=== PATIENT | female | born 1955 | race Caucasian/White ===

== ENCOUNTER → 2016-06-11 | Outpatient (CLI) | payer OTHER ==
[~2016-06-11] MED LIST: ACET-1311 PO; ATOR-22 PO; CALC-5 PO; CARB-157 PO; CHOL1TAB76 PO; CLC100 PO; CLZ100 PO; CTP3 PO; CZR50 PO; DICL1GEL12 TOP; DLCS PR; DLN100 PO; FLTE PR; HYDR-5688 PO; LEVE1TAB57 PO; MAGNSUS5 PO; METO100T14 PO; MULT-412 PO; OMEG1200 PO; OMEP20CA9 PO; TRAZ1TAB52 PO; [UNRECOGNIZED DRUG - CODE] TOP
[2016-06-11 09:29] LABS: BASO % 0.4 %; BASO ABS # 0.03 K/uL (0-0.2); COMPLETE YES; EOS % 2.6 %; HEMATOCRIT 37.9 % (37-47); LYMPH % 47.9 %; LYMPH ABS # 3.48 K/uL (1.2-3.4); MEAN CELL VOLUME 89.6 fL (80-100); MEAN CORPUSCULAR HGB CONC 34.6 g/dl (32-36); MEAN PLATELET VOLUME 11.9 fL (7.4-10.4); MONO % 9.1 %; PLATELET COUNT 206 K/uL (130-400); RED BLOOD COUNT 4.23 M/uL (4.2-5.4); WHITE BLOOD COUNT 7.27 K/uL (4.8-10.8)
== END ==
LOC: C.LABUPBEA 08:59
PROVIDERS: ATTEND Family Medicine
DX: F25.9 Schizoaffective disorder, unspecified (principal)

== ENCOUNTER → 2016-06-18 | Outpatient (CLI) | payer OTHER ==
[2016-06-18 09:15] LABS: BASO % 0.6 %; BASO ABS # 0.04 K/uL (0-0.2); COMPLETE YES; EOS % 2.2 %; HEMATOCRIT 39.2 % (37-47); IG% 0.1 %; LYMPH % 48.9 %; LYMPH ABS # 3.54 K/uL (1.2-3.4); MEAN CELL VOLUME 89.7 fL (80-100); MEAN CORPUSCULAR HEMOGLOBIN 30.4 pg (25-34); MEAN CORPUSCULAR HGB CONC 33.9 g/dl (32-36); MEAN PLATELET VOLUME 11.5 fL (7.4-10.4); NEUT % 39.2 %; PLATELET COUNT 194 K/uL (130-400); RED BLOOD COUNT 4.37 M/uL (4.2-5.4); WHITE BLOOD COUNT 7.24 K/uL (4.8-10.8)
== END ==
LOC: C.LABUPBEA 09:06
PROVIDERS: ATTEND Family Medicine
DX: F25.9 Schizoaffective disorder, unspecified (principal)

== ENCOUNTER → 2016-06-25 | Outpatient (CLI) | payer OTHER ==
[2016-06-25 09:44] LABS: BASO % 0.6 %; BASO ABS # 0.04 K/uL (0-0.2); COMPLETE YES; EOS % 2.4 %; HEMATOCRIT 37.2 % (37-47); IG% 0.3 %; LYMPH % 49.8 %; LYMPH ABS # 3.55 K/uL (1.2-3.4); MEAN CORPUSCULAR HEMOGLOBIN 31.1 pg (25-34); MEAN CORPUSCULAR HGB CONC 34.9 g/dl (32-36); MEAN PLATELET VOLUME 11.9 fL (7.4-10.4); NEUT % 37.9 %; PLATELET COUNT 209 K/uL (130-400); RED BLOOD COUNT 4.18 M/uL (4.2-5.4); WHITE BLOOD COUNT 7.13 K/uL (4.8-10.8)
== END | disposition home or self-care (01) ==
LOC: C.LABUPBEA 09:25
PROVIDERS: ATTEND Family Medicine
DX: F25.9 Schizoaffective disorder, unspecified (principal)

== ENCOUNTER → 2016-07-02 | Outpatient (CLI) | payer OTHER ==
[2016-07-02 09:31] LABS: BASO % 0.4 %; BASO ABS # 0.03 K/uL (0-0.2); COMPLETE YES; EOS % 2.5 %; HEMATOCRIT 37.4 % (37-47); IG% 0.3 %; LYMPH % 45.3 %; LYMPH ABS # 3.25 K/uL (1.2-3.4); MEAN CELL VOLUME 89.5 fL (80-100); MEAN CORPUSCULAR HEMOGLOBIN 30.6 pg (25-34); MEAN CORPUSCULAR HGB CONC 34.2 g/dl (32-36); MEAN PLATELET VOLUME 12.2 fL (7.4-10.4); MONO % 8.9 %; NEUT % 42.6 %; PLATELET COUNT 202 K/uL (130-400); RED BLOOD COUNT 4.18 M/uL (4.2-5.4); WHITE BLOOD COUNT 7.18 K/uL (4.8-10.8)
== END | disposition home or self-care (01) ==
LOC: C.LABUPBEA 09:04
PROVIDERS: ATTEND Family Medicine
DX: F25.9 Schizoaffective disorder, unspecified (principal)

== ENCOUNTER → 2016-07-10 | Outpatient (CLI) | payer OTHER ==
[2016-07-10 08:44] LABS: ALT/SGPT 51 U/L (12-78); BLOOD UREA NITROGEN 17 mg/dl (7-18); BUN/CREATININE RATIO 22.4 (10-20); CARBON DIOXIDE 22 mmol/L (21-32); CHLORIDE 104 mmol/L (98-107); CREATININE 0.74 mg/dl (0.60-1.20); GLUCOSE 175 mg/dl (70-99); SODIUM 139 mmol/L (136-145)
[2016-07-10 08:47] LABS: ALB/GLOB RATIO 0.8 (0.9-2); ALKALINE PHOSPHATASE 170 U/L (45-117); AST/SGOT 36 U/L (15-37)
== END ==
LOC: C.LABUPBEA 08:07
PROVIDERS: ATTEND Family Medicine
DX: F25.9 Schizoaffective disorder, unspecified (principal)

== ENCOUNTER → 2016-07-17 | Outpatient (CLI) | payer OTHER ==
[2016-07-17 09:05] LABS: BASO % 0.5 %; BASO ABS # 0.04 K/uL (0-0.2); COMPLETE YES; HEMATOCRIT 37.6 % (37-47); IG% 0.1 %; LYMPH ABS # 3.58 K/uL (1.2-3.4); MEAN CELL VOLUME 89.7 fL (80-100); MEAN CORPUSCULAR HGB CONC 34.6 g/dl (32-36); MEAN PLATELET VOLUME 11.8 fL (7.4-10.4); MONO % 8.7 %; NEUT % 43.7 %; PLATELET COUNT 216 K/uL (130-400); RED BLOOD COUNT 4.19 M/uL (4.2-5.4); WHITE BLOOD COUNT 7.95 K/uL (4.8-10.8)
== END ==
LOC: C.LABUPBEA 08:49
PROVIDERS: ATTEND Family Medicine
DX: F25.9 Schizoaffective disorder, unspecified (principal)

== ENCOUNTER → 2016-07-24 | Outpatient (CLI) | payer OTHER ==
[2016-07-24 09:17] LABS: MEAN CORPUSCULAR HGB CONC 35.3 g/dl (32-36); PLATELET COUNT 209 K/uL (130-400)
[2016-07-24 09:46] LABS: BASO % 0.6 %; BASO ABS # 0.04 K/uL (0-0.2); COMPLETE YES; IG% 0.1 %; LYMPH % 46.5 %; MEAN CELL VOLUME 89.2 fL (80-100); MEAN CORPUSCULAR HEMOGLOBIN 31.5 pg (25-34); NEUT % 42.8 %; RED BLOOD COUNT 4.26 M/uL (4.2-5.4)
== END ==
LOC: C.LABUPBEA 09:04
PROVIDERS: ATTEND Family Medicine
DX: F25.9 Schizoaffective disorder, unspecified (principal)

== ENCOUNTER → 2016-07-30 | Outpatient (CLI) | payer OTHER ==
[2016-07-30 09:47] LABS: HEMATOCRIT 37.8 % (37-47); MEAN CELL VOLUME 90.2 fL (80-100); MEAN CORPUSCULAR HEMOGLOBIN 31.5 pg (25-34); MEAN CORPUSCULAR HGB CONC 34.9 g/dl (32-36); MEAN PLATELET VOLUME 12.3 fL (7.4-10.4); PLATELET COUNT 186 K/uL (130-400); RED BLOOD COUNT 4.19 M/uL (4.2-5.4); WHITE BLOOD COUNT 6.83 K/uL (4.8-10.8)
[2016-07-30 10:42] LABS: BASO % 0.4 %; BASO ABS # 0.03 K/uL (0-0.2); COMPLETE YES; EOS % 2.6 %; IG% 0.3 %; LYMPH % 51.4 %; LYMPH ABS # 3.51 K/uL (1.2-3.4); MONO % 9.1 %; NEUT % 36.2 %; SMUDGE CELLS PRESENT
== END ==
LOC: C.LABUPBEA 09:10
PROVIDERS: ATTEND Family Medicine
DX: F25.9 Schizoaffective disorder, unspecified (principal)

== ENCOUNTER → 2016-08-06 | Outpatient (CLI) | payer OTHER ==
[2016-08-06 10:08] LABS: BASO % 0.7 %; BASO ABS # 0.05 K/uL (0-0.2); COMPLETE YES; EOS % 2.5 %; HEMATOCRIT 37.2 % (37-47); IG% 0.3 %; LYMPH % 48.7 %; LYMPH ABS # 3.52 K/uL (1.2-3.4); MEAN CELL VOLUME 88.2 fL (80-100); MEAN CORPUSCULAR HGB CONC 35.2 g/dl (32-36); MEAN PLATELET VOLUME 11.7 fL (7.4-10.4); NEUT % 39.8 %; PLATELET COUNT 219 K/uL (130-400); RED BLOOD COUNT 4.22 M/uL (4.2-5.4); WHITE BLOOD COUNT 7.23 K/uL (4.8-10.8)
== END ==
LOC: C.LABUPBEA 09:46
PROVIDERS: ATTEND Family Medicine
DX: F25.9 Schizoaffective disorder, unspecified (principal)

== ENCOUNTER → 2016-08-13 | Outpatient (CLI) | payer OTHER ==
[2016-08-13 09:48] LABS: HEMATOCRIT 38.7 % (37-47); MEAN CELL VOLUME 89.2 fL (80-100); MEAN CORPUSCULAR HEMOGLOBIN 30.2 pg (25-34); MEAN CORPUSCULAR HGB CONC 33.9 g/dl (32-36); MEAN PLATELET VOLUME 11.3 fL (7.4-10.4); PLATELET COUNT 227 K/uL (130-400); RED BLOOD COUNT 4.34 M/uL (4.2-5.4)
[2016-08-13 10:03] LABS: ALT/SGPT 46 U/L (12-78); AST/SGOT 27 U/L (15-37); BLOOD UREA NITROGEN 20 mg/dl (7-18); BUN/CREATININE RATIO 30.3 (10-20); CALCIUM 8.5 mg/dl (8.5-10.1); CARBON DIOXIDE 26 mmol/L (21-32); CHLORIDE 104 mmol/L (98-107); CREATININE 0.67 mg/dl (0.60-1.20); GLUCOSE 119 mg/dl (70-99); SODIUM 140 mmol/L (136-145)
[2016-08-13 10:13] LABS: ALB/GLOB RATIO 0.9 (0.9-2); ALKALINE PHOSPHATASE 144 U/L (45-117); CHOLESTEROL 189 mg/dl (0-200); HDL CHOLESTEROL 47 mg/dl; LDL CHOLESTEROL CALCULATED 99 mg/dl; THYROID STIMULATING HORMONE 0.903 uIu/ml (0.300-4.500); TRIGLYCERIDES 217 mg/dl (0-150); VERY LOW DENSITY LIPOPROT CALC 43 mg/dl
[2016-08-13 10:27] LABS: BASO % 0.3 %; BASO ABS # 0.02 K/uL (0-0.2); COMPLETE YES; EOS % 2.6 %; IG% 0.1 %; LYMPH % 51.9 %; LYMPH ABS # 3.53 K/uL (1.2-3.4); MONO % 7.8 %; NEUT % 37.3 %
== END ==
LOC: C.LABUPBEA 09:14
PROVIDERS: ATTEND Family Medicine
DX: E55.9 Vitamin D deficiency, unspecified (principal); R73.9 Hyperglycemia, unspecified; E78.5 Hyperlipidemia, unspecified; F25.9 Schizoaffective disorder, unspecified; G40.909 Epilepsy, unspecified, not intractable, without status epilepticus

== ENCOUNTER → 2016-08-21 | Outpatient (CLI) | payer OTHER ==
[~2016-08-21] MED LIST changes: -CARB-157 PO; +CARB10TA4 PO
[2016-08-21 10:13] LABS: BASO % 0.5 %; BASO ABS # 0.03 K/uL (0-0.2); COMPLETE YES; EOS % 2.3 %; HEMATOCRIT 37.7 % (37-47); IG% 0.2 %; LYMPH % 48.9 %; LYMPH ABS # 2.98 K/uL (1.2-3.4); MEAN CELL VOLUME 87.7 fL (80-100); MEAN CORPUSCULAR HEMOGLOBIN 30.2 pg (25-34); MEAN CORPUSCULAR HGB CONC 34.5 g/dl (32-36); MEAN PLATELET VOLUME 11.5 fL (7.4-10.4); NEUT % 40.1 %; PLATELET COUNT 230 K/uL (130-400); WHITE BLOOD COUNT 6.09 K/uL (4.8-10.8)
== END ==
LOC: C.LABUPBEA 09:42
PROVIDERS: ATTEND Family Medicine
DX: F25.9 Schizoaffective disorder, unspecified (principal)

== ENCOUNTER → 2016-08-27 | Outpatient (CLI) | payer OTHER ==
[~2016-08-27] MED LIST changes: +CARB-157 PO; -CARB10TA4 PO
[2016-08-27 09:42] LABS: BASO % 0.3 %; BASO ABS # 0.02 K/uL (0-0.2); COMPLETE YES; EOS % 2.6 %; HEMATOCRIT 37.4 % (37-47); IG% 0.3 %; LYMPH % 45.8 %; LYMPH ABS # 3.19 K/uL (1.2-3.4); MEAN CORPUSCULAR HEMOGLOBIN 30.5 pg (25-34); MEAN CORPUSCULAR HGB CONC 34.2 g/dl (32-36); MEAN PLATELET VOLUME 11.4 fL (7.4-10.4); MONO % 8.8 %; NEUT % 42.2 %; PLATELET COUNT 209 K/uL (130-400); WHITE BLOOD COUNT 6.97 K/uL (4.8-10.8)
== END ==
LOC: C.LABUPBEA 09:29
PROVIDERS: ATTEND Family Medicine
DX: F25.9 Schizoaffective disorder, unspecified (principal)

== ENCOUNTER → 2016-09-03 | Outpatient (CLI) | payer OTHER ==
[~2016-09-03] MED LIST changes: -CARB-157 PO; +CARB10TA4 PO
[2016-09-03 09:40] LABS: BASO % 0.9 %; BASO ABS # 0.05 K/uL (0-0.2); COMPLETE YES; EOS % 3.2 %; HEMATOCRIT 38.5 % (37-47); IG% 0.2 %; LYMPH % 31.1 %; LYMPH ABS # 1.67 K/uL (1.2-3.4); MEAN CELL VOLUME 89.7 fL (80-100); MEAN CORPUSCULAR HEMOGLOBIN 29.8 pg (25-34); MEAN CORPUSCULAR HGB CONC 33.2 g/dl (32-36); MEAN PLATELET VOLUME 11.6 fL (7.4-10.4); MONO % 11.7 %; NEUT % 52.9 %; PLATELET COUNT 187 K/uL (130-400); RED BLOOD COUNT 4.29 M/uL (4.2-5.4); WHITE BLOOD COUNT 5.37 K/uL (4.8-10.8)
== END | disposition home or self-care (01) ==
LOC: C.LABUPBEA 09:12
PROVIDERS: ATTEND Family Medicine
DX: F25.9 Schizoaffective disorder, unspecified (principal)

== ENCOUNTER → 2016-09-10 | Outpatient (CLI) | payer OTHER ==
[2016-09-10 10:58] LABS: HEMATOCRIT 37.7 % (37-47); MEAN CELL VOLUME 90.6 fL (80-100); MEAN CORPUSCULAR HEMOGLOBIN 30.3 pg (25-34); MEAN CORPUSCULAR HGB CONC 33.4 g/dl (32-36); MEAN PLATELET VOLUME 11.6 fL (7.4-10.4); PLATELET COUNT 163 K/uL (130-400); RED BLOOD COUNT 4.16 M/uL (4.2-5.4); WHITE BLOOD COUNT 4.69 K/uL (4.8-10.8)
[2016-09-10 11:48] LABS: BASO % 0.2 %; BASO ABS # 0.01 K/uL (0-0.2); COMPLETE YES; EOS % 1.9 %; IG% 0.4 %; LYMPH % 54.6 %; LYMPH ABS # 2.56 K/uL (1.2-3.4); MONO % 9.8 %; NEUT % 33.1 %
[2016-09-10 11:50] LABS: LARGE PLATELETS 1+
== END ==
LOC: C.LABUPBEA 09:24
PROVIDERS: ATTEND Family Medicine
DX: F25.9 Schizoaffective disorder, unspecified (principal)

== ENCOUNTER → 2016-09-13 | Outpatient (CLI) | payer OTHER ==
[2016-09-13 08:37] LABS: BASO % 0.1 %; BASO ABS # 0.01 K/uL (0-0.2); COMPLETE YES; EOS % 0.5 %; HEMATOCRIT 36.5 % (37-47); IG% 1.3 %; LYMPH % 36.2 %; MEAN CELL VOLUME 87.5 fL (80-100); MEAN CORPUSCULAR HEMOGLOBIN 31.2 pg (25-34); MEAN CORPUSCULAR HGB CONC 35.6 g/dl (32-36); MEAN PLATELET VOLUME 11.5 fL (7.4-10.4); MONO % 7.4 %; NEUT % 54.5 %; PLATELET COUNT 210 K/uL (130-400); RED BLOOD COUNT 4.17 M/uL (4.2-5.4); WHITE BLOOD COUNT 7.73 K/uL (4.8-10.8)
[2016-09-13 08:45] LABS: ALT/SGPT 53 U/L (12-78); AST/SGOT 32 U/L (15-37); BLOOD UREA NITROGEN 15 mg/dl (7-18); BUN/CREATININE RATIO 25.1 (10-20); CALCIUM 8.7 mg/dl (8.5-10.1); CARBON DIOXIDE 25 mmol/L (21-32); CHLORIDE 103 mmol/L (98-107); CREATININE 0.59 mg/dl (0.60-1.20); GLUCOSE 145 mg/dl (70-99); SODIUM 138 mmol/L (136-145)
[2016-09-13 08:47] LABS: ALB/GLOB RATIO 0.8 (0.9-2); ALKALINE PHOSPHATASE 142 U/L (45-117)
[2016-09-13 08:56] LABS: ESTIMATED AVERAGE GLUCOSE 154 mg/dl; HA1C FLAG Normal (Normal)
== END ==
LOC: C.LABUPBEA 08:05
PROVIDERS: ATTEND Family Medicine
DX: R73.9 Hyperglycemia, unspecified (principal); E55.9 Vitamin D deficiency, unspecified; F25.9 Schizoaffective disorder, unspecified

== ENCOUNTER → 2016-09-17 | Outpatient (CLI) | payer OTHER ==
[2016-09-17 08:20] LABS: HEMATOCRIT 38.8 % (37-47); MEAN CELL VOLUME 87.6 fL (80-100); MEAN CORPUSCULAR HGB CONC 34.3 g/dl (32-36); PLATELET COUNT 247 K/uL (130-400); RED BLOOD COUNT 4.43 M/uL (4.2-5.4); WHITE BLOOD COUNT 6.78 K/uL (4.8-10.8)
[2016-09-17 09:28] LABS: BASO % 0.3 %; BASO ABS # 0.02 K/uL (0-0.2); COMPLETE YES; EOS % 1.8 %; IG% 0.3 %; LYMPH % 54.9 %; LYMPH ABS # 3.72 K/uL (1.2-3.4); MONO % 8.7 %
== END ==
LOC: C.LABUPBEA 08:00
PROVIDERS: ATTEND Family Medicine
DX: F25.9 Schizoaffective disorder, unspecified (principal)

== ENCOUNTER → 2016-09-24 | Outpatient (CLI) | payer OTHER ==
[2016-09-24 09:39] LABS: BASO % 0.4 %; BASO ABS # 0.03 K/uL (0-0.2); COMPLETE YES; EOS % 1.7 %; HEMATOCRIT 38.9 % (37-47); IG% 0.1 %; LYMPH % 47.6 %; LYMPH ABS # 3.73 K/uL (1.2-3.4); MEAN CELL VOLUME 88.4 fL (80-100); MEAN CORPUSCULAR HEMOGLOBIN 31.1 pg (25-34); MEAN CORPUSCULAR HGB CONC 35.2 g/dl (32-36); MEAN PLATELET VOLUME 12.2 fL (7.4-10.4); MONO % 6.8 %; NEUT % 43.4 %; PLATELET COUNT 253 K/uL (130-400); WHITE BLOOD COUNT 7.83 K/uL (4.8-10.8)
== END ==
LOC: C.LABUPBEA 09:23
PROVIDERS: ATTEND Family Medicine
DX: F25.9 Schizoaffective disorder, unspecified (principal)

== ENCOUNTER → 2016-10-01 | Outpatient (CLI) | payer OTHER ==
[2016-10-01 10:05] LABS: BASO % 0.4 %; BASO ABS # 0.03 K/uL (0-0.2); COMPLETE YES; EOS % 2.6 %; HEMATOCRIT 38.1 % (37-47); IG% 0.1 %; LYMPH % 44.9 %; LYMPH ABS # 3.29 K/uL (1.2-3.4); MEAN CELL VOLUME 91.8 fL (80-100); MEAN CORPUSCULAR HEMOGLOBIN 30.4 pg (25-34); MEAN CORPUSCULAR HGB CONC 33.1 g/dl (32-36); MEAN PLATELET VOLUME 11.1 fL (7.4-10.4); MONO % 8.9 %; NEUT % 43.1 %; PLATELET COUNT 227 K/uL (130-400); RED BLOOD COUNT 4.15 M/uL (4.2-5.4); WHITE BLOOD COUNT 7.33 K/uL (4.8-10.8)
== END | disposition home or self-care (01) ==
LOC: C.LABUPBEA 09:43
PROVIDERS: ATTEND Family Medicine
DX: F25.9 Schizoaffective disorder, unspecified (principal)

== ENCOUNTER → 2016-10-08 | Outpatient (CLI) | payer OTHER ==
[2016-10-08 10:16] LABS: BASO % 0.6 %; BASO ABS # 0.04 K/uL (0-0.2); COMPLETE YES; EOS % 2.2 %; HEMATOCRIT 38.5 % (37-47); IG% 0.1 %; LYMPH % 44.2 %; LYMPH ABS # 3.19 K/uL (1.2-3.4); MEAN CELL VOLUME 91.7 fL (80-100); MEAN CORPUSCULAR HEMOGLOBIN 30.5 pg (25-34); MEAN CORPUSCULAR HGB CONC 33.2 g/dl (32-36); MEAN PLATELET VOLUME 11.1 fL (7.4-10.4); NEUT % 44.9 %; PLATELET COUNT 232 K/uL (130-400); WHITE BLOOD COUNT 7.22 K/uL (4.8-10.8)
== END ==
LOC: C.LABUPBEA 09:28
PROVIDERS: ATTEND Family Medicine
DX: F25.9 Schizoaffective disorder, unspecified (principal); G40.909 Epilepsy, unspecified, not intractable, without status epilepticus

== ENCOUNTER → 2016-10-22 | Outpatient (CLI) | payer OTHER ==
[2016-10-22 09:51] LABS: BASO % 0.4 %; BASO ABS # 0.03 K/uL (0-0.2); COMPLETE YES; EOS % 2.3 %; HEMATOCRIT 37.9 % (37-47); IG% 0.1 %; LYMPH % 45.6 %; LYMPH ABS # 3.31 K/uL (1.2-3.4); MEAN CORPUSCULAR HEMOGLOBIN 30.6 pg (25-34); MEAN CORPUSCULAR HGB CONC 33.2 g/dl (32-36); MEAN PLATELET VOLUME 11.7 fL (7.4-10.4); NEUT % 42.6 %; PLATELET COUNT 234 K/uL (130-400); RED BLOOD COUNT 4.12 M/uL (4.2-5.4); WHITE BLOOD COUNT 7.26 K/uL (4.8-10.8)
== END | disposition home or self-care (01) ==
LOC: C.LABUPBEA 09:37
PROVIDERS: ATTEND Family Medicine
DX: F25.9 Schizoaffective disorder, unspecified (principal)

== ENCOUNTER → 2016-10-29 | Outpatient (CLI) | payer OTHER ==
[2016-10-29 10:50] LABS: BASO % 0.5 %; BASO ABS # 0.04 K/uL (0-0.2); COMPLETE YES; EOS % 2.2 %; HEMATOCRIT 39.5 % (37-47); IG% 0.1 %; LYMPH % 48.2 %; LYMPH ABS # 3.57 K/uL (1.2-3.4); MEAN CELL VOLUME 91.9 fL (80-100); MEAN CORPUSCULAR HEMOGLOBIN 30.2 pg (25-34); MEAN CORPUSCULAR HGB CONC 32.9 g/dl (32-36); MEAN PLATELET VOLUME 11.5 fL (7.4-10.4); MONO % 6.1 %; NEUT % 42.9 %; PLATELET COUNT 235 K/uL (130-400)
== END ==
LOC: C.LABUPBEA 09:20
PROVIDERS: ATTEND Nurse Practitioner Family
DX: F25.9 Schizoaffective disorder, unspecified (principal)

== ENCOUNTER → 2016-11-12 | Outpatient (CLI) | payer OTHER ==
[2016-11-12 10:18] LABS: BASO % 0.2 %; BASO ABS # 0.02 K/uL (0-0.2); COMPLETE YES; EOS % 1.2 %; HEMATOCRIT 38.8 % (37-47); IG% 0.1 %; LYMPH % 49.3 %; LYMPH ABS # 4.15 K/uL (1.2-3.4); MEAN CELL VOLUME 91.5 fL (80-100); MEAN CORPUSCULAR HEMOGLOBIN 30.9 pg (25-34); MEAN CORPUSCULAR HGB CONC 33.8 g/dl (32-36); MEAN PLATELET VOLUME 11.9 fL (7.4-10.4); MONO % 7.7 %; NEUT % 41.5 %; PLATELET COUNT 239 K/uL (130-400); RED BLOOD COUNT 4.24 M/uL (4.2-5.4); WHITE BLOOD COUNT 8.41 K/uL (4.8-10.8)
== END ==
LOC: C.LABUPBEA 09:22
PROVIDERS: ATTEND Family Medicine
DX: F25.9 Schizoaffective disorder, unspecified (principal)

== ENCOUNTER → 2016-11-19 | Outpatient (CLI) | payer OTHER ==
[2016-11-19 13:33] LABS: HEMATOCRIT 39.1 % (37-47); MEAN CELL VOLUME 92.9 fL (80-100); MEAN CORPUSCULAR HEMOGLOBIN 30.9 pg (25-34); MEAN CORPUSCULAR HGB CONC 33.2 g/dl (32-36); MEAN PLATELET VOLUME 11.7 fL (7.4-10.4); PLATELET COUNT 209 K/uL (130-400); RED BLOOD COUNT 4.21 M/uL (4.2-5.4); WHITE BLOOD COUNT 6.65 K/uL (4.8-10.8)
[2016-11-19 13:40] LABS: BASO % 0.5 %; BASO ABS # 0.03 K/uL (0-0.2); COMPLETE YES; ECHINOCYTES 1+; EOS % 2.4 %; IG% 0.2 %; LYMPH % 51.1 %; MONO % 7.8 %
== END ==
LOC: C.LABUPBEA 09:12
PROVIDERS: ATTEND Family Medicine
DX: F25.9 Schizoaffective disorder, unspecified (principal)

== ENCOUNTER → 2016-11-26 | Outpatient (CLI) | payer OTHER ==
[2016-11-26 11:01] LABS: BASO % 0.6 %; BASO ABS # 0.04 K/uL (0-0.2); COMPLETE YES; EOS % 2.2 %; HEMATOCRIT 37.5 % (37-47); IG% 0.1 %; LYMPH % 46.7 %; LYMPH ABS # 3.13 K/uL (1.2-3.4); MEAN CELL VOLUME 91.9 fL (80-100); MEAN CORPUSCULAR HEMOGLOBIN 30.9 pg (25-34); MEAN CORPUSCULAR HGB CONC 33.6 g/dl (32-36); MEAN PLATELET VOLUME 11.5 fL (7.4-10.4); MONO % 8.8 %; NEUT % 41.6 %; PLATELET COUNT 207 K/uL (130-400); RED BLOOD COUNT 4.08 M/uL (4.2-5.4)
== END ==
LOC: C.LABUPBEA 09:54
PROVIDERS: ATTEND Family Medicine
DX: F25.9 Schizoaffective disorder, unspecified (principal); Z79.899 Other long term (current) drug therapy

== ENCOUNTER → 2016-12-03 | Outpatient (CLI) | payer OTHER ==
[~2016-12-03] MED LIST changes: +CARB-157 PO; -CARB10TA4 PO
[2016-12-03 10:59] LABS: BASO % 0.5 %; BASO ABS # 0.04 K/uL (0-0.2); COMPLETE YES; EOS % 1.9 %; HEMATOCRIT 40.5 % (37-47); IG% 0.1 %; LYMPH % 45.1 %; LYMPH ABS # 3.73 K/uL (1.2-3.4); MEAN CORPUSCULAR HEMOGLOBIN 30.8 pg (25-34); MEAN CORPUSCULAR HGB CONC 33.8 g/dl (32-36); MEAN PLATELET VOLUME 11.6 fL (7.4-10.4); MONO % 6.5 %; NEUT % 45.9 %; PLATELET COUNT 241 K/uL (130-400); RED BLOOD COUNT 4.45 M/uL (4.2-5.4); WHITE BLOOD COUNT 8.27 K/uL (4.8-10.8)
== END ==
LOC: C.LABUPBEA 08:49
PROVIDERS: ATTEND Nurse Practitioner Family
DX: F25.9 Schizoaffective disorder, unspecified (principal)

== ENCOUNTER → 2016-12-09 | Outpatient (CLI) | payer OTHER ==
[2016-12-09 09:28] LABS: BASO % 0.5 %; BASO ABS # 0.04 K/uL (0-0.2); COMPLETE YES; EOS % 2.1 %; HEMATOCRIT 38.7 % (37-47); IG% 0.1 %; LYMPH % 45.3 %; LYMPH ABS # 3.63 K/uL (1.2-3.4); MEAN CELL VOLUME 91.3 fL (80-100); MEAN CORPUSCULAR HEMOGLOBIN 30.2 pg (25-34); MEAN CORPUSCULAR HGB CONC 33.1 g/dl (32-36); MEAN PLATELET VOLUME 11.6 fL (7.4-10.4); MONO % 7.7 %; NEUT % 44.3 %; PLATELET COUNT 215 K/uL (130-400); RED BLOOD COUNT 4.24 M/uL (4.2-5.4); WHITE BLOOD COUNT 8.01 K/uL (4.8-10.8)
== END ==
LOC: C.LABUPBEA 08:53
PROVIDERS: ATTEND Nurse Practitioner Family
DX: F25.9 Schizoaffective disorder, unspecified (principal)

== ENCOUNTER → 2016-12-17 | Outpatient (CLI) | payer OTHER ==
[2016-12-17 10:07] LABS: BASO % 0.4 %; BASO ABS # 0.03 K/uL (0-0.2); COMPLETE YES; EOS % 1.8 %; HEMATOCRIT 41.4 % (37-47); IG% 0.2 %; LYMPH % 41.7 %; LYMPH ABS # 3.38 K/uL (1.2-3.4); MEAN CELL VOLUME 91.2 fL (80-100); MEAN CORPUSCULAR HEMOGLOBIN 29.7 pg (25-34); MEAN CORPUSCULAR HGB CONC 32.6 g/dl (32-36); MEAN PLATELET VOLUME 11.5 fL (7.4-10.4); MONO % 7.5 %; NEUT % 48.4 %; PLATELET COUNT 202 K/uL (130-400); RED BLOOD COUNT 4.54 M/uL (4.2-5.4); WHITE BLOOD COUNT 8.11 K/uL (4.8-10.8)
== END | disposition home or self-care (01) ==
LOC: C.LABUPBEA 09:32
PROVIDERS: ATTEND Family Medicine
DX: F25.9 Schizoaffective disorder, unspecified (principal)

== ENCOUNTER → 2016-12-24 | Outpatient (CLI) | payer OTHER ==
[2016-12-24 09:33] LABS: HEMATOCRIT 37.6 % (37-47); MEAN CELL VOLUME 90.4 fL (80-100); MEAN CORPUSCULAR HEMOGLOBIN 30.3 pg (25-34); MEAN CORPUSCULAR HGB CONC 33.5 g/dl (32-36); PLATELET COUNT 235 K/uL (130-400); RED BLOOD COUNT 4.16 M/uL (4.2-5.4); WHITE BLOOD COUNT 7.01 K/uL (4.8-10.8)
[2016-12-24 10:36] LABS: BASO % 0.3 %; BASO ABS # 0.02 K/uL (0-0.2); COMPLETE YES; EOS % 2.3 %; IG% 0.1 %; LYMPH % 50.2 %; LYMPH ABS # 3.52 K/uL (1.2-3.4); MONO % 8.4 %; NEUT % 38.7 %
== END ==
LOC: C.LABUPBEA 08:43
PROVIDERS: ATTEND Family Medicine
DX: Z01.89 Encounter for other specified special examinations (principal)

== ENCOUNTER → 2016-12-25 | Outpatient (CLI) | payer OTHER ==
--- NOTE | 2016-12-25 15:43 | MAMMOGRAPHY REPORT ---
BILATERAL DIGITAL SCREENING MAMMOGRAM WITH CAD: 12/25/2016 CLINICAL HISTORY: Routine screening. Patient has no complaints. TECHNIQUE: Bilateral CC and MLO 2-D views were obtained. Tomosynthesis was also attempted on the fir st image (right CC projection), but the patient could not tolerate holding still for the exam. There fore the decision was made to perform only 2-D mammograms. Current study was also evaluated with a C omputer Aided Detection (CAD) system. COMPARISON: Comparison is made to exams dated: 03/03/2014 mammogram, 10/15/2013 mammogram, 08/11/2013 karthik mogram, 07/27/2013 mammogram, and 07/24/2012 mammogram - [facility]. BREAST COMPOSITION: The tissue of both breasts is almost entirely fatty. FINDINGS: There is a possible grouping of microcalcifications in the upper outer anterior left breas t, for which additional spot magnification views are recommended. There are other scattered benign-appearing microcalcifications bilaterally. No other suspicious mass , architectural distortion or cluster of microcalcifications is seen. IMPRESSION: ACR BI-RADS CATEGORY 0: INCOMPLETE EVALUATION: NEED ADDITIONAL IMAGING EVALUATION The possible grouping of microcalcifications in the upper outer anterior left breast needs additional evaluation. The patient will be called to schedule an appointment. Approximately 10% of breast cancers are not detected with mammography. A negative mammographic report should not delay biopsy if a clinically suggestive mass is present. Krysta Brunner M.D. ay/:12/25/2016 15:32:30 [employer] Former: Arabella CRUZ(Willy)(Libby)(HARVEY), [facility] letter sent: Addl Imaging 0 BI-RADS Code: ACR BI-RADS Category 0: Incomplete Evaluation: Need Additional Imaging Evaluation
== END ==
LOC: C.MAMM 14:41
PROVIDERS: ATTEND Family Medicine
DX: Z12.31 Encounter for screening mammogram for malignant neoplasm of breast (principal); R92.8 Other abnormal and inconclusive findings on diagnostic imaging of breast

== ENCOUNTER → 2016-12-31 | Outpatient (CLI) | payer OTHER ==
[2016-12-31 10:04] LABS: BASO % 0.4 %; BASO ABS # 0.03 K/uL (0-0.2); COMPLETE YES; EOS % 1.7 %; HEMATOCRIT 38.2 % (37-47); IG% 0.4 %; LYMPH % 41.5 %; LYMPH ABS # 3.23 K/uL (1.2-3.4); MEAN CELL VOLUME 91.2 fL (80-100); MEAN CORPUSCULAR HEMOGLOBIN 30.5 pg (25-34); MEAN CORPUSCULAR HGB CONC 33.5 g/dl (32-36); MEAN PLATELET VOLUME 11.4 fL (7.4-10.4); MONO % 8.4 %; NEUT % 47.6 %; PLATELET COUNT 240 K/uL (130-400); RED BLOOD COUNT 4.19 M/uL (4.2-5.4); WHITE BLOOD COUNT 7.78 K/uL (4.8-10.8)
== END | disposition home or self-care (01) ==
LOC: C.LABUPBEA 08:38
PROVIDERS: ATTEND Family Medicine
DX: F25.9 Schizoaffective disorder, unspecified (principal)

== ENCOUNTER → 2017-01-07 | Outpatient (CLI) | payer OTHER ==
--- NOTE | 2017-01-07 13:09 | MAMMOGRAPHY REPORT ---
UNILATERAL LEFT DIGITAL DIAGNOSTIC MAMMOGRAM: 01/07/2017 CLINICAL HISTORY: 61-year-old woman called back from screening mammography for possible increasing mi crocalcifications in the upper outer anterior left breast. A stereotactic biopsy was originally josephine mmended in August 2013. When the patient presented for biopsy she was not able to consent and also de clined the procedure, therefore it was canceled. Subsequent follow-up spot magnification views of th e left breast were performed in February 2014 and additional follow-up is recommended. The patient subsequently failed to follow-up until her screening mammogram performed 3 years later, on 12/25/2016 . TECHNIQUE: Spot magnification left CC and ML views were obtained. COMPARISON: Comparison is made to exams dated: 12/25/2016 mammogram, 03/03/2014 mammogram, 10/15/2013 ma mmogram, 08/11/2013 mammogram, 07/27/2013 mammogram, and 07/24/2012 mammogram - [facility]. BREAST COMPOSITION: There are scattered areas of fibroglandular density in the left breast. FINDINGS: There is a 13 mm cluster of punctate and amorphous microcalcifications in the upper outer anterior left breast. When comparing to the prior spot magnification views obtained in 2013, the maria guadalupe cifications appear increased in number. The previous cluster measured 3 mm. Given the interval oscar ge, tissue sampling is again recommended. No obvious associated asymmetry, mass or architectural dis tortion. None of the calcifications were identified in this location on the 2013 mammograms. IMPRESSION: ACR BI-RADS CATEGORY 4B: INTERMEDIATE SUSPICION FOR MALIGNANCY There are increased clustered microcalcifications in the upper outer anterior left breast, previously measuring 3 mm now measuring 13 mm in maximum dimension. These calcifications are suspicious, warra nting definitive characterization with tissue sampling. These results and recommendations were discussed with the patient and her aid at the time of the diag nostic exam. After discussing the results and the entire procedure of stereotactic biopsy as well as needle localization and surgical biopsy, the patient has poor insight and little understanding of my description of the procedures. Therefore, I will discuss these findings with her referring physicia n and we can discuss possible options. Approximately 10% of breast cancers are not detected with mammography. A negative mammographic report should not delay biopsy if a clinically suggestive mass is present. Krysta Brunner M.D. ay/:01/07/2017 12:41:29 Talent Specialist: Fatemeh Huber RT(R)(M), [facility] letter sent: Abnormal 4/5 BI-RADS Code: ACR BI-RADS Category 4B: Intermediate Suspicion For Malignancy
== END ==
LOC: C.MAMM 09:46
PROVIDERS: ATTEND Family Medicine
DX: R92.0 Mammographic microcalcification found on diagnostic imaging of breast (principal)

== ENCOUNTER → 2017-01-07 | Outpatient (CLI) | payer OTHER ==
[2017-01-07 11:40] LABS: BASO % 0.5 %; BASO ABS # 0.03 K/uL (0-0.2); COMPLETE YES; HEMATOCRIT 37.7 % (37-47); IG% 0.3 %; LYMPH % 47.4 %; LYMPH ABS # 3.06 K/uL (1.2-3.4); MEAN CELL VOLUME 92.6 fL (80-100); MEAN CORPUSCULAR HEMOGLOBIN 31.2 pg (25-34); MEAN CORPUSCULAR HGB CONC 33.7 g/dl (32-36); MEAN PLATELET VOLUME 11.4 fL (7.4-10.4); MONO % 7.8 %; PLATELET COUNT 210 K/uL (130-400); RED BLOOD COUNT 4.07 M/uL (4.2-5.4); WHITE BLOOD COUNT 6.45 K/uL (4.8-10.8)
== END ==
LOC: C.LABUPBEA 10:25
PROVIDERS: ATTEND Nurse Practitioner Family
DX: F25.9 Schizoaffective disorder, unspecified (principal); G40.909 Epilepsy, unspecified, not intractable, without status epilepticus

== ENCOUNTER → 2017-01-14 | Outpatient (CLI) | payer OTHER ==
[2017-01-14 10:33] LABS: BASO % 0.4 %; BASO ABS # 0.03 K/uL (0-0.2); COMPLETE YES; EOS % 2.2 %; HEMATOCRIT 37.9 % (37-47); IG% 0.1 %; LYMPH % 48.3 %; LYMPH ABS # 3.45 K/uL (1.2-3.4); MEAN CELL VOLUME 91.3 fL (80-100); MEAN CORPUSCULAR HEMOGLOBIN 30.8 pg (25-34); MEAN CORPUSCULAR HGB CONC 33.8 g/dl (32-36); MEAN PLATELET VOLUME 11.3 fL (7.4-10.4); MONO % 9.2 %; NEUT % 39.8 %; PLATELET COUNT 213 K/uL (130-400); RED BLOOD COUNT 4.15 M/uL (4.2-5.4); WHITE BLOOD COUNT 7.14 K/uL (4.8-10.8)
== END ==
LOC: C.LABUPBEA 09:15
PROVIDERS: ATTEND Nurse Practitioner Family
DX: F25.9 Schizoaffective disorder, unspecified (principal)

== ENCOUNTER → 2017-01-21 | Outpatient (CLI) | payer OTHER ==
[2017-01-21 10:33] LABS: BASO % 0.5 %; BASO ABS # 0.04 K/uL (0-0.2); COMPLETE YES; HEMATOCRIT 42.3 % (37-47); IG% 0.1 %; LYMPH % 47.1 %; LYMPH ABS # 3.73 K/uL (1.2-3.4); MEAN CELL VOLUME 91.4 fL (80-100); MEAN CORPUSCULAR HEMOGLOBIN 29.6 pg (25-34); MEAN CORPUSCULAR HGB CONC 32.4 g/dl (32-36); MEAN PLATELET VOLUME 11.8 fL (7.4-10.4); MONO % 7.6 %; NEUT % 42.7 %; PLATELET COUNT 243 K/uL (130-400); RED BLOOD COUNT 4.63 M/uL (4.2-5.4); WHITE BLOOD COUNT 7.92 K/uL (4.8-10.8)
== END ==
LOC: C.LABUPBEA 10:07
PROVIDERS: ATTEND Nurse Practitioner Family
DX: F25.9 Schizoaffective disorder, unspecified (principal)

== ENCOUNTER → 2017-01-28 | Outpatient (CLI) | payer OTHER ==
[2017-01-28 10:51] LABS: HEMATOCRIT 37.5 % (37-47); MEAN CELL VOLUME 90.1 fL (80-100); MEAN CORPUSCULAR HGB CONC 34.4 g/dl (32-36); MEAN PLATELET VOLUME 11.2 fL (7.4-10.4); PLATELET COUNT 223 K/uL (130-400); RED BLOOD COUNT 4.16 M/uL (4.2-5.4); WHITE BLOOD COUNT 7.51 K/uL (4.8-10.8)
[2017-01-28 11:59] LABS: COMPLETE YES; ECHINOCYTES 1+; EOSINOPHIL % 1.7 %; LARGE GRANULAR LYMPH ABSOLUTE 1.11 K/uL; LARGE GRANULAR LYMPHOCYTE % 14.8 %; LYMPHOCYTE % 45.3 %; NEUTROPHILS % 33.9 %; VACUOLIZATION 3+
== END | disposition home or self-care (01) ==
LOC: C.LABUPBEA 09:38
PROVIDERS: ATTEND Nurse Practitioner Family
DX: F25.9 Schizoaffective disorder, unspecified (principal)

== ENCOUNTER → 2017-02-04 | Outpatient (CLI) | payer OTHER ==
[2017-02-04 10:09] LABS: HEMATOCRIT 39.3 % (37-47); MEAN CORPUSCULAR HGB CONC 34.1 g/dl (32-36); MEAN PLATELET VOLUME 12.2 fL (7.4-10.4); PLATELET COUNT 209 K/uL (130-400); RED BLOOD COUNT 4.32 M/uL (4.2-5.4); WHITE BLOOD COUNT 6.85 K/uL (4.8-10.8)
[2017-02-04 12:09] LABS: COMPLETE YES; EOSINOPHIL % 0.9 %; LARGE GRANULAR LYMPH ABSOLUTE 1.08 K/uL; LARGE GRANULAR LYMPHOCYTE % 15.7 %; LYMPH ABS # 3.03 K/uL (1.2-3.4); LYMPHOCYTE % 44.3 %; VACUOLIZATION 1+
== END | disposition home or self-care (01) ==
LOC: C.LABUPBEA 09:17
PROVIDERS: ATTEND Nurse Practitioner Family
DX: F25.9 Schizoaffective disorder, unspecified (principal)

== ENCOUNTER → 2017-02-11 | Outpatient (CLI) | payer OTHER ==
[2017-02-11 10:34] LABS: BASO % 0.3 %; BASO ABS # 0.02 K/uL (0-0.2); COMPLETE YES; EOS % 2.3 %; HEMATOCRIT 38.1 % (37-47); IG% 0.3 %; LYMPH % 49.8 %; LYMPH ABS # 3.29 K/uL (1.2-3.4); MEAN CELL VOLUME 91.8 fL (80-100); MEAN CORPUSCULAR HEMOGLOBIN 30.4 pg (25-34); MEAN CORPUSCULAR HGB CONC 33.1 g/dl (32-36); MEAN PLATELET VOLUME 11.5 fL (7.4-10.4); MONO % 8.8 %; NEUT % 38.5 %; PLATELET COUNT 228 K/uL (130-400); RED BLOOD COUNT 4.15 M/uL (4.2-5.4); WHITE BLOOD COUNT 6.61 K/uL (4.8-10.8)
[2017-02-11 10:53] LABS: ALT/SGPT 48 U/L (12-78); BLOOD UREA NITROGEN 20 mg/dl (7-18); BUN/CREATININE RATIO 30.6 (10-20); CALCIUM 8.9 mg/dl (8.5-10.1); CARBON DIOXIDE 25 mmol/L (21-32); CHLORIDE 105 mmol/L (98-107); CHOLESTEROL 216 mg/dl (0-200); CREATININE 0.64 mg/dl (0.60-1.20); GLUCOSE 120 mg/dl (70-99); SODIUM 139 mmol/L (136-145)
[2017-02-11 11:03] LABS: ALB/GLOB RATIO 0.9 (0.9-2); ALKALINE PHOSPHATASE 147 U/L (45-117); AST/SGOT 24 U/L (15-37); HDL CHOLESTEROL 43 mg/dl; LDL CHOLESTEROL CALCULATED 113 mg/dl; TRIGLYCERIDES 301 mg/dl (0-150); VERY LOW DENSITY LIPOPROT CALC 60 mg/dl
== END ==
LOC: C.LABUPBEA 10:03
PROVIDERS: ATTEND Nurse Practitioner Family
DX: R73.9 Hyperglycemia, unspecified (principal); F25.9 Schizoaffective disorder, unspecified; I10 Essential (primary) hypertension; E55.9 Vitamin D deficiency, unspecified; E78.5 Hyperlipidemia, unspecified

== ENCOUNTER → 2017-02-18 | Outpatient (CLI) | payer OTHER ==
[2017-02-18 08:33] LABS: HEMATOCRIT 39.1 % (37-47); MEAN CELL VOLUME 90.5 fL (80-100); MEAN CORPUSCULAR HEMOGLOBIN 30.8 pg (25-34); MEAN PLATELET VOLUME 11.7 fL (7.4-10.4); PLATELET COUNT 211 K/uL (130-400); RED BLOOD COUNT 4.32 M/uL (4.2-5.4)
[2017-02-18 10:07] LABS: BASO ABS # 0.13 K/uL (0-0.2); BASOPHIL % 1.7 %; COMPLETE YES; EOSINOPHIL % 1.7 %; LYMPH ABS # 2.81 K/uL (1.2-3.4); LYMPHOCYTE % 37.4 %; NEUTROPHILS % 35.7 %; VACUOLIZATION 1+; VARIANT LYM ABS # 1.24 K/uL; VARIANT LYMPHOCYTE % 16.5 %
== END ==
LOC: C.LABUPBEA 08:06
PROVIDERS: ATTEND Nurse Practitioner Family
DX: F25.9 Schizoaffective disorder, unspecified (principal)

== ENCOUNTER → 2017-02-25 | Outpatient (CLI) | payer OTHER ==
[2017-02-25 09:25] LABS: BASO % 0.4 %; BASO ABS # 0.03 K/uL (0-0.2); COMPLETE YES; EOS % 2.4 %; HEMATOCRIT 39.4 % (37-47); IG% 0.3 %; LYMPH % 44.7 %; LYMPH ABS # 3.29 K/uL (1.2-3.4); MEAN CELL VOLUME 92.1 fL (80-100); MEAN CORPUSCULAR HEMOGLOBIN 29.9 pg (25-34); MEAN CORPUSCULAR HGB CONC 32.5 g/dl (32-36); MEAN PLATELET VOLUME 11.8 fL (7.4-10.4); MONO % 7.9 %; NEUT % 44.3 %; PLATELET COUNT 214 K/uL (130-400); RED BLOOD COUNT 4.28 M/uL (4.2-5.4); WHITE BLOOD COUNT 7.36 K/uL (4.8-10.8)
== END ==
LOC: C.LABUPBEA 09:02
PROVIDERS: ATTEND Nurse Practitioner Family
DX: F25.9 Schizoaffective disorder, unspecified (principal)

== ENCOUNTER → 2017-03-04 | Outpatient (CLI) | payer OTHER ==
[2017-03-04 09:13] LABS: BASO % 0.4 %; BASO ABS # 0.03 K/uL (0-0.2); COMPLETE YES; EOS % 1.8 %; HEMATOCRIT 37.5 % (37-47); IG% 0.2 %; LYMPH % 45.7 %; LYMPH ABS # 3.74 K/uL (1.2-3.4); MEAN CELL VOLUME 91.5 fL (80-100); MEAN CORPUSCULAR HEMOGLOBIN 31.5 pg (25-34); MEAN CORPUSCULAR HGB CONC 34.4 g/dl (32-36); MEAN PLATELET VOLUME 11.5 fL (7.4-10.4); MONO % 8.8 %; NEUT % 43.1 %; PLATELET COUNT 232 K/uL (130-400); WHITE BLOOD COUNT 8.19 K/uL (4.8-10.8)
== END ==
LOC: C.LABUPBEA 08:48
PROVIDERS: ATTEND Nurse Practitioner Family
DX: F25.9 Schizoaffective disorder, unspecified (principal)

== ENCOUNTER → 2017-03-10 | Outpatient (CLI) | payer OTHER | LOC: C.LABUPBEA 09:02 | PROVIDERS: ATTEND Nurse Practitioner Family | DX: G40.909 Epilepsy, unspecified, not intractable, without status epilepticus (principal) ==

== ENCOUNTER → 2017-03-11 | Outpatient (CLI) | payer OTHER ==
[2017-03-11 10:07] LABS: HEMATOCRIT 39.4 % (37-47); MEAN CELL VOLUME 90.2 fL (80-100); MEAN CORPUSCULAR HGB CONC 33.2 g/dl (32-36); MEAN PLATELET VOLUME 11.8 fL (7.4-10.4); PLATELET COUNT 231 K/uL (130-400); RED BLOOD COUNT 4.37 M/uL (4.2-5.4); WHITE BLOOD COUNT 6.85 K/uL (4.8-10.8)
[2017-03-11 11:26] LABS: BASO % 0.4 %; BASO ABS # 0.03 K/uL (0-0.2); COMPLETE YES; EOS % 1.9 %; IG% 0.3 %; LYMPH % 51.1 %; NEUT % 38.3 %
== END ==
LOC: C.LABUPBEA 09:41
PROVIDERS: ATTEND Nurse Practitioner Family
DX: F25.9 Schizoaffective disorder, unspecified (principal)

== ENCOUNTER → 2017-03-18 | Outpatient (CLI) | payer OTHER ==
[2017-03-18 08:29] LABS: BASO % 0.5 %; BASO ABS # 0.04 K/uL (0-0.2); COMPLETE YES; EOS % 1.9 %; HEMATOCRIT 35.3 % (37-47); IG% 0.3 %; LYMPH % 40.2 %; LYMPH ABS # 2.99 K/uL (1.2-3.4); MEAN CELL VOLUME 90.7 fL (80-100); MEAN CORPUSCULAR HEMOGLOBIN 31.4 pg (25-34); MEAN CORPUSCULAR HGB CONC 34.6 g/dl (32-36); MEAN PLATELET VOLUME 11.4 fL (7.4-10.4); MONO % 9.6 %; NEUT % 47.5 %; PLATELET COUNT 205 K/uL (130-400); RED BLOOD COUNT 3.89 M/uL (4.2-5.4); WHITE BLOOD COUNT 7.43 K/uL (4.8-10.8)
== END ==
LOC: C.LABUPBEA 08:03
PROVIDERS: ATTEND Nurse Practitioner Family
DX: F25.9 Schizoaffective disorder, unspecified (principal)

== ENCOUNTER → 2017-03-25 | Outpatient (CLI) | payer OTHER ==
[2017-03-25 11:07] LABS: BASO % 0.5 %; BASO ABS # 0.04 K/uL (0-0.2); COMPLETE YES; EOS % 2.3 %; HEMATOCRIT 37.8 % (37-47); IG% 0.1 %; LYMPH % 41.8 %; LYMPH ABS # 3.25 K/uL (1.2-3.4); MEAN CELL VOLUME 91.1 fL (80-100); MEAN CORPUSCULAR HEMOGLOBIN 30.4 pg (25-34); MEAN CORPUSCULAR HGB CONC 33.3 g/dl (32-36); MEAN PLATELET VOLUME 11.4 fL (7.4-10.4); MONO % 9.1 %; NEUT % 46.2 %; PLATELET COUNT 214 K/uL (130-400); RED BLOOD COUNT 4.15 M/uL (4.2-5.4); WHITE BLOOD COUNT 7.78 K/uL (4.8-10.8)
== END ==
LOC: C.LABUPBEA 10:32
PROVIDERS: ATTEND Nurse Practitioner Family
DX: F25.9 Schizoaffective disorder, unspecified (principal)

== ENCOUNTER → 2017-04-01 | Outpatient (CLI) | payer OTHER ==
[2017-04-01 10:41] LABS: BASO % 0.6 %; BASO ABS # 0.04 K/uL (0-0.2); COMPLETE YES; EOS % 2.2 %; HEMATOCRIT 37.4 % (37-47); IG% 0.1 %; LYMPH % 46.4 %; LYMPH ABS # 3.36 K/uL (1.2-3.4); MEAN CELL VOLUME 91.7 fL (80-100); MEAN CORPUSCULAR HEMOGLOBIN 30.4 pg (25-34); MEAN CORPUSCULAR HGB CONC 33.2 g/dl (32-36); MEAN PLATELET VOLUME 11.6 fL (7.4-10.4); NEUT % 42.7 %; PLATELET COUNT 224 K/uL (130-400); RED BLOOD COUNT 4.08 M/uL (4.2-5.4); WHITE BLOOD COUNT 7.24 K/uL (4.8-10.8)
== END ==
LOC: C.LABUPBEA 09:54
PROVIDERS: ATTEND Nurse Practitioner Family
DX: F25.9 Schizoaffective disorder, unspecified (principal)

== ENCOUNTER → 2017-04-22 | Outpatient (CLI) | payer OTHER ==
[~2017-04-22] MED LIST changes: -CARB-157 PO; +CARB10TA4 PO
[2017-04-22 09:54] LABS: BASO % 0.3 %; BASO ABS # 0.02 K/uL (0-0.2); COMPLETE YES; EOS % 2.4 %; HEMATOCRIT 38.2 % (37-47); IG% 0.2 %; LYMPH % 47.9 %; LYMPH ABS # 2.94 K/uL (1.2-3.4); MEAN CELL VOLUME 91.4 fL (80-100); MEAN CORPUSCULAR HEMOGLOBIN 30.9 pg (25-34); MEAN CORPUSCULAR HGB CONC 33.8 g/dl (32-36); MEAN PLATELET VOLUME 11.3 fL (7.4-10.4); MONO % 10.1 %; NEUT % 39.1 %; PLATELET COUNT 224 K/uL (130-400); RED BLOOD COUNT 4.18 M/uL (4.2-5.4); WHITE BLOOD COUNT 6.14 K/uL (4.8-10.8)
== END ==
LOC: C.LABUPBEA 09:23
PROVIDERS: ATTEND Nurse Practitioner Family
DX: F25.9 Schizoaffective disorder, unspecified (principal)

== ENCOUNTER → 2017-04-29 | Outpatient (CLI) | payer OTHER ==
[2017-04-29 09:59] LABS: BASO % 0.5 %; BASO ABS # 0.04 K/uL (0-0.2); COMPLETE YES; HEMATOCRIT 39.5 % (37-47); IG% 0.1 %; LYMPH % 41.5 %; LYMPH ABS # 3.54 K/uL (1.2-3.4); MEAN CELL VOLUME 92.3 fL (80-100); MEAN CORPUSCULAR HEMOGLOBIN 30.8 pg (25-34); MEAN CORPUSCULAR HGB CONC 33.4 g/dl (32-36); MEAN PLATELET VOLUME 11.5 fL (7.4-10.4); MONO % 7.4 %; NEUT % 48.5 %; PLATELET COUNT 217 K/uL (130-400); RED BLOOD COUNT 4.28 M/uL (4.2-5.4); WHITE BLOOD COUNT 8.52 K/uL (4.8-10.8)
== END ==
LOC: C.LABUPBEA 08:53
PROVIDERS: ATTEND Nurse Practitioner Family
DX: F25.9 Schizoaffective disorder, unspecified (principal)

== ENCOUNTER → 2017-05-06 | Outpatient (CLI) | payer OTHER ==
[2017-05-06 09:24] LABS: MEAN CORPUSCULAR HGB CONC 32.6 g/dl (32-36)
[2017-05-06 09:33] LABS: MEAN PLATELET VOLUME 11.5 fL (7.4-10.4); PLATELET COUNT 209 K/uL (130-400); RED BLOOD COUNT 4.24 M/uL (4.2-5.4); WHITE BLOOD COUNT 6.88 K/uL (4.8-10.8)
[2017-05-06 09:35] LABS: BASO % 0.4 %; BASO ABS # 0.03 K/uL (0-0.2); COMPLETE YES; EOS % 3.5 %; IG% 0.1 %; LYMPH % 32.8 %; LYMPH ABS # 2.26 K/uL (1.2-3.4); MONO % 9.9 %; NEUT % 53.3 %; PLT ESTIMATE NORMAL; TOXIC GRANULATION 1+
== END ==
LOC: C.LABUPBEA 08:23
PROVIDERS: ATTEND Nurse Practitioner Family
DX: F25.9 Schizoaffective disorder, unspecified (principal)

== ENCOUNTER → 2017-05-13 | Outpatient (CLI) | payer OTHER ==
[2017-05-13 08:57] LABS: BASO % 0.3 %; BASO ABS # 0.03 K/uL (0-0.2); COMPLETE YES; EOS % 2.1 %; IG% 0.2 %; LYMPH ABS # 1.46 K/uL (1.2-3.4); MEAN CORPUSCULAR HGB CONC 33.8 g/dl (32-36); MEAN PLATELET VOLUME 11.3 fL (7.4-10.4); MONO % 6.6 %; NEUT % 73.8 %; PLATELET COUNT 214 K/uL (130-400); RED BLOOD COUNT 4.35 M/uL (4.2-5.4)
== END | disposition home or self-care (01) ==
LOC: C.LABUPBEA 08:44
PROVIDERS: ATTEND Nurse Practitioner Family
DX: F25.9 Schizoaffective disorder, unspecified (principal); G40.909 Epilepsy, unspecified, not intractable, without status epilepticus; Z79.899 Other long term (current) drug therapy

== ENCOUNTER → 2017-05-20 | Outpatient (CLI) | payer OTHER ==
[~2017-05-20] MED LIST changes: -CARB10TA4 PO; +CARB10TA5 PO
[2017-05-20 08:38] LABS: BASO % 0.5 %; BASO ABS # 0.04 K/uL (0-0.2); COMPLETE YES; EOS % 2.9 %; HEMATOCRIT 38.5 % (37-47); IG% 0.4 %; LYMPH % 41.6 %; MEAN CELL VOLUME 91.2 fL (80-100); MEAN CORPUSCULAR HEMOGLOBIN 30.8 pg (25-34); MEAN CORPUSCULAR HGB CONC 33.8 g/dl (32-36); MEAN PLATELET VOLUME 11.4 fL (7.4-10.4); MONO % 9.1 %; NEUT % 45.5 %; PLATELET COUNT 236 K/uL (130-400); RED BLOOD COUNT 4.22 M/uL (4.2-5.4); WHITE BLOOD COUNT 7.46 K/uL (4.8-10.8)
== END ==
LOC: C.LABUPBEA 08:12
PROVIDERS: ATTEND Nurse Practitioner Family
DX: F25.9 Schizoaffective disorder, unspecified (principal)

== ENCOUNTER → 2017-05-27 | Outpatient (CLI) | payer OTHER ==
[2017-05-27 09:13] LABS: BASO % 0.4 %; BASO ABS # 0.03 K/uL (0-0.2); COMPLETE YES; EOS % 2.7 %; IG% 0.1 %; LYMPH % 47.5 %; LYMPH ABS # 3.57 K/uL (1.2-3.4); MEAN CELL VOLUME 90.7 fL (80-100); MEAN CORPUSCULAR HEMOGLOBIN 30.8 pg (25-34); MEAN CORPUSCULAR HGB CONC 33.9 g/dl (32-36); MEAN PLATELET VOLUME 11.3 fL (7.4-10.4); MONO % 8.8 %; NEUT % 40.5 %; PLATELET COUNT 222 K/uL (130-400); RED BLOOD COUNT 4.19 M/uL (4.2-5.4); WHITE BLOOD COUNT 7.52 K/uL (4.8-10.8)
== END ==
LOC: C.LABUPBEA 08:49
PROVIDERS: ATTEND Nurse Practitioner Family
DX: F25.9 Schizoaffective disorder, unspecified (principal)

== ENCOUNTER → 2017-06-03 | Outpatient (CLI) | payer OTHER ==
[2017-06-03 09:45] LABS: BASO % 0.5 %; BASO ABS # 0.04 K/uL (0-0.2); COMPLETE YES; EOS % 3.2 %; HEMATOCRIT 40.7 % (37-47); IG% 0.3 %; LYMPH % 48.7 %; LYMPH ABS # 3.86 K/uL (1.2-3.4); MEAN CELL VOLUME 91.9 fL (80-100); MEAN CORPUSCULAR HEMOGLOBIN 31.2 pg (25-34); MEAN CORPUSCULAR HGB CONC 33.9 g/dl (32-36); MEAN PLATELET VOLUME 11.9 fL (7.4-10.4); MONO % 7.7 %; NEUT % 39.6 %; PLATELET COUNT 230 K/uL (130-400); RED BLOOD COUNT 4.43 M/uL (4.2-5.4); WHITE BLOOD COUNT 7.93 K/uL (4.8-10.8)
== END ==
LOC: C.LABUPBEA 08:52
PROVIDERS: ATTEND Nurse Practitioner Family
DX: F25.9 Schizoaffective disorder, unspecified (principal)

== ENCOUNTER → 2017-06-10 | Outpatient (CLI) | payer OTHER ==
[2017-06-10 08:12] LABS: BASO % 0.8 %; BASO ABS # 0.05 K/uL (0-0.2); EOS % 2.7 %; EOS ABS # 0.18 K/uL (0-0.5); HEMATOCRIT 40.1 % (37-47); HEMOGLOBIN 13.5 g/dL (12.0-16.0); IG# 0.01 K/uL (0.00-0.02); LYMPH % 47.2 %; LYMPH ABS # 3.11 K/uL (1.2-3.4); MEAN CELL VOLUME 90.7 fL (80-100); MEAN CORPUSCULAR HEMOGLOBIN 30.5 pg (25-34); MEAN CORPUSCULAR HGB CONC 33.7 g/dl (32-36); MEAN PLATELET VOLUME 12.3 fL (7.4-10.4); MONO % 7.4 %; MONO ABS # 0.49 K/uL (0.11-0.59); NEUT % 41.7 %; NEUT ABS # 2.75 K/uL (1.4-6.5); PLATELET COUNT 184 K/uL (130-400); RED CELL DISTRIBUTION WIDTH CV 12.1 % (11.5-14.5); RED CELL DISTRIBUTION WIDTH SD 40.4 fL (36.4-46.3); WHITE BLOOD COUNT 6.59 K/uL (4.8-10.8)
== END ==
LOC: C.LABUPBEA 07:33
PROVIDERS: ATTEND Nurse Practitioner Family
DX: F25.9 Schizoaffective disorder, unspecified (principal)

== ENCOUNTER → 2017-06-11 | Outpatient (CLI) | payer OTHER ==
--- NOTE | 2017-06-11 14:02 | Discharge Instructions ---
Discharge Instructions Procedure Procedure Date: Jun 11, 2017. Reason for visit: Left Microcalcifications. Discharge Discharge Date: Jun 11, 2017. Discharge Diagnosis: status post breast biopsy Instructions Activity Recommendations: Additional Limitations (see below) Return to School/Work: no limitations Recommended Home Diet: No Limitations Provider Instructions: ACTIVITY RECOMMENDATIONS: * No lifting, pushing, pulling or exercising the affected side for three days. RETURN TO SCHOOL/WORK: * You may return to work/school after the procedure, but do not perform any strenuous activities for 24 to 48 hours. MEDICATIONS: * Tylenol (two 325 mg) every four to six hours if needed for mild pain (if not allergic to Tylenol). DIET: * Resume previous diet. SPECIAL CARE INSTRUCTIONS: * Keep biopsy site dry for 24 hours. May shower after 24 hours, but do not soak (bathe) incision. * May remove Tegaderm (plastic patch) tomorrow AFTER showering. * Leave the steri-strips on for one week. Allow the steri-strips to fall off by themselves. If not off after one week, you may remove them. You may place a Bandaid crosswise over the strips, if desired. * Apply ice 10 minutes on and 10 minutes off as needed. * Wear a bra at bedtime to sleep more comfortably for 2-3 days. * Your referring physician should have the results after approximately 5 to 7 business days. * Call for unusual bleeding, fever, drainage, etc or if you have any questions call during normal business hours or after hours call Dr Ballard, . FOLLOW UP VISIT: Follow-up with Referring Physician as scheduled. Allergies Coded Allergies: Metformin (Unverified Allergy, Mild, NAUSEA, 07/01/14) Ciprofloxacin (Unverified Allergy, Unknown, unknown, 07/01/14) Bibi Caicedo Recommendations: Call your doctor if: * Temperature above 101 degrees * Pain not relieved by pain medicine ordered * There is increased drainage or redness from any incision * You have any unanswered questions or concerns. Your Doctors Instructions noted above were prepared by provider Kaylah Ballard. Patient Signature Section: Patient Instructions Signature Page Bobbi Roberts Patient (or Guardian) Signature/Date: I have read and understand the instructions given to me by my caregivers. Caregiver/RN/Doctor Signature/Date: The above-named patient and/or guardian has received patient instructions on this date. + Original Patient Signature Page (only) stays with chart. Please make copy for patient.
--- NOTE | 2017-06-11 14:56 | MAMMOGRAPHY REPORT ---
STEREOTACTIC GUIDED BIOPSY LEFT BREAST: 06/11/2017 CLINICAL HISTORY: Indeterminate calcifications in the left upper outer quadrant. PATIENT CONSENT: The procedure, risks, benefits, and alternatives of stereotactic biopsy with clip pl acement were discussed with the patient's power of employee benefits attorney Fabiana Harrison over the telephone by Dr. Brunner on 05/08/2017, and verbal consent was obtained. A timeout was performed immediately prior t o the procedure. PROCEDURE DESCRIPTION: With stereotactic guidance, aseptic technique, and lidocaine as a local anesth etic (1% lidocaine to anesthetize the skin and 1% lidocaine with epinephrine to anesthetize the deepe r tissues), the calcifications of concern in the left upper outer quadrant were sampled multiple time s with a 9-gauge vacuum-assisted biopsy needle (TeraDiode). The path of approach was lateral. The specimen radiograph demonstrates calcifications to be present in the samples. A metallic marker cli p was placed at the biopsy site. This was confirmed on postprocedure mammograms. Direct pressure wa s applied at the biopsy site and hemostasis was readily achieved. The patient tolerated the procedur e without complication. She was given wound care instructions. COMPARISON: Comparison is made to exams dated: 01/07/2017 mammogram, 12/25/2016 mammogram, 10/15/2013 karthik mogram, 08/11/2013 mammogram, 07/27/2013 mammogram, and 07/24/2012 mammogram - [facility]. IMPRESSION: STEREOTACTIC GUIDED BIOPSY Stereotactic biopsy of indeterminate calcifications in the left upper outer quadrant, with clip place ment. The patient will receive pathology results from her referring provider. Kaylah Ballard M.D. ah/:06/11/2017 14:13:50 Parts Interpreter: Lucy Canada, [facility]
--- NOTE | 2017-06-11 15:01 | MAMMOGRAPHY REPORT ---
UNILATERAL LEFT DIGITAL DIAGNOSTIC MAMMOGRAM: 06/11/2017 CLINICAL HISTORY: Status post left breast stereotactic biopsy. TECHNIQUE: Postprocedural left CC and ML views were obtained. COMPARISON: Comparison is made to exams dated: 01/07/2017 mammogram, 12/25/2016 mammogram, 03/03/2014 ma mmogram, 08/11/2013 mammogram, and 07/24/2012 mammogram - [facility]. BREAST COMPOSITION: There are scattered areas of fibroglandular density in the left breast. FINDINGS: Note that the left ML view is limited due to motion artifact. A new biopsy marker clip is seen at the site of the biopsied calcifications in the left upper outer quadrant. There is a probab le small postbiopsy hematoma measuring 2.3 cm at the biopsy site. IMPRESSION: POST PROCEDURE IMAGING FOR MARKER PLACEMENT New biopsy marker clip status post left breast stereotactic biopsy. Pathology results are pending. Approximately 10% of breast cancers are not detected with mammography. A negative mammographic report should not delay biopsy if a clinically suggestive mass is present. Kaylah Ballard M.D. ah/:06/11/2017 14:24:59 Underwriter: Lucy Canada [facility] BI-RADS Code: Post Procedure Imaging For Marker Placement
== END ==
LOC: C.MAMM 13:11
PROVIDERS: ATTEND Nurse Practitioner Family
DX: R92.0 Mammographic microcalcification found on diagnostic imaging of breast (principal); D05.12 Intraductal carcinoma in situ of left breast

== ENCOUNTER → 2017-06-17 | Outpatient (CLI) | payer OTHER ==
[2017-06-17 08:54] LABS: HEMATOCRIT 37.9 % (37-47); HEMOGLOBIN 12.8 g/dL (12.0-16.0); MEAN CELL VOLUME 91.3 fL (80-100); MEAN CORPUSCULAR HEMOGLOBIN 30.8 pg (25-34); MEAN CORPUSCULAR HGB CONC 33.8 g/dl (32-36); MEAN PLATELET VOLUME 11.9 fL (7.4-10.4); PLATELET COUNT 223 K/uL (130-400); RED CELL DISTRIBUTION WIDTH CV 12.4 % (11.5-14.5); RED CELL DISTRIBUTION WIDTH SD 41.6 fL (36.4-46.3); WHITE BLOOD COUNT 6.68 K/uL (4.8-10.8)
== END ==
LOC: C.LABUPBEA 08:38
PROVIDERS: ATTEND Nurse Practitioner Family
DX: F25.9 Schizoaffective disorder, unspecified (principal)

== ENCOUNTER → 2017-06-24 | Outpatient (CLI) | payer OTHER ==
[2017-06-24 09:34] LABS: MEAN CORPUSCULAR HGB CONC 33.6 g/dl (32-36); MEAN PLATELET VOLUME 11.9 fL (7.4-10.4); PLATELET COUNT 243 K/uL (130-400)
[2017-06-24 10:32] LABS: HEMATOCRIT 39.3 % (37-47); HEMOGLOBIN 13.2 g/dL (12.0-16.0); MEAN CELL VOLUME 90.8 fL (80-100); MEAN CORPUSCULAR HEMOGLOBIN 30.5 pg (25-34); RED CELL DISTRIBUTION WIDTH CV 12.1 % (11.5-14.5); RED CELL DISTRIBUTION WIDTH SD 40.3 fL (36.4-46.3); WHITE BLOOD COUNT 7.82 K/uL (4.8-10.8)
== END ==
LOC: C.LABUPHEI 07:54
PROVIDERS: ATTEND Nurse Practitioner Family
DX: F25.9 Schizoaffective disorder, unspecified (principal)

== ENCOUNTER → 2017-07-01 | Outpatient (CLI) | payer OTHER ==
[2017-07-01 09:17] LABS: MEAN CORPUSCULAR HGB CONC 33.7 g/dl (32-36); MEAN PLATELET VOLUME 11.7 fL (7.4-10.4); PLATELET COUNT 218 K/uL (130-400)
[2017-07-01 10:16] LABS: BASO % 0.5 %; BASO ABS # 0.03 K/uL (0-0.2); EOS % 2.3 %; EOS ABS # 0.15 K/uL (0-0.5); HEMATOCRIT 38.3 % (37-47); HEMOGLOBIN 12.9 g/dL (12.0-16.0); IG# 0.01 K/uL (0.00-0.02); LYMPH % 44.4 %; LYMPH ABS # 2.88 K/uL (1.2-3.4); MEAN CELL VOLUME 90.3 fL (80-100); MEAN CORPUSCULAR HEMOGLOBIN 30.4 pg (25-34); MONO % 8.8 %; MONO ABS # 0.57 K/uL (0.11-0.59); NEUT % 43.8 %; NEUT ABS # 2.84 K/uL (1.4-6.5); RED CELL DISTRIBUTION WIDTH CV 12.2 % (11.5-14.5); RED CELL DISTRIBUTION WIDTH SD 39.9 fL (36.4-46.3); WHITE BLOOD COUNT 6.48 K/uL (4.8-10.8)
== END ==
LOC: C.LABUPBEA 08:52
PROVIDERS: ATTEND Nurse Practitioner Family
DX: F25.9 Schizoaffective disorder, unspecified (principal)

== ENCOUNTER → 2017-07-08 | Outpatient (CLI) | payer OTHER ==
[2017-07-08 09:23] LABS: BASO % 0.4 %; BASO ABS # 0.03 K/uL (0-0.2); EOS % 1.6 %; EOS ABS # 0.13 K/uL (0-0.5); HEMOGLOBIN 12.8 g/dL (12.0-16.0); IG# 0.01 K/uL (0.00-0.02); LYMPH % 48.1 %; MEAN CELL VOLUME 92.2 fL (80-100); MEAN CORPUSCULAR HEMOGLOBIN 31.1 pg (25-34); MEAN CORPUSCULAR HGB CONC 33.7 g/dl (32-36); MEAN PLATELET VOLUME 11.2 fL (7.4-10.4); MONO ABS # 0.71 K/uL (0.11-0.59); NEUT % 40.8 %; NEUT ABS # 3.22 K/uL (1.4-6.5); PLATELET COUNT 232 K/uL (130-400); RED CELL DISTRIBUTION WIDTH CV 12.4 % (11.5-14.5); RED CELL DISTRIBUTION WIDTH SD 41.7 fL (36.4-46.3)
== END ==
LOC: C.LABUPBEA 08:41
PROVIDERS: ATTEND Nurse Practitioner Family
DX: F25.9 Schizoaffective disorder, unspecified (principal)

== ENCOUNTER → 2017-07-15 | Outpatient (CLI) | payer OTHER ==
[2017-07-15 08:41] LABS: BASO % 0.6 %; BASO ABS # 0.04 K/uL (0-0.2); EOS % 2.6 %; EOS ABS # 0.18 K/uL (0-0.5); HEMATOCRIT 37.9 % (37-47); HEMOGLOBIN 12.7 g/dL (12.0-16.0); IG# 0.02 K/uL (0.00-0.02); LYMPH ABS # 3.35 K/uL (1.2-3.4); MEAN CORPUSCULAR HEMOGLOBIN 30.8 pg (25-34); MEAN CORPUSCULAR HGB CONC 33.5 g/dl (32-36); MEAN PLATELET VOLUME 11.7 fL (7.4-10.4); MONO % 8.7 %; MONO ABS # 0.61 K/uL (0.11-0.59); NEUT % 39.8 %; NEUT ABS # 2.78 K/uL (1.4-6.5); PLATELET COUNT 223 K/uL (130-400); RED CELL DISTRIBUTION WIDTH CV 12.3 % (11.5-14.5); RED CELL DISTRIBUTION WIDTH SD 41.8 fL (36.4-46.3); WHITE BLOOD COUNT 6.98 K/uL (4.8-10.8)
== END ==
LOC: C.LABUPBEA 08:16
PROVIDERS: ATTEND Nurse Practitioner Family
DX: F25.9 Schizoaffective disorder, unspecified (principal)

== ENCOUNTER → 2017-07-22 | Outpatient (CLI) | payer OTHER ==
[2017-07-22 08:58] LABS: BASO % 0.5 %; BASO ABS # 0.04 K/uL (0-0.2); EOS % 1.9 %; EOS ABS # 0.17 K/uL (0-0.5); HEMATOCRIT 39.7 % (37-47); HEMOGLOBIN 13.6 g/dL (12.0-16.0); IG# 0.02 K/uL (0.00-0.02); LYMPH % 41.5 %; LYMPH ABS # 3.67 K/uL (1.2-3.4); MEAN CELL VOLUME 90.6 fL (80-100); MEAN CORPUSCULAR HEMOGLOBIN 31.1 pg (25-34); MEAN CORPUSCULAR HGB CONC 34.3 g/dl (32-36); MEAN PLATELET VOLUME 11.7 fL (7.4-10.4); MONO % 7.1 %; MONO ABS # 0.63 K/uL (0.11-0.59); NEUT % 48.8 %; NEUT ABS # 4.32 K/uL (1.4-6.5); PLATELET COUNT 230 K/uL (130-400); RED CELL DISTRIBUTION WIDTH CV 12.2 % (11.5-14.5); RED CELL DISTRIBUTION WIDTH SD 40.7 fL (36.4-46.3); WHITE BLOOD COUNT 8.85 K/uL (4.8-10.8)
== END ==
LOC: C.LABUPBEA 08:18
PROVIDERS: ATTEND Nurse Practitioner Family
DX: F25.9 Schizoaffective disorder, unspecified (principal)

== ENCOUNTER → 2017-07-29 | Outpatient (CLI) | payer OTHER ==
[2017-07-29 09:51] LABS: BASO % 0.4 %; BASO ABS # 0.03 K/uL (0-0.2); EOS % 1.8 %; EOS ABS # 0.14 K/uL (0-0.5); HEMATOCRIT 39.7 % (37-47); HEMOGLOBIN 13.5 g/dL (12.0-16.0); IG# 0.02 K/uL (0.00-0.02); LYMPH ABS # 3.08 K/uL (1.2-3.4); MEAN CELL VOLUME 90.2 fL (80-100); MEAN CORPUSCULAR HEMOGLOBIN 30.7 pg (25-34); MEAN PLATELET VOLUME 11.7 fL (7.4-10.4); MONO % 8.1 %; MONO ABS # 0.64 K/uL (0.11-0.59); NEUT % 50.4 %; NEUT ABS # 3.98 K/uL (1.4-6.5); PLATELET COUNT 212 K/uL (130-400); RED CELL DISTRIBUTION WIDTH CV 12.2 % (11.5-14.5); RED CELL DISTRIBUTION WIDTH SD 40.3 fL (36.4-46.3); WHITE BLOOD COUNT 7.89 K/uL (4.8-10.8)
== END ==
LOC: C.LABUPBEA 09:18
PROVIDERS: ATTEND Nurse Practitioner Family
DX: F25.9 Schizoaffective disorder, unspecified (principal)

== ENCOUNTER → 2017-08-05 | Outpatient (CLI) | payer OTHER ==
[2017-08-05 09:51] LABS: BASO % 0.5 %; BASO ABS # 0.04 K/uL (0-0.2); EOS % 1.8 %; EOS ABS # 0.15 K/uL (0-0.5); IG# 0.02 K/uL (0.00-0.02); LYMPH % 40.8 %; LYMPH ABS # 3.43 K/uL (1.2-3.4); MEAN CELL VOLUME 89.8 fL (80-100); MEAN CORPUSCULAR HEMOGLOBIN 30.7 pg (25-34); MEAN CORPUSCULAR HGB CONC 34.2 g/dl (32-36); MEAN PLATELET VOLUME 11.9 fL (7.4-10.4); MONO % 8.9 %; MONO ABS # 0.75 K/uL (0.11-0.59); NEUT % 47.8 %; NEUT ABS # 4.01 K/uL (1.4-6.5); PLATELET COUNT 238 K/uL (130-400); RED CELL DISTRIBUTION WIDTH CV 12.2 % (11.5-14.5); RED CELL DISTRIBUTION WIDTH SD 39.5 fL (36.4-46.3)
== END | disposition home or self-care (01) ==
LOC: C.LABUPBEA 09:32
PROVIDERS: ATTEND Nurse Practitioner Family
DX: F25.9 Schizoaffective disorder, unspecified (principal)

== ENCOUNTER → 2017-08-08 | Outpatient (CLI) | payer OTHER ==
[2017-08-08 08:29] LABS: BASO % 0.2 %; BASO ABS # 0.02 K/uL (0-0.2); EOS ABS # 0.17 K/uL (0-0.5); HEMATOCRIT 38.9 % (37-47); HEMOGLOBIN 13.2 g/dL (12.0-16.0); IG# 0.01 K/uL (0.00-0.02); LYMPH % 40.5 %; LYMPH ABS # 3.42 K/uL (1.2-3.4); MEAN CORPUSCULAR HEMOGLOBIN 30.6 pg (25-34); MEAN CORPUSCULAR HGB CONC 33.9 g/dl (32-36); MEAN PLATELET VOLUME 11.8 fL (7.4-10.4); MONO % 8.8 %; MONO ABS # 0.74 K/uL (0.11-0.59); NEUT % 48.4 %; NEUT ABS # 4.09 K/uL (1.4-6.5); PLATELET COUNT 234 K/uL (130-400); RED CELL DISTRIBUTION WIDTH CV 12.1 % (11.5-14.5); RED CELL DISTRIBUTION WIDTH SD 39.6 fL (36.4-46.3); WHITE BLOOD COUNT 8.45 K/uL (4.8-10.8)
[2017-08-08 08:41] LABS: ALBUMIN 3.2 gm/dl (3.4-5.0); ALT/SGPT 41 U/L (12-78); BLOOD UREA NITROGEN 18 mg/dl (7-18); CALCIUM 8.6 mg/dl (8.5-10.1); CARBON DIOXIDE 24 mmol/L (21-32); CHOLESTEROL 208 mg/dl (0-200); CREATININE 0.63 mg/dl (0.60-1.20); GLUCOSE 115 mg/dl (70-99); SODIUM 137 mmol/L (136-145)
[2017-08-08 08:51] LABS: ALKALINE PHOSPHATASE 134 U/L (45-117); AST/SGOT 20 U/L (15-37); LDL CHOLESTEROL CALCULATED 117 mg/dl; TOTAL PROTEIN 7.1 gm/dl (6.4-8.2)
== END ==
LOC: C.LABUPBEA 07:46
PROVIDERS: ATTEND Nurse Practitioner Family
DX: F25.9 Schizoaffective disorder, unspecified (principal); E55.9 Vitamin D deficiency, unspecified; E78.5 Hyperlipidemia, unspecified

== ENCOUNTER → 2017-08-11 | Outpatient (CLI) | payer OTHER ==
[2017-08-11 09:34] LABS: BASO % 0.3 %; BASO ABS # 0.02 K/uL (0-0.2); EOS % 1.9 %; EOS ABS # 0.14 K/uL (0-0.5); HEMATOCRIT 37.8 % (37-47); IG# 0.01 K/uL (0.00-0.02); LYMPH % 45.6 %; LYMPH ABS # 3.33 K/uL (1.2-3.4); MEAN CELL VOLUME 89.2 fL (80-100); MEAN CORPUSCULAR HEMOGLOBIN 30.7 pg (25-34); MEAN CORPUSCULAR HGB CONC 34.4 g/dl (32-36); MEAN PLATELET VOLUME 11.4 fL (7.4-10.4); MONO % 7.3 %; MONO ABS # 0.53 K/uL (0.11-0.59); NEUT % 44.8 %; NEUT ABS # 3.28 K/uL (1.4-6.5); PLATELET COUNT 229 K/uL (130-400); RED CELL DISTRIBUTION WIDTH CV 12.3 % (11.5-14.5); RED CELL DISTRIBUTION WIDTH SD 39.4 fL (36.4-46.3); WHITE BLOOD COUNT 7.31 K/uL (4.8-10.8)
== END ==
LOC: C.LABUPBEA 09:22
PROVIDERS: ATTEND Nurse Practitioner Family
DX: F25.9 Schizoaffective disorder, unspecified (principal)

== ENCOUNTER → 2017-08-20 | Outpatient (CLI) | payer OTHER ==
[2017-08-20 09:47] LABS: BASO % 0.2 %; BASO ABS # 0.02 K/uL (0-0.2); EOS % 2.2 %; EOS ABS # 0.19 K/uL (0-0.5); HEMATOCRIT 40.5 % (37-47); HEMOGLOBIN 13.6 g/dL (12.0-16.0); IG# 0.02 K/uL (0.00-0.02); LYMPH % 45.5 %; LYMPH ABS # 3.85 K/uL (1.2-3.4); MEAN CORPUSCULAR HEMOGLOBIN 30.6 pg (25-34); MEAN CORPUSCULAR HGB CONC 33.6 g/dl (32-36); MEAN PLATELET VOLUME 11.8 fL (7.4-10.4); MONO % 8.5 %; MONO ABS # 0.72 K/uL (0.11-0.59); NEUT % 43.4 %; NEUT ABS # 3.67 K/uL (1.4-6.5); PLATELET COUNT 228 K/uL (130-400); RED CELL DISTRIBUTION WIDTH CV 12.4 % (11.5-14.5); RED CELL DISTRIBUTION WIDTH SD 41.5 fL (36.4-46.3); WHITE BLOOD COUNT 8.47 K/uL (4.8-10.8)
== END | disposition home or self-care (01) ==
LOC: C.LABUPBEA 09:34
PROVIDERS: ATTEND Nurse Practitioner Family
DX: F25.9 Schizoaffective disorder, unspecified (principal)

== ENCOUNTER → 2017-08-26 | Outpatient (CLI) | payer OTHER ==
[2017-08-26 08:53] LABS: BASO % 0.5 %; BASO ABS # 0.04 K/uL (0-0.2); EOS % 1.8 %; EOS ABS # 0.14 K/uL (0-0.5); HEMATOCRIT 39.1 % (37-47); HEMOGLOBIN 13.3 g/dL (12.0-16.0); IG# 0.02 K/uL (0.00-0.02); LYMPH % 48.1 %; LYMPH ABS # 3.64 K/uL (1.2-3.4); MEAN CELL VOLUME 90.7 fL (80-100); MEAN CORPUSCULAR HEMOGLOBIN 30.9 pg (25-34); MEAN PLATELET VOLUME 11.3 fL (7.4-10.4); MONO % 9.4 %; MONO ABS # 0.71 K/uL (0.11-0.59); NEUT % 39.9 %; NEUT ABS # 3.02 K/uL (1.4-6.5); PLATELET COUNT 217 K/uL (130-400); RED CELL DISTRIBUTION WIDTH CV 12.2 % (11.5-14.5); WHITE BLOOD COUNT 7.57 K/uL (4.8-10.8)
== END ==
LOC: C.LABUPBEA 08:33
PROVIDERS: ATTEND Nurse Practitioner Family
DX: F25.9 Schizoaffective disorder, unspecified (principal)

== ENCOUNTER → 2017-09-03 | Outpatient (CLI) | payer OTHER ==
[2017-09-03 09:58] LABS: HEMATOCRIT 40.7 % (37-47); HEMOGLOBIN 13.7 g/dL (12.0-16.0); MEAN CELL VOLUME 89.6 fL (80-100); MEAN CORPUSCULAR HEMOGLOBIN 30.2 pg (25-34); MEAN CORPUSCULAR HGB CONC 33.7 g/dl (32-36); MEAN PLATELET VOLUME 11.8 fL (7.4-10.4); PLATELET COUNT 232 K/uL (130-400); RED CELL DISTRIBUTION WIDTH CV 12.1 % (11.5-14.5); RED CELL DISTRIBUTION WIDTH SD 39.4 fL (36.4-46.3); WHITE BLOOD COUNT 7.27 K/uL (4.8-10.8)
[2017-09-03 09:59] LABS: BASO % 0.3 %; BASO ABS # 0.02 K/uL (0-0.2); EOS % 2.1 %; EOS ABS # 0.15 K/uL (0-0.5); IG# 0.01 K/uL (0.00-0.02); LYMPH ABS # 3.27 K/uL (1.2-3.4); MONO % 8.3 %; NEUT % 44.2 %; NEUT ABS # 3.22 K/uL (1.4-6.5)
== END | disposition home or self-care (01) ==
LOC: C.LABUPBEA 08:55
PROVIDERS: ATTEND Nurse Practitioner Family
DX: F25.9 Schizoaffective disorder, unspecified (principal)

== ENCOUNTER → 2017-09-09 | Outpatient (CLI) | payer OTHER ==
[2017-09-09 09:59] LABS: BASO % 0.4 %; BASO ABS # 0.03 K/uL (0-0.2); EOS % 2.4 %; EOS ABS # 0.19 K/uL (0-0.5); HEMOGLOBIN 13.8 g/dL (12.0-16.0); IG# 0.01 K/uL (0.00-0.02); LYMPH % 47.3 %; MEAN CELL VOLUME 91.3 fL (80-100); MEAN CORPUSCULAR HEMOGLOBIN 31.5 pg (25-34); MEAN CORPUSCULAR HGB CONC 34.5 g/dl (32-36); MEAN PLATELET VOLUME 12.3 fL (7.4-10.4); MONO ABS # 0.63 K/uL (0.11-0.59); NEUT % 41.8 %; NEUT ABS # 3.27 K/uL (1.4-6.5); PLATELET COUNT 236 K/uL (130-400); RED CELL DISTRIBUTION WIDTH CV 12.2 % (11.5-14.5); RED CELL DISTRIBUTION WIDTH SD 41.1 fL (36.4-46.3); WHITE BLOOD COUNT 7.83 K/uL (4.8-10.8)
== END | disposition home or self-care (01) ==
LOC: C.LABUPBEA 08:55
PROVIDERS: ATTEND Nurse Practitioner Family
DX: F25.9 Schizoaffective disorder, unspecified (principal)

== ENCOUNTER → 2017-09-16 | Outpatient (CLI) | payer OTHER ==
[2017-09-16 08:38] LABS: BASO % 0.4 %; BASO ABS # 0.03 K/uL (0-0.2); EOS % 1.9 %; EOS ABS # 0.14 K/uL (0-0.5); HEMOGLOBIN 12.8 g/dL (12.0-16.0); IG# 0.01 K/uL (0.00-0.02); LYMPH ABS # 3.33 K/uL (1.2-3.4); MEAN CELL VOLUME 90.2 fL (80-100); MEAN CORPUSCULAR HEMOGLOBIN 31.2 pg (25-34); MEAN CORPUSCULAR HGB CONC 34.6 g/dl (32-36); MEAN PLATELET VOLUME 11.2 fL (7.4-10.4); MONO % 9.3 %; NEUT % 44.3 %; NEUT ABS # 3.35 K/uL (1.4-6.5); PLATELET COUNT 221 K/uL (130-400); RED CELL DISTRIBUTION WIDTH CV 12.3 % (11.5-14.5); RED CELL DISTRIBUTION WIDTH SD 40.3 fL (36.4-46.3); WHITE BLOOD COUNT 7.56 K/uL (4.8-10.8)
== END ==
LOC: C.LABUPBEA 08:16
PROVIDERS: ATTEND Nurse Practitioner Family
DX: F25.9 Schizoaffective disorder, unspecified (principal)

== ENCOUNTER → 2017-09-23 | Outpatient (CLI) | payer OTHER ==
[2017-09-23 08:41] LABS: BASO % 0.4 %; BASO ABS # 0.03 K/uL (0-0.2); EOS % 2.6 %; HEMATOCRIT 36.6 % (37-47); HEMOGLOBIN 12.4 g/dL (12.0-16.0); IG# 0.02 K/uL (0.00-0.02); LYMPH % 41.8 %; MEAN CORPUSCULAR HEMOGLOBIN 30.8 pg (25-34); MEAN CORPUSCULAR HGB CONC 33.9 g/dl (32-36); MEAN PLATELET VOLUME 11.4 fL (7.4-10.4); MONO % 8.6 %; MONO ABS # 0.66 K/uL (0.11-0.59); NEUT % 46.3 %; NEUT ABS # 3.55 K/uL (1.4-6.5); PLATELET COUNT 225 K/uL (130-400); RED CELL DISTRIBUTION WIDTH CV 12.4 % (11.5-14.5); RED CELL DISTRIBUTION WIDTH SD 41.6 fL (36.4-46.3); WHITE BLOOD COUNT 7.66 K/uL (4.8-10.8)
== END ==
LOC: C.LABUPBEA 08:32
PROVIDERS: ATTEND Nurse Practitioner Family
DX: F25.9 Schizoaffective disorder, unspecified (principal)

== ENCOUNTER → 2017-09-30 | Outpatient (CLI) | payer OTHER ==
[2017-09-30 09:03] LABS: BASO % 0.4 %; BASO ABS # 0.03 K/uL (0-0.2); EOS % 2.5 %; EOS ABS # 0.19 K/uL (0-0.5); HEMOGLOBIN 12.5 g/dL (12.0-16.0); IG# 0.01 K/uL (0.00-0.02); LYMPH % 46.4 %; MEAN CELL VOLUME 90.5 fL (80-100); MEAN CORPUSCULAR HEMOGLOBIN 30.6 pg (25-34); MEAN CORPUSCULAR HGB CONC 33.8 g/dl (32-36); MEAN PLATELET VOLUME 10.8 fL (7.4-10.4); MONO % 7.5 %; MONO ABS # 0.57 K/uL (0.11-0.59); NEUT % 43.1 %; NEUT ABS # 3.25 K/uL (1.4-6.5); PLATELET COUNT 250 K/uL (130-400); RED CELL DISTRIBUTION WIDTH CV 12.2 % (11.5-14.5); RED CELL DISTRIBUTION WIDTH SD 39.9 fL (36.4-46.3); WHITE BLOOD COUNT 7.55 K/uL (4.8-10.8)
== END | disposition home or self-care (01) ==
LOC: C.LABUPBEA 08:36
PROVIDERS: ATTEND Nurse Practitioner Family
DX: F25.9 Schizoaffective disorder, unspecified (principal)

== ENCOUNTER → 2017-10-08 | Outpatient (CLI) | payer OTHER | LOC: C.LABUPBEA 09:03 | PROVIDERS: ATTEND Nurse Practitioner Family | DX: F25.9 Schizoaffective disorder, unspecified (principal) ==

== ENCOUNTER → 2017-10-10 | Outpatient (CLI) | payer OTHER ==
[2017-10-10 10:06] LABS: HEMATOCRIT 37.5 % (37-47); HEMOGLOBIN 12.7 g/dL (12.0-16.0); MEAN CELL VOLUME 90.4 fL (80-100); MEAN CORPUSCULAR HEMOGLOBIN 30.6 pg (25-34); MEAN CORPUSCULAR HGB CONC 33.9 g/dl (32-36); MEAN PLATELET VOLUME 11.3 fL (7.4-10.4); PLATELET COUNT 236 K/uL (130-400); RED CELL DISTRIBUTION WIDTH CV 12.2 % (11.5-14.5); RED CELL DISTRIBUTION WIDTH SD 40.4 fL (36.4-46.3); WHITE BLOOD COUNT 7.49 K/uL (4.8-10.8)
[2017-10-10 11:07] LABS: BASO % 0.5 %; BASO ABS # 0.04 K/uL (0-0.2); EOS % 1.9 %; EOS ABS # 0.14 K/uL (0-0.5); IG# 0.01 K/uL (0.00-0.02); LYMPH % 50.1 %; LYMPH ABS # 3.75 K/uL (1.2-3.4); MONO % 7.9 %; MONO ABS # 0.59 K/uL (0.11-0.59); NEUT % 39.5 %; NEUT ABS # 2.96 K/uL (1.4-6.5)
== END ==
LOC: C.LABUPBEA 08:17
PROVIDERS: ATTEND Nurse Practitioner Family
DX: F25.9 Schizoaffective disorder, unspecified (principal)

== ENCOUNTER → 2017-10-14 | Outpatient (CLI) | payer OTHER ==
[2017-10-14 08:43] LABS: BASO % 0.6 %; BASO ABS # 0.04 K/uL (0-0.2); EOS % 2.4 %; EOS ABS # 0.16 K/uL (0-0.5); HEMATOCRIT 36.9 % (37-47); HEMOGLOBIN 12.7 g/dL (12.0-16.0); IG# 0.02 K/uL (0.00-0.02); LYMPH % 49.8 %; LYMPH ABS # 3.37 K/uL (1.2-3.4); MEAN CELL VOLUME 89.8 fL (80-100); MEAN CORPUSCULAR HEMOGLOBIN 30.9 pg (25-34); MEAN CORPUSCULAR HGB CONC 34.4 g/dl (32-36); MEAN PLATELET VOLUME 11.1 fL (7.4-10.4); MONO % 8.4 %; MONO ABS # 0.57 K/uL (0.11-0.59); NEUT % 38.5 %; NEUT ABS # 2.61 K/uL (1.4-6.5); PLATELET COUNT 226 K/uL (130-400); RED CELL DISTRIBUTION WIDTH CV 12.2 % (11.5-14.5); RED CELL DISTRIBUTION WIDTH SD 40.1 fL (36.4-46.3); WHITE BLOOD COUNT 6.77 K/uL (4.8-10.8)
== END ==
LOC: C.LABUPBEA 07:46
PROVIDERS: ATTEND Nurse Practitioner Family
DX: F25.9 Schizoaffective disorder, unspecified (principal)

== ENCOUNTER → 2017-10-21 | Outpatient (CLI) | payer OTHER ==
[2017-10-21 09:46] LABS: BASO % 0.5 %; BASO ABS # 0.04 K/uL (0-0.2); EOS % 2.3 %; EOS ABS # 0.17 K/uL (0-0.5); HEMATOCRIT 38.2 % (37-47); HEMOGLOBIN 13.1 g/dL (12.0-16.0); IG# 0.02 K/uL (0.00-0.02); LYMPH % 46.9 %; LYMPH ABS # 3.46 K/uL (1.2-3.4); MEAN CELL VOLUME 89.7 fL (80-100); MEAN CORPUSCULAR HEMOGLOBIN 30.8 pg (25-34); MEAN CORPUSCULAR HGB CONC 34.3 g/dl (32-36); MEAN PLATELET VOLUME 11.1 fL (7.4-10.4); MONO % 8.4 %; MONO ABS # 0.62 K/uL (0.11-0.59); NEUT % 41.6 %; NEUT ABS # 3.06 K/uL (1.4-6.5); PLATELET COUNT 215 K/uL (130-400); RED CELL DISTRIBUTION WIDTH CV 12.2 % (11.5-14.5); RED CELL DISTRIBUTION WIDTH SD 39.4 fL (36.4-46.3); WHITE BLOOD COUNT 7.37 K/uL (4.8-10.8)
== END | disposition home or self-care (01) ==
LOC: C.LABUPBEA 09:20
PROVIDERS: ATTEND Nurse Practitioner Family
DX: F25.9 Schizoaffective disorder, unspecified (principal)

== ENCOUNTER → 2017-10-28 | Outpatient (CLI) | payer OTHER ==
[2017-10-28 10:08] LABS: BASO % 0.6 %; BASO ABS # 0.04 K/uL (0-0.2); EOS % 2.4 %; EOS ABS # 0.17 K/uL (0-0.5); HEMATOCRIT 38.8 % (37-47); HEMOGLOBIN 12.9 g/dL (12.0-16.0); IG# 0.01 K/uL (0.00-0.02); LYMPH ABS # 3.42 K/uL (1.2-3.4); MEAN CELL VOLUME 91.5 fL (80-100); MEAN CORPUSCULAR HEMOGLOBIN 30.4 pg (25-34); MEAN CORPUSCULAR HGB CONC 33.2 g/dl (32-36); MEAN PLATELET VOLUME 11.6 fL (7.4-10.4); MONO % 9.3 %; MONO ABS # 0.66 K/uL (0.11-0.59); NEUT % 39.6 %; NEUT ABS # 2.83 K/uL (1.4-6.5); PLATELET COUNT 227 K/uL (130-400); RED CELL DISTRIBUTION WIDTH CV 12.3 % (11.5-14.5); RED CELL DISTRIBUTION WIDTH SD 41.5 fL (36.4-46.3); WHITE BLOOD COUNT 7.13 K/uL (4.8-10.8)
== END ==
LOC: C.LABUPBEA 09:22
PROVIDERS: ATTEND Nurse Practitioner Family
DX: F25.9 Schizoaffective disorder, unspecified (principal)

== ENCOUNTER → 2017-12-30 | Outpatient (CLI) | payer OTHER ==
[2017-12-30 09:56] LABS: BASO % 0.4 %; BASO ABS # 0.03 K/uL (0-0.2); EOS % 2.1 %; EOS ABS # 0.17 K/uL (0-0.5); HEMATOCRIT 38.9 % (37-47); HEMOGLOBIN 13.2 g/dL (12.0-16.0); IG# 0.02 K/uL (0.00-0.02); LYMPH % 40.6 %; MEAN CELL VOLUME 90.7 fL (80-100); MEAN CORPUSCULAR HEMOGLOBIN 30.8 pg (25-34); MEAN CORPUSCULAR HGB CONC 33.9 g/dl (32-36); MEAN PLATELET VOLUME 11.6 fL (7.4-10.4); MONO % 7.9 %; MONO ABS # 0.64 K/uL (0.11-0.59); NEUT % 48.8 %; NEUT ABS # 3.97 K/uL (1.4-6.5); PLATELET COUNT 232 K/uL (130-400); RED CELL DISTRIBUTION WIDTH CV 12.3 % (11.5-14.5); RED CELL DISTRIBUTION WIDTH SD 40.5 fL (36.4-46.3); WHITE BLOOD COUNT 8.13 K/uL (4.8-10.8)
== END ==
LOC: C.LABUPBEA 09:35
PROVIDERS: ATTEND Nurse Practitioner Family
DX: F25.9 Schizoaffective disorder, unspecified (principal)

== ENCOUNTER → 2018-01-06 | Outpatient (CLI) | payer OTHER ==
[2018-01-06 10:00] LABS: BASO % 0.5 %; BASO ABS # 0.04 K/uL (0-0.2); EOS % 2.4 %; EOS ABS # 0.18 K/uL (0-0.5); HEMATOCRIT 38.5 % (37-47); HEMOGLOBIN 12.8 g/dL (12.0-16.0); IG# 0.01 K/uL (0.00-0.02); LYMPH % 46.5 %; LYMPH ABS # 3.53 K/uL (1.2-3.4); MEAN CORPUSCULAR HEMOGLOBIN 30.3 pg (25-34); MEAN CORPUSCULAR HGB CONC 33.2 g/dl (32-36); MEAN PLATELET VOLUME 11.9 fL (7.4-10.4); MONO ABS # 0.76 K/uL (0.11-0.59); NEUT % 40.5 %; NEUT ABS # 3.07 K/uL (1.4-6.5); PLATELET COUNT 222 K/uL (130-400); RED CELL DISTRIBUTION WIDTH CV 12.3 % (11.5-14.5); RED CELL DISTRIBUTION WIDTH SD 40.9 fL (36.4-46.3); WHITE BLOOD COUNT 7.59 K/uL (4.8-10.8)
== END ==
LOC: C.LABUPBEA 08:05
PROVIDERS: ATTEND Nurse Practitioner Family
DX: F25.9 Schizoaffective disorder, unspecified (principal)

== ENCOUNTER → 2018-01-13 | Outpatient (CLI) | payer OTHER ==
[2018-01-13 10:44] LABS: BASO % 0.5 %; BASO ABS # 0.04 K/uL (0-0.2); EOS % 2.2 %; EOS ABS # 0.17 K/uL (0-0.5); HEMATOCRIT 37.8 % (37-47); HEMOGLOBIN 12.7 g/dL (12.0-16.0); IG# 0.02 K/uL (0.00-0.02); LYMPH ABS # 3.87 K/uL (1.2-3.4); MEAN CELL VOLUME 91.7 fL (80-100); MEAN CORPUSCULAR HEMOGLOBIN 30.8 pg (25-34); MEAN CORPUSCULAR HGB CONC 33.6 g/dl (32-36); MONO % 8.5 %; MONO ABS # 0.67 K/uL (0.11-0.59); NEUT % 39.5 %; NEUT ABS # 3.12 K/uL (1.4-6.5); PLATELET COUNT 219 K/uL (130-400); RED CELL DISTRIBUTION WIDTH CV 12.4 % (11.5-14.5); RED CELL DISTRIBUTION WIDTH SD 41.7 fL (36.4-46.3); WHITE BLOOD COUNT 7.89 K/uL (4.8-10.8)
== END ==
LOC: C.LABUPBEA 07:56
PROVIDERS: ATTEND Nurse Practitioner Family
DX: F25.9 Schizoaffective disorder, unspecified (principal)

== ENCOUNTER → 2018-01-19 | Outpatient (CLI) | payer OTHER ==
[2018-01-19 09:59] LABS: BASO % 0.5 %; BASO ABS # 0.04 K/uL (0-0.2); EOS % 2.6 %; EOS ABS # 0.21 K/uL (0-0.5); HEMATOCRIT 38.5 % (37-47); HEMOGLOBIN 13.2 g/dL (12.0-16.0); IG# 0.01 K/uL (0.00-0.02); LYMPH % 44.4 %; LYMPH ABS # 3.59 K/uL (1.2-3.4); MEAN CELL VOLUME 89.5 fL (80-100); MEAN CORPUSCULAR HEMOGLOBIN 30.7 pg (25-34); MEAN CORPUSCULAR HGB CONC 34.3 g/dl (32-36); MEAN PLATELET VOLUME 11.7 fL (7.4-10.4); MONO ABS # 0.65 K/uL (0.11-0.59); NEUT % 44.4 %; NEUT ABS # 3.58 K/uL (1.4-6.5); PLATELET COUNT 245 K/uL (130-400); RED CELL DISTRIBUTION WIDTH CV 12.1 % (11.5-14.5); RED CELL DISTRIBUTION WIDTH SD 39.1 fL (36.4-46.3); WHITE BLOOD COUNT 8.08 K/uL (4.8-10.8)
== END ==
LOC: C.LABUPBEA 09:22
PROVIDERS: ATTEND Nurse Practitioner Family
DX: F25.9 Schizoaffective disorder, unspecified (principal)

== ENCOUNTER → 2018-01-27 | Outpatient (CLI) | payer OTHER ==
[2018-01-27 08:09] LABS: HEMATOCRIT 37.8 % (37-47); HEMOGLOBIN 12.4 g/dL (12.0-16.0); MEAN CELL VOLUME 91.7 fL (80-100); MEAN CORPUSCULAR HEMOGLOBIN 30.1 pg (25-34); MEAN CORPUSCULAR HGB CONC 32.8 g/dl (32-36); MEAN PLATELET VOLUME 11.6 fL (7.4-10.4); PLATELET COUNT 222 K/uL (130-400); RED CELL DISTRIBUTION WIDTH CV 12.4 % (11.5-14.5); RED CELL DISTRIBUTION WIDTH SD 41.5 fL (36.4-46.3); WHITE BLOOD COUNT 7.07 K/uL (4.8-10.8)
== END ==
LOC: C.LABUPBEA 07:43
PROVIDERS: ATTEND Nurse Practitioner Family
DX: F25.9 Schizoaffective disorder, unspecified (principal)

== ENCOUNTER 2019-08-26 18:29 | Inpatient (IN) ==
--- NOTE | 2019-08-26 19:26 | XRay Report ---
XR chest 1V portable CLINICAL HISTORY: fever COUGH COMPARISON STUDY: No previous studies for comparison. FINDINGS: The heart is enlarged. There is a thoracic scoliosis. There is no lobar consolidation. Ther e is no failure. There are no pleural effusions. Subtle increased density within the left upper lung zone, likely represents a summation with the scapula.[ IMPRESSION: Cardiomegaly. No evidence of failure. No evidence of lobar consolidation. ACT 112: Negative or not required by law. Electronically signed by: Kunal Sanchez M.D. 08/26/2019 7:25 PM
[2019-08-26 19:56] LABS: Influenza A virus by PCR Neg for Influ A (Neg); Influenza B virus by PCR Neg for Influ B (Neg)
--- NOTE | 2019-08-26 20:11 | CT Scan Report ---
CT head/brain wo con CLINICAL HISTORY: AMS, vomiting COMPARISON STUDY: 11/06/2018 TECHNIQUE: Axial CT of the brain is performed from the vertex to the skull base. IV contrast was not administered for this examination. A dose lowering technique was utilized adhering to the principles of ALARA. CT DOSE: 2763.53 mGy.cm FINDINGS: No intra or extra-axial mass lesions are visualized. There is no CT evidence of acute cortical infarc tion. There is no evidence of midline shift. There is no acute hemorrhage. No calvarial fractures ar e visualized. There is a cavum of septum pellucidum. There is stable ventricular dilatation. There is frontal and t emporal lobe atrophy. There is minor ethmoid sinus mucosal thickening. IMPRESSION: 1. No acute intracranial findings 2. Stable ventricular dilatation 3. Stable frontal and temporal lobe atrophy ACT 112: Negative or not required by law. Electronically signed by: Kunal Sanchez M.D. 08/26/2019 8:10 PM
[2019-08-26 20:48] LABS: Basophils # (auto) 0.01 K/uL (0-0.2); Basophils % (auto) 0.1 %; Hematocrit (blood only) 35.7 % (37-47); Immature Granulocytes # (auto) 0.06 K/uL (0.00-0.02); Immature Granulocytes % (auto) 0.4 %; Lymphocytes # (auto) 1.32 K/uL (1.2-3.4); Lymphocytes % (auto) 7.9 %; Mean Corpuscular Hemoglobin 30.8 pg (25-34); Mean Corpuscular Hgb Conc 33.6 g/dL (32-36); Mean Corpuscular Volume 91.8 fL (80-100); Mean Platelet Volume 11.2 fL (7.4-10.4); Monocytes # (auto) 0.98 K/uL (0.11-0.59); Monocytes % (auto) 5.8 %; Neutrophils % (auto) 85.8 %; Platelet Count 162 K/uL (130-400); RDW Coefficient of Variation 12.3 % (11.5-14.5); RDW Standard Deviation 41.4 fL (36.4-46.3); Red Blood Count 3.89 M/uL (4.2-5.4); White Blood Count 16.77 K/uL (4.8-10.8)
[2019-08-26 20:54] LABS: Alanine Aminotransferase 16 U/L (12-78); Albumin Level 2.6 gm/dl (3.4-5.0); Aspartate Aminotransferase 16 U/L (15-37); BUN Creatinine Ratio 19.9 (10-20); Blood Urea Nitrogen 28 mg/dl (7-18); Calcium 8.8 mg/dl (8.5-10.1); Carbon Dioxide 27 mmol/L (21-32); Chloride 107 mmol/L (98-107); Est GFR (Non-African American) 40.5; Glucose 163 mg/dl (70-99); Potassium 3.2 mmol/L (3.5-5.1); Sodium 140 mmol/L (136-145)
[2019-08-26 20:58] LABS: Albumin Globulin Ratio 0.6 (0.9-2); Alkaline Phosphatase 85 U/L (45-117); Bilirubin,Total 0.7 mg/dl (0.2-1); Globulin 4.6 gm/dl (2.5-4.0); Total Protein 7.2 gm/dl (6.4-8.2); Troponin I < 0.015 ng/ml (0-0.045)
[2019-08-26] MEDS ORDERED: VANCOMYCIN HCL 2,000 MG in SODIUM CHLORIDE 0.9% 500 ML IV ONE (21:03)
[2019-08-26] MEDS ORDERED: PIPERACILLIN/TAZOBACTAM 4.5 GM/120 ML BAG IV ONE (21:03)
[2019-08-26] MEDS ORDERED: VANCOMYCIN CONSULT ACTIVE PRN (21:03)
[2019-08-26] MEDS ORDERED: PIPERACILL/TAZOBAC CONSULT ACTIVE PRN (21:03)
[2019-08-26] MEDS ORDERED: ACETAMINOPHEN 1,000 MG/100 ML VIAL IV STA (21:11)
[2019-08-26 21:28] LABS: Appearance Urine Turbid (Clear); Bacteria Urine Automated 2+ (Negative); Blood Urine 2+ (Negative); Color Urine Dark Yellow; Epithelial Cell Urine Auto 20-30 /lpf (0-5); Glucose Urine UA Negative (Negative); Ketones Urine Trace (Negative); Leukocyte Esterase Urine 3+ (Negative); Nitrite Urine Negative (Negative); Protein Urine 3+ (Negative); Specific Gravity Urine 1.028 (1.000-1.030); Urobilinogen Urine Negative (Negative); WBC Urine Automated >30 /hpf (0-5); pH Urine 6.5 (4.5-7.5)
[2019-08-26 21:36] LABS: Bilirubin Urine Negative (Negative); Ictotest Urine Negative (Negative)
[2019-08-26] MEDS ORDERED: NORMOSOL-R 250 ML IV ONE (21:36)
[2019-08-26 22:06] LABS: Magnesium 1.9 mg/dl (1.8-2.4); Thyroid Stimulating Hormone 0.443 uIu/ml (0.300-4.500)
--- NOTE | 2019-08-26 22:14 | History & Physical Report ---
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 seizure disorder, probably stable on regimen Parkinson's disease on medications hypertension, slightly elevated upon arrival at the ER currently within normal limits DM 2 diet-controlled, well-controlled as of recent hemoglobin A1c of 6.4 last year Hypokalemia secondary to emesis left breast malignancy (CIS) as per records mood disorder/schizophrenia as per records Medical telemetry Cultures, Cefepime for complicated UTI/colitis Additional Flagyl for colitis Monitor creatinine response to IVF, appropriate to hold home losartan for now sponsor IV fluids Bowel regimen Flomax trial, strain urine Urology consult Re: obstructive uropathy Basal insulin adjusted for n.p.o. status, ISS BG goal [id number], update hemoglobin A1c Replace potassium DVT prophylaxis. Heparin subcu Full code for now Attempted to contact patient's daughter (Ms. Fabiana Harrison, contact #[phone]) over the phone to update her of plan of care for patient. No answer. Left message for call back. Text document was generated using [employer] voice recognition software. It may contain grammatical or spelling errors. Kindly contact undersigned for clarification of any documentation item in question. History of Present Illness Chief Complaint: I do not know as per patient Nausea vomiting fever as per records [facility] History obtained from patient and records. Limited history from patient secondary to cognitive impairment. 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 Few days history of nausea, vomiting symptoms. Patient denies abdominal pain, chest pain, S OB symptoms, dysuria, flank pain symptoms. [facility] at the [facility]. At the ER, patient received Zosyn for sepsis. Medical History as above Surgical History : Could not be obtained Family History : Could not be obtained Personal/Social history : Non-smoker, no EtOH intake, [facility] resident Allergies Allergy/AdvReac Type Severity Reaction Status Date / Time metformin Allergy Mild NAUSEA Unverified 07/01/14 13:34 Cipro Allergy Unknown unknown Unverified 07/01/14 13:34 Home Medications Home Medications Medication Instructions Recorded Confirmed Type acetaminophen 650 mg UT Q4 PRN 08/26/19 08/26/19 History acetaminophen [Tylenol] 650 mg PO Q8 PRN 08/26/19 08/26/19 History amlodipine [Norvasc] 10 mg PO DAILY 08/26/19 08/26/19 History atropine 2 drp SUBLINGUAL Q4 PRN 08/26/19 08/26/19 History carbidopa-levodopa 1 tab PO TID 08/26/19 08/26/19 History cholecalciferol (vitamin D3) 10,000 unit PO DAILY 08/26/19 08/26/19 History [Vitamin D3] clonidine HCl 0.3 mg PO Q12 08/26/19 08/26/19 History clozapine 50 mg PO DAILY 08/26/19 08/26/19 History clozapine 100 mg PO DAILY 08/26/19 08/26/19 History clozapine 200 mg PO DAILY 08/26/19 08/26/19 History levetiracetam 1,000 mg PO BID 08/26/19 08/26/19 History losartan [Cozaar] 100 mg PO DAILY 08/26/19 08/26/19 History metoprolol tartrate 200 mg PO BID 08/26/19 08/26/19 History ondansetron HCl [Zofran] 4 mg PO Q4 PRN 08/26/19 08/26/19 History lsucizljj-wmqffcsm-mxxgv-w.pet 1 applic UT UD PRN 08/26/19 08/26/19 History [Hemorrhoidal Cream] phenytoin sodium extended 100 mg PO BID 08/26/19 08/26/19 History [Dilantin Extended] polyvinyl alcohol [Artificial 1 drp OPHTHALMIC (EYE) BID PRN 08/26/19 08/26/19 History Tears (polyvin alc)] selenium sulfide 1 applic TOPICAL WESA 08/26/19 08/26/19 History sorbitol 15 ml PO BID PRN 08/26/19 08/26/19 History trazodone 25 mg PO HS 08/26/19 08/26/19 History Past Med/Surg History Social History (Updated 08/26/19 @ 23:18 by Suzanne Raymond MD) Preferred Language: Turkmen Communication Ability: Effective Communication Ability Comment: dementia Supervisor Intermediates Required: No Beliefs That Will Affect Care: None Current Living Situation: Long-Term Current Living Situation Comment: [facility] current occupational status: disabled Feels Safe at Home: Yes Smoking Status: Unknown if ever smoked Review of Systems Review of Systems: CCould not be reliably obtained Physical Exam Physical Exam: GENERAL: Slightly uncomfortable, disoriented, obese, no respiratory distress SKIN: Normal color, warm HEENT: Sparse hair, pink palpebral conjunctivae, no ptosis, dry buccal mucosa NECK : Supple, short neck, no tenderness CHEST : Decreased breath sounds , no tenderness HEART : RRR, systolic murmur ABDOMEN: Some distention, nontender EXTREMITIES : Minimal LE swelling, no LE tenderness, no other conspicuous deformities noted NEUROLOGIC : Coherent but disoriented, slightly hard of hearing, chronic facial asymmetry, chronic left hemiparesis Results & Data Vital Signs (Past 12 Hours) Vital Signs Temp Pulse Resp BP Pulse Ox 08/26/19 21:30 39.5 C H 90 31 H 153/77 H 81 L 08/26/19 21:00 89 16 160/76 H 91 08/26/19 20:39 89 20 141/82 H 94 08/26/19 18:35 37.6 C H 85 20 130/60 93 Laboratory Results Laboratory Results WBC 16.77 K/uL (4.8-10.8) H 08/26/19 20:20 RBC 3.89 M/uL (4.2-5.4) L 08/26/19 20:20 Hgb 12.0 g/dL (12.0-16.0) 08/26/19 20:20 Hct 35.7 % (37-47) L 08/26/19 20:20 MCV 91.8 fL (80-100) 08/26/19 20:20 MCH 30.8 pg (25-34) 08/26/19 20:20 MCHC 33.6 g/dL (32-36) 08/26/19 20:20 RDW Std Deviation 41.4 fL (36.4-46.3) 08/26/19 20:20 RDW Coeff of Elodia 12.3 % (11.5-14.5) 08/26/19 20:20 Plt Count 162 K/uL (130-400) 08/26/19 20:20 MPV 11.2 fL (7.4-10.4) H 08/26/19 20:20 Immature Gran % (Auto) 0.4 % 08/26/19 20:20 Neut % (Auto) 85.8 % 08/26/19 20:20 Lymph % (Auto) 7.9 % 08/26/19 20:20 Piatt % (Auto) 5.8 % 08/26/19 20:20 Eos % (Auto) 0.0 % 08/26/19 20:20 Baso % (Auto) 0.1 % 08/26/19 20:20 Immature Gran # (Auto) 0.06 K/uL (0.00-0.02) H 08/26/19 20:20 Neut # (Auto) 14.40 K/uL (1.4-6.5) H 08/26/19 20:20 Lymph # (Auto) 1.32 K/uL (1.2-3.4) 08/26/19 20:20 Piatt # (Auto) 0.98 K/uL (0.11-0.59) H 08/26/19 20:20 Eos # (Auto) 0.00 K/uL (0-0.5) 08/26/19 20:20 Baso # (Auto) 0.01 K/uL (0-0.2) 08/26/19 20:20 Sodium 140 mmol/L (136-145) 08/26/19 20:20 Potassium 3.2 mmol/L (3.5-5.1) L 08/26/19 20:20 Chloride 107 mmol/L (98-107) 08/26/19 20:20 Carbon Dioxide 27 mmol/L (21-32) 08/26/19 20:20 Anion Gap 7.0 (3-11) 08/26/19 20:20 BUN 28 mg/dl (7-18) H 08/26/19 20:20 Creatinine 1.39 mg/dl (0.6-1.2) H 08/26/19 20:20 Est Cr Clr Drug Dosing Not Reportable 08/26/19 20:20 Est GFR ( Amer) 47.0 08/26/19 20:20 Est GFR (Non-Af Amer) 40.5 08/26/19 20:20 BUN/Creatinine Ratio 19.9 (10-20) 08/26/19 20:20 Glucose 163 mg/dl (70-99) H 08/26/19 20:20 Lactate 2.9 mmol/L (0.4-2.0) H* 08/26/19 20:20 Calcium 8.8 mg/dl (8.5-10.1) 08/26/19 20:20 Magnesium 1.9 mg/dl (1.8-2.4) 08/26/19 20:20 Magnesium Cancelled 08/26/19 20:20 Total Bilirubin 0.7 mg/dl (0.2-1) 08/26/19 20:20 AST 16 U/L (15-37) 08/26/19 20:20 ALT 16 U/L (12-78) 08/26/19 20:20 Alkaline Phosphatase 85 U/L (45-117) 08/26/19 20:20 Troponin I < 0.015 ng/ml (0-0.045) 08/26/19 20:20 Total Protein 7.2 gm/dl (6.4-8.2) 08/26/19 20:20 Albumin 2.6 gm/dl (3.4-5.0) L 08/26/19 20:20 Globulin 4.6 gm/dl (2.5-4.0) H 08/26/19 20:20 Albumin/Globulin Ratio 0.6 (0.9-2) L 08/26/19 20:20 TSH 0.443 uIu/ml (0.300-4.500) 08/26/19 20:20 TSH Cancelled 08/26/19 20:20 Urine Color Dark Yellow 08/26/19 21:10 Urine Appearance Turbid (Clear) A 08/26/19 21:10 Urine pH 6.5 (4.5-7.5) 08/26/19 21:10 Ur Specific [place] 1.028 (1.000-1.030) 08/26/19 21:10 Urine Protein 3+ (Negative) H 08/26/19 21:10 Urine Glucose (UA) Negative (Negative) 08/26/19 21:10 Urine Ketones Trace (Negative) H 08/26/19 21:10 Urine Blood 2+ (Negative) H 08/26/19 21:10 Urine Nitrite Negative (Negative) 08/26/19 21:10 Urine Bilirubin Negative (Negative) 08/26/19 21:10 Urine Urobilinogen Negative (Negative) 08/26/19 21:10 Ur Leukocyte Esterase 3+ (Negative) H 08/26/19 21:10 Urine WBC (Auto) >30 /hpf (0-5) H 08/26/19 21:10 Urine RBC (Auto) 10-30 /hpf (0-4) H 08/26/19 21:10 U Hyaline Cast (Auto) 5-10 /lpf (0-5) H 08/26/19 21:10 U Epithel Cells (Auto) 20-30 /lpf (0-5) H 08/26/19 21:10 Urine Bacteria (Auto) 2+ (Negative) H 08/26/19 21:10 Urine Yeast Not Reportable 08/26/19 21:10 Phenytoin 5.0 mcg/ml (10-20) L 08/26/19 20:20 Influenza Type A (PCR) Neg for Influ A (Neg) 08/26/19 19:13 Influenza Type B (PCR) Neg for Influ B (Neg) 08/26/19 19:13 Diagnostic Findings Chest x-ray : Cardiomegaly. No evidence of failure. No evidence of lobar consolidation. CT head: 1. No acute intracranial findings 2. Stable ventricular dilatation 3. Stable frontal and temporal lobe atrophy CT abdomen pelvis initial read: Very large amount of impacted stool causing stercoral colitis. No pneumatosis or perforation at this time. 2 stones at the left UPJ measuring 5 mm each resulting in left hydronephrosis and perinephric stranding. Hepatomegaly. EKG as per my interpretation : Rate 85, NSR, normal axis, diffuse T wave flattening
--- NOTE | 2019-08-26 22:50 | XRay Report ---
XR chest 1V portable CLINICAL HISTORY: Hypoxia COMPARISON STUDY: Study performed earlier in the day FINDINGS: The study is significantly limited from a technical standpoint. The patient is listing to t he right. The study is markedly rotated. The heart is mildly enlarged. There is no lobar consolidatio n. There is mild interstitial prominence. There is a probable trace right pleural effusion.[ IMPRESSION: 1. Markedly limited study from a technical standpoint 2. No evidence of lobar consolidation 3. Mild interstitial and vascular prominence. Probable trace right pleural effusion. ACT 112: Negative or not required by law. Electronically signed by: Kunal Sanchez M.D. 08/26/2019 10:48 PM
[2019-08-26] MEDS ORDERED: ALBUMIN 25% 50 ML IV ONE (23:11)
--- NOTE | 2019-08-26 23:16 | Emergency Department Note ---
History of Present Illness General Chief complaint: Illness Source: EMS and RN notes reviewed Mode of arrival: ambulatory Limitations: altered mental status (dementia) History of Present Illness Onset (ago): day(s) 3 Associated symptoms: + fever/chills and + nausea/vomiting Treatments prior to arrival: other (tylenol) This patient is a 63-year-old female who resides in a nursing facility who presents by EMS with complaints of vomiting and fever for the last several days. Patient apparently has been receiving Tylenol with some improvement in the fever. Patient's history is primarily obtained from nursing report and EMS. Patient answers no to all questions. Home Medications Home Medications Medication Instructions Recorded Confirmed Type acetaminophen [address] Q4 PRN 08/26/19 08/26/19 History acetaminophen [Tylenol] 650 mg PO Q8 PRN 08/26/19 08/26/19 History amlodipine [Norvasc] 10 mg PO DAILY 08/26/19 08/26/19 History atropine 2 drp SUBLINGUAL Q4 PRN 08/26/19 08/26/19 History carbidopa-levodopa 1 tab PO TID 08/26/19 08/26/19 History cholecalciferol (vitamin D3) 10,000 unit PO DAILY 08/26/19 08/26/19 History [Vitamin D3] clonidine HCl 0.3 mg PO Q12 08/26/19 08/26/19 History clozapine 50 mg PO DAILY 08/26/19 08/26/19 History clozapine 100 mg PO DAILY 08/26/19 08/26/19 History clozapine 200 mg PO DAILY 08/26/19 08/26/19 History levetiracetam 1,000 mg PO BID 08/26/19 08/26/19 History losartan [Cozaar] 100 mg PO DAILY 08/26/19 08/26/19 History metoprolol tartrate 200 mg PO BID 08/26/19 08/26/19 History ondansetron HCl [Zofran] 4 mg PO Q4 PRN 08/26/19 08/26/19 History auehrmmnj-ltqkoetu-zfvwj-w.pet [address] UD PRN 08/26/19 08/26/19 History [Hemorrhoidal Cream] phenytoin sodium extended 100 mg PO BID 08/26/19 08/26/19 History [Dilantin Extended] polyvinyl alcohol [Artificial 1 drp OPHTHALMIC (EYE) BID PRN 08/26/19 08/26/19 History Tears (polyvin alc)] selenium sulfide 1 applic TOPICAL WESA 08/26/19 08/26/19 History sorbitol 15 ml PO BID PRN 08/26/19 08/26/19 History trazodone 25 mg PO HS 08/26/19 08/26/19 History Allergies Allergy/AdvReac Type Severity Reaction Status Date / Time metformin Allergy Mild NAUSEA Unverified 07/01/14 13:34 Cipro Allergy Unknown unknown Unverified 07/01/14 13:34 Past Med/Surg History Medical History (Updated 08/26/19 @ 23:28 by Suzanne Raymond MD) Hypertension Seizure (Chronic) Social History (Updated 08/26/19 @ 23:18 by Suzanne Raymond MD) Preferred Language: Vietnamese Current Living Situation: Skilled Nursing current occupational status: disabled Feels Safe at Home: Yes Smoking Status: Unknown if ever smoked Review of Systems See HPI for pertinent positives & negatives. and A total of 10 systems reviewed and were otherwise negative Physical Exam Vital Signs Vital Signs - 24 hr 08/26/19 18:35 08/26/19 18:46 08/26/19 20:39 Temperature 37.6 C H Temperature Source Oral Pulse Rate 85 89 Pulse Rate from SpO2 Sensor 90 Respiratory Rate 20 20 Blood Pressure 130/60 141/82 H Blood Pressure Mean 83 104 Pulse Oximetry 93 94 Oxygen Delivery Method Room Air Room Air Sepsis Recent Fever Within 48 Hours Yes Sepsis New/Unexplained Change in Mental Status No Sepsis Action Taken by Nursing No Action Required 08/26/19 21:00 08/26/19 21:30 08/26/19 22:00 Temperature 39.5 C H Temperature Source Pulse Rate 89 90 94 H Pulse Rate from SpO2 Sensor 89 94 H Respiratory Rate 16 31 H 21 Blood Pressure 160/76 H 153/77 H 121/99 Blood Pressure Mean 104 102 104 Pulse Oximetry 91 81 L Oxygen Delivery Method Sepsis Recent Fever Within 48 Hours Sepsis New/Unexplained Change in Mental Status Sepsis Action Taken by Nursing 08/26/19 22:30 08/26/19 22:48 08/26/19 23:00 Temperature 38.2 C H Temperature Source Pulse Rate 87 81 Pulse Rate from SpO2 Sensor Respiratory Rate 20 16 Blood Pressure 116/65 117/65 Blood Pressure Mean 79 82 Pulse Oximetry 93 Oxygen Delivery Method Room Air Sepsis Recent Fever Within 48 Hours Sepsis New/Unexplained Change in Mental Status Sepsis Action Taken by Nursing Vital signs reviewed. Noted to be febrile General: Chronically ill-appearing 63 yo female, in no significant distress. HEENT: No scleral icterus, PERRLA, neck supple. Atraumatic. Cardiovascular: Regular rate and rhythm, no extra sounds. Pulmonary: Clear to auscultation bilaterally, normal work of breathing. Abdomen: Soft, obese nontender, nondistended, positive bowel sounds. Musculoskeletal: Atraumatic, no peripheral edema. Neurologic: Patient is somnolent but arousable. She answers "no" to all questions asked. Skin: Warm, dry, no rash Course Administered Medications Discontinued Medications Piperacillin Sod/Tazobactam Sod (Zosyn) 4.5 gm in 120 mls @ 240 mls/hr IV NOW ONE Stop: 08/26/19 21:32 Last Infusion: 08/26/19 22:34 Dose: 0 mls/hr Documented by: [id number] Admin: 08/26/19 22:06 Dose: 240 mls/hr Documented by: [id number] Vancomycin HCl 2,000 mg/ (Sodium Chloride) 540 mls @ 200 mls/hr IV NOW ONE Stop: 08/26/19 23:44 Last Admin: 08/26/19 22:07 Dose: Not Given Documented by: [id number] Acetaminophen (Ofirmev) 1,000 mg in 100 mls @ 400 mls/hr IV NOW STA Stop: 08/26/19 21:25 Last Infusion: 08/26/19 22:00 Dose: 0 mls/hr Documented by: [id number] Admin: 08/26/19 21:45 Dose: 400 mls/hr Documented by: [id number] Parenteral Electrolytes (Normosol-R) 250 mls @ 999 mls/hr IV .Q16M ONE Stop: 08/26/19 21:51 Last Infusion: 08/26/19 22:31 Dose: 0 mls/hr Documented by: [id number] Admin: 08/26/19 21:57 Dose: 999 mls/hr Documented by: [id number] Medical Decision Making Differential Diagnosis Differential diagnosis: Etiologies such as viral syndrome, otitis, pharyngitis, pneumonia, influenza, meningitis, urinary tract infection, septic arthritis, soft tissue infectious process, intra-abdominal process, sepsis, bacteremia, as well as others were entertained. Medical Records Attestation: I reviewed the patient's medical records. Home Medications Current Medication List: was personally reviewed by me Laboratory Data Attestation: I reviewed the patient's lab results. Result diagrams: 08/26/19 20:20 08/26/19 20:20 Lab Results 08/26/19 08/26/19 08/26/19 Range/Units 19:13 20:20 20:20 WBC 16.77 H (4.8-10.8) K/uL RBC 3.89 L (4.2-5.4) M/uL Hgb 12.0 (12.0-16.0) g/dL Hct 35.7 L (37-47) % MCV 91.8 (80-100) fL MCH 30.8 (25-34) pg MCHC 33.6 (32-36) g/dL RDW Std Deviation 41.4 (36.4-46.3) fL RDW Coeff of [place] 12.3 (11.5-14.5) % Plt Count 162 (130-400) K/uL MPV 11.2 H (7.4-10.4) fL Immature Gran % (Auto) 0.4 % Neut % (Auto) 85.8 % Lymph % (Auto) 7.9 % Williamson % (Auto) 5.8 % Eos % (Auto) 0.0 % Baso % (Auto) 0.1 % Immature Gran # (Auto) 0.06 H (0.00-0.02) K/uL Neut # (Auto) 14.40 H (1.4-6.5) K/uL Lymph # (Auto) 1.32 (1.2-3.4) K/uL Williamson # (Auto) 0.98 H (0.11-0.59) K/uL Eos # (Auto) 0.00 (0-0.5) K/uL Baso # (Auto) 0.01 (0-0.2) K/uL Sodium 140 (136-145) mmol/L Potassium 3.2 L (3.5-5.1) mmol/L Chloride 107 (98-107) mmol/L Carbon Dioxide 27 (21-32) mmol/L Anion Gap 7.0 (3-11) BUN 28 H (7-18) mg/dl Creatinine 1.39 H (0.6-1.2) mg/dl Est Cr Clr Drug Dosing Not Reportable Est GFR ( Amer) 47.0 Est GFR (Non-Af Amer) 40.5 BUN/Creatinine Ratio 19.9 (10-20) Glucose 163 H (70-99) mg/dl Lactate (0.4-2.0) mmol/L Calcium 8.8 (8.5-10.1) mg/dl Magnesium 1.9 (1.8-2.4) mg/dl Total Bilirubin 0.7 (0.2-1) mg/dl AST 16 (15-37) U/L ALT 16 (12-78) U/L Alkaline Phosphatase 85 (45-117) U/L Troponin I < 0.015 (0-0.045) ng/ml Total Protein 7.2 (6.4-8.2) gm/dl Albumin 2.6 L (3.4-5.0) gm/dl Globulin 4.6 H (2.5-4.0) gm/dl Albumin/Globulin Ratio 0.6 L (0.9-2) TSH 0.443 (0.300-4.500) uIu/ml Urine Color Urine Appearance (Clear) Urine pH (4.5-7.5) Ur Specific [place] (1.000-1.030) Urine Protein (Negative) Urine Glucose (UA) (Negative) Urine Ketones (Negative) Urine Blood (Negative) Urine Nitrite (Negative) Urine Bilirubin (Negative) Urine Urobilinogen (Negative) Ur Leukocyte Esterase (Negative) Urine WBC (Auto) (0-5) /hpf Urine RBC (Auto) (0-4) /hpf U Hyaline Cast (Auto) (0-5) /lpf U Epithel Cells (Auto) (0-5) /lpf Urine Bacteria (Auto) (Negative) Urine Yeast Phenytoin (10-20) mcg/ml Influenza Type A (PCR) Neg for Influ A (Neg) Influenza Type B (PCR) Neg for Influ B (Neg) 08/26/19 08/26/19 08/26/19 Range/Units 20:20 20:20 20:20 WBC (4.8-10.8) K/uL RBC (4.2-5.4) M/uL Hgb (12.0-16.0) g/dL Hct (37-47) % MCV (80-100) fL MCH (25-34) pg MCHC (32-36) g/dL RDW Std Deviation (36.4-46.3) fL RDW Coeff of [place]odia (11.5-14.5) % Plt Count (130-400) K/uL MPV (7.4-10.4) fL Immature Gran % (Auto) % Neut % (Auto) % Lymph % (Auto) % Williamson % (Auto) % Eos % (Auto) % Baso % (Auto) % Immature Gran # (Auto) (0.00-0.02) K/uL Neut # (Auto) (1.4-6.5) K/uL Lymph # (Auto) (1.2-3.4) K/uL Williamson # (Auto) (0.11-0.59) K/uL Eos # (Auto) (0-0.5) K/uL Baso # (Auto) (0-0.2) K/uL Sodium (136-145) mmol/L Potassium (3.5-5.1) mmol/L Chloride (98-107) mmol/L Carbon Dioxide (21-32) mmol/L Anion Gap (3-11) BUN (7-18) mg/dl Creatinine (0.6-1.2) mg/dl Est Cr Clr Drug Dosing Est GFR ( Amer) Est GFR (Non-Af Amer) BUN/Creatinine Ratio (10-20) Glucose (70-99) mg/dl Lactate 2.9 H* (0.4-2.0) mmol/L Calcium (8.5-10.1) mg/dl Magnesium Cancelled (1.8-2.4) mg/dl Total Bilirubin (0.2-1) mg/dl AST (15-37) U/L ALT (12-78) U/L Alkaline Phosphatase (45-117) U/L Troponin I (0-0.045) ng/ml Total Protein (6.4-8.2) gm/dl Albumin (3.4-5.0) gm/dl Globulin (2.5-4.0) gm/dl Albumin/Globulin Ratio (0.9-2) TSH Cancelled (0.300-4.500) uIu/ml Urine Color Urine Appearance (Clear) Urine pH (4.5-7.5) Ur Specific [place] (1.000-1.030) Urine Protein (Negative) Urine Glucose (UA) (Negative) Urine Ketones (Negative) Urine Blood (Negative) Urine Nitrite (Negative) Urine Bilirubin (Negative) Urine Urobilinogen (Negative) Ur Leukocyte Esterase (Negative) Urine WBC (Auto) (0-5) /hpf Urine RBC (Auto) (0-4) /hpf U Hyaline Cast (Auto) (0-5) /lpf U Epithel Cells (Auto) (0-5) /lpf Urine Bacteria (Auto) (Negative) Urine Yeast Phenytoin 5.0 L (10-20) mcg/ml Influenza Type A (PCR) (Neg) Influenza Type B (PCR) (Neg) 08/26/19 08/26/19 Range/Units 21:10 22:10 WBC (4.8-10.8) K/uL RBC (4.2-5.4) M/uL Hgb (12.0-16.0) g/dL Hct (37-47) % MCV (80-100) fL MCH (25-34) pg MCHC (32-36) g/dL RDW Std Deviation (36.4-46.3) fL RDW Coeff of Elodia (11.5-14.5) % Plt Count (130-400) K/uL MPV (7.4-10.4) fL Immature Gran % (Auto) % Neut % (Auto) % Lymph % (Auto) % Williamson % (Auto) % Eos % (Auto) % Baso % (Auto) % Immature Gran # (Auto) (0.00-0.02) K/uL Neut # (Auto) (1.4-6.5) K/uL Lymph # (Auto) (1.2-3.4) K/uL Williamson # (Auto) (0.11-0.59) K/uL Eos # (Auto) (0-0.5) K/uL Baso # (Auto) (0-0.2) K/uL Sodium (136-145) mmol/L Potassium (3.5-5.1) mmol/L Chloride (98-107) mmol/L Carbon Dioxide (21-32) mmol/L Anion Gap (3-11) BUN (7-18) mg/dl Creatinine (0.6-1.2) mg/dl Est Cr Clr Drug Dosing Est GFR ( Amer) Est GFR (Non-Af Amer) BUN/Creatinine Ratio (10-20) Glucose (70-99) mg/dl Lactate 2.3 H* (0.4-2.0) mmol/L Calcium (8.5-10.1) mg/dl Magnesium (1.8-2.4) mg/dl Total Bilirubin (0.2-1) mg/dl AST (15-37) U/L ALT (12-78) U/L Alkaline Phosphatase (45-117) U/L Troponin I (0-0.045) ng/ml Total Protein (6.4-8.2) gm/dl Albumin (3.4-5.0) gm/dl Globulin (2.5-4.0) gm/dl Albumin/Globulin Ratio (0.9-2) TSH (0.300-4.500) uIu/ml Urine Color Dark Yellow Urine Appearance Turbid A (Clear) Urine pH 6.5 (4.5-7.5) Ur Specific [place] 1.028 (1.000-1.030) Urine Protein 3+ H (Negative) Urine Glucose (UA) Negative (Negative) Urine Ketones Trace H (Negative) Urine Blood 2+ H (Negative) Urine Nitrite Negative (Negative) Urine Bilirubin Negative (Negative) Urine Urobilinogen Negative (Negative) Ur Leukocyte Esterase 3+ H (Negative) Urine WBC (Auto) >30 H (0-5) /hpf Urine RBC (Auto) 10-30 H (0-4) /hpf U Hyaline Cast (Auto) 5-10 H (0-5) /lpf U Epithel Cells (Auto) 20-30 H (0-5) /lpf Urine Bacteria (Auto) 2+ H (Negative) Urine Yeast Not Reportable Phenytoin (10-20) mcg/ml Influenza Type A (PCR) (Neg) Influenza Type B (PCR) (Neg) Imaging Data Radiologist's Impression: XR chest 1V portable CLINICAL HISTORY: fever COUGH COMPARISON STUDY: No previous studies for comparison. FINDINGS: The heart is enlarged. There is a thoracic scoliosis. There is no lobar consolidation. There is no failure. There are no pleural effusions. Subtle increased density within the left upper lung zone, likely represents a summation with the scapula.[ IMPRESSION: Cardiomegaly. No evidence of failure. No evidence of lobar consolidation. ACT 112: Negative or not required by law. Electronically signed by: Kunal Sanchez M.D. 08/26/2019 7:25 PM Dictated: 08/26/191923 Transcribed: 08/26/191923 CT head/brain wo con CLINICAL HISTORY: AMS, vomiting COMPARISON STUDY: 11/06/2018 TECHNIQUE: Axial CT of the brain is performed from the vertex to the skull base. IV contrast was not administered for this examination. A dose lowering technique was utilized adhering to the principles of ALARA. CT DOSE: 2763.53 mGy.cm FINDINGS: No intra or extra-axial mass lesions are visualized. There is no CT evidence of acute cortical infarction. There is no evidence of midline shift. There is no acute hemorrhage. No calvarial fractures are visualized. There is a cavum of septum pellucidum. There is stable ventricular dilatation. There is frontal and temporal lobe atrophy. There is minor ethmoid sinus mucosal thickening. IMPRESSION: 1. No acute intracranial findings 2. Stable ventricular dilatation 3. Stable frontal and temporal lobe atrophy ACT 112: Negative or not required by law. Electronically signed by: Kunal Sanchez M.D. 08/26/2019 8:10 PM Dictated: 08/26/192007 Transcribed: 08/26/192007 ECG Data Attestation: I personally reviewed and interpreted this ECG as follows: Indication: + altered mental status and + vomiting Rate (beats per minute): 62 Rhythm: + normal sinus ECG [place]: + Normal ECG Findings: + Other (Diffuse T wave flattening with T wave inversion in the lateral leads.); no PACs and no PVCs Blood Pressure Blood Pressure Findings: Normal blood pressure MDM Narrative This patient was evaluated and appeared to be in no significant distress. Physical examination is significant for a fever. Patient was placed on the design specialist and noted to have a stable blood pressure and heart rate. Nursing staff had significant difficulty obtaining laboratory work and IV a ccess. Chest x-ray was obtained and is negative, influenza swab is negative. Laboratory work was finally obtained and an elevated WBC is noted. Patient's lactate is 2.9. IV fluids were initiated. Patient was given IV Zosyn and vancomycin. Catheterized urine specimen is significant for UTI. This will be sent for culture. Head CT was obtained and is negative for acute intracranial abnormality. Patient did receive 1000 mg of IV Tylenol for her fever. Patient's EKG reveals no evidence of acute ischemic change. Patient's case was discussed with the hospitalist, Dr. Blackwood for further evaluation and management. Impression & Plan Sepsis, UTI (urinary tract infection) Discharge Plan Visit Data Chief Complaint: Illness ED Provider: Suzanne Raymond Discharge Problem: Sepsis, UTI (urinary tract infection) Discharge Problem: Sepsis Qualifiers: Sepsis type: sepsis due to unspecified organism Sepsis acute organ dysfunction status: without acute organ dysfunction Qualified Code(s): A41.9 - Sepsis, unspecified organism UTI (urinary tract infection) Qualifiers: Urinary tract infection type: acute cystitis Hematuria presence: without he maturia Qualified Code(s): N30.00 - Acute cystitis without hematuria
[2019-08-26] MEDS ORDERED: METOPROLOL TARTRATE 25 MG TAB PO SCH (23:31)
[2019-08-26] MEDS ORDERED: INSULIN GLARGINE SOLOSTAR 100 UNITS/ML 3 ML PEN SC STA (23:31)
[2019-08-26] MEDS ORDERED: PROMETHAZINE HCL 12.5 MG in SODIUM CHLORIDE 0.9% 50 ML IV PRN (23:31)
[2019-08-26] MEDS ORDERED: GLUCAGON FOR INJ 1 MG VIAL SQ PRN (23:31)
[2019-08-26] MEDS ORDERED: ACETAMINOPHEN 325 MG TAB PO PRN (23:31)
[2019-08-26] MEDS ORDERED: OXYCODONE HCL IR 5 MG TAB (IMMEDIATE RELEASE) PO PRN (23:31)
[2019-08-26] MEDS ORDERED: DEXTROSE 50% 50 ML SYRINGE IV PRN (23:31)
[2019-08-26] MEDS ORDERED: CARBOHYDRATES FOR HYPOGLYCEMIA PO PRN (23:31)
[2019-08-26] MEDS ORDERED: GLUCOSE 10 TABS/TUBE PO PRN (23:31)
[2019-08-26] MEDS ORDERED: GLUCOSE 40% GEL 15 GM TUBE PO PRN (23:31)
[2019-08-26] MEDS ORDERED: MAGNESIUM SULFATE / D5W 1 GM/100 ML BAG IV ONE (23:31)
[2019-08-26] MEDS ORDERED: TAMSULOSIN HCL 0.4 MG CAP PO ONE (23:37)
[2019-08-26] MEDS ORDERED: bisacodyL 10 MG SUPP PR STA (23:37)
[2019-08-26] MEDS ORDERED: CEFEPIME CONSULT ACTIVE PRN (23:40)
[2019-08-27] MEDS ORDERED: PNEUMOCOCCAL POLYSACCHARIDES 25 MCG/0.5 ML VIAL/SYR IM ONE (00:03)
[2019-08-27] MEDS ORDERED: PNEUMOCOCCAL ADMINISTRATION CHARGE ONE (00:03)
[2019-08-27] MEDS ORDERED: INFLUENZA VIRUS QUAD VACCINE 0.5 ML SYR IM ONE (00:03)
[2019-08-27] MEDS ORDERED: INFLUENZA ADMINISTRATION CHARGE ONE (00:03)
[2019-08-27] MEDS ORDERED: POLYETHYLENE (MIRALAX) 17 GM PACK PO STA (00:04)
[2019-08-27] MEDS ORDERED: POTASSIUM CHLORIDE 40 MEQ in SODIUM CHLORIDE 0.9% 1000ML 1,000 ML IV SCH (00:15)
[2019-08-27] MEDS: PHENYTOIN SODIUM ER 100 MG CAP PO SCH ×3 (00:31→20:16)
[2019-08-27] MEDS: CARBIDOPA/LEVODOP 10/100MG TAB PO SCH ×4 (00:32→20:16)
[2019-08-27] MEDS: INSULIN ASPART 100 UNITS/ML 3 ML PEN SC SCH ×5 (00:35→20:16)
[2019-08-27] MEDS: POTASSIUM CHLORIDE / WTR 10 MEQ/100 ML PLCT IV SCH ×4 (00:44→04:04)
[2019-08-27] MEDS: PATIENT'S HEIGHT AND/OR WEIGHT NEEDED SCH ×5 (00:51→09:13)
[2019-08-27] MEDS: DOCUSATE SODIUM/SENNA 50/8.6MG TAB PO SCH ×2 (00:53→08:20)
[2019-08-27] MEDS: metroNIDAZOLE 500 MG/100 ML BAG IV SCH ×4 (01:06→23:38)
[2019-08-27] MEDS ORDERED: ACETAMINOPHEN 325 MG TAB PO STA (04:04)
[2019-08-27 04:11] LABS: Hematocrit (blood only) 33.4 % (37-47); Hemoglobin 11.3 g/dL (12.0-16.0); Mean Corpuscular Hemoglobin 30.8 pg (25-34); Mean Corpuscular Hgb Conc 33.8 g/dL (32-36); Platelet Count 143 K/uL (130-400); RDW Coefficient of Variation 12.4 % (11.5-14.5); RDW Standard Deviation 41.2 fL (36.4-46.3); Red Blood Count 3.67 M/uL (4.2-5.4); White Blood Count 16.99 K/uL (4.8-10.8)
[2019-08-27] MEDS ORDERED: METOPROLOL TARTRATE 50 MG TAB PO SCH (04:15)
[2019-08-27 04:30] LABS: BUN Creatinine Ratio 21.5 (10-20); Calcium 8.7 mg/dl (8.5-10.1); Creatinine Clr Calc Pharmacy 45.1 ml/min; Est GFR (African American) 44.6; Est GFR (Non-African American) 38.5; Potassium 3.3 mmol/L (3.5-5.1)
[2019-08-27 04:35] LABS: Basophils # (auto) 0.01 K/uL (0-0.2); Basophils % (auto) 0.1 %; Immature Granulocytes # (auto) 0.09 K/uL (0.00-0.02); Immature Granulocytes % (auto) 0.5 %; Lymphocytes # (auto) 1.36 K/uL (1.2-3.4); Monocytes # (auto) 1.23 K/uL (0.11-0.59); Monocytes % (auto) 7.2 %; Neutrophils % (auto) 84.2 %; RBC Morphology Unremarkable
[2019-08-27] MEDS: HEPARIN SOD 5,000 UNIT/0.5 ML VIAL SQ SCH ×3 (05:33→20:15)
[2019-08-27 06:09] LABS: Estimated Average Glucose 123 mg/dl; Hemoglobin A1C 5.9 % (4.5-5.6)
[2019-08-27] MEDS ORDERED: LACTATED RINGER'S 1,000 ML IV ONE (06:15)
--- NOTE | 2019-08-27 06:22 | Communication Note ---
Date of Service: August 27, 2019 Lactic acid up to 3.2 from 2.3. IVF bolus, follow lactic acid Add Daptomycin to Cefepime and Flagyl
[2019-08-27] MEDS ORDERED: DAPTOMYCIN CONSULT ACTIVE PRN (06:24)
[2019-08-27] MEDS ORDERED: POTASSIUM CHLORIDE 20 MEQ TABCR PO STA (06:24)
--- NOTE | 2019-08-27 06:41 | CT Scan Report ---
CT OF THE ABDOMEN AND PELVIS WITHOUT CONTRAST CLINICAL HISTORY: Nausea and vomiting. Acute renal failure. COMPARISON STUDY: No previous studies for comparison. TECHNIQUE: Axial images of the abdomen and pelvis were obtained without IV contrast. Images were revi ewed in the axial, sagittal, and coronal planes. Automated exposure control was utilized for the rigoberto dy. A dose lowering technique was utilized adhering to the principles of ALARA. FINDINGS: Lung bases are unremarkable. There is mild cardiomegaly. No biliary ductal dilatation is pr esent status post cholecystectomy. Unenhanced images of the liver, spleen, adrenal glands and pancrea s are unremarkable. A large amount stool within the rectum and sigmoid colon is noted. Thickening of the rectum with mild pericolonic infiltration and fluid. There is no pneumatosis, free air or portal venous gas. There is no lymphadenopathy. Two left ureteropelvic junction calculi measure up to 6 mm. These result in mild left hydronephrosis. Note is made of a 5 mm right renal calculus. A punctate left renal calculus is present. No additiona l ureteral calculi are present. There is no right collecting system dilatation. IMPRESSION: 1. Two left ureteropelvic junction calculi which measure up to 6 mm and result in mild left hydroneph rosis and mild left perinephric and periureteral infiltration. Bilateral nephrolithiasis. 2. Large amount stool within the rectum and sigmoid colon with rectal wall thickening with mild perir ectal infiltration and fluid suggestive of stercoral colitis. ACT 112: Negative or not required by law. Electronically signed by: Olegario Willard M.D. 08/27/2019 6:39 AM
[2019-08-27] MEDS: DAPTOmycin 425 MG in SYRINGE 0 ML IV SCH (06:49)
[2019-08-27] MEDS ORDERED: LACTULOSE SYRUP 30 GM/45 ML UDP PO STA (06:52)
--- NOTE | 2019-08-27 07:27 | Electrocardiogram Report ---
Test Reason : Blood Pressure : / mmHG Vent. Rate : 084 BPM Atrial Rate : 084 BPM P-R Int : 158 ms QRS Dur : 080 ms QT Int : 358 ms P-R-T Axes : 041 010 042 degrees QTc Int : 423 ms Normal sinus rhythm Nonspecific T wave abnormality Abnormal ECG When compared with ECG of 16-NOV-2010 21:01, No significant change Confirmed by Sudheer Amos ([id number]) on 08/27/2019 7:26:44 AM Referred By: REFERRED SELF Confirmed By:Sudheer Amos
[2019-08-27] MEDS: LACTATED RINGER'S 1,000 ML IV SCH ×2 (08:17→20:37)
[2019-08-27] MEDS: CEFEPIME 1,000 MG in SYRINGE 0 ML IV SCH ×2 (08:18→20:16)
[2019-08-27] MEDS: levETIRAcetam 500 MG TAB PO SCH ×2 (08:20→20:16)
[2019-08-27] MEDS: AMLODIPINE BESYLATE 5 MG TAB PO SCH (08:20)
[2019-08-27] MEDS: cloZAPine 25 MG TAB PO SCH (08:50)
[2019-08-27] MEDS: cloZAPine 100 MG TAB PO SCH (08:51)
--- NOTE | 2019-08-27 08:56 | Urology Consultation ---
Date of Consultation August 27, 2019 Assessment & Plan (1) UTI (urinary tract infection): (2) Sepsis: (3) Left ureteral calculus: 63 yo F with multiple comorbidities admitted for fever, sepsis, suspected UTI, in the setting of two 6 mm stones at the left UPJ. - Fever overnight, afebrile this AM, nontoxic - Creatinine and WBC increased today - UC&S and BCx pending, continue broad spectrum abx, follow sensitivities - Keep NPO - Strain all urine Findings reviewed with Dr. Rossi. Given her fever, leukocytosis, and JANUSZ in the context of two obstructing 6 mm left UPJ stones, will proceed with OR for cystoscopy, Left retrograde pyelogram and Left stent placement. Risks and benefits to be reviewed with patient by Dr. Rossi. OR notified. Preoperative CXR and EKG in chart. Will cover with scheduled IV Cefepime and Daptomycin preoperatively. History of Present Illness Reason for Consultation: Obstructive uropathy Attending Physician: Tresa Dc MD History of Present Illness 63 yo F with multiple comorbidities admitted for fever and suspected UTI in the setting of two 6 mm left UPJ stones. New consultation for obstructive uropathy. Patient admitted via [facility] ED on 08/26/19. Patient resides at nursing facility. Per admitting notes, she presented with 3 day history of AMS, fever, chills, nausea and vomiting. ED course reviewed. Lab work: Creatinine 1.39, WBC 16.77, Lactic acid 2.3. UA suggestive of infection. UC&S and BCx collected. CT abd/pelvis demonstrated two 6 mm left UPJ stones. Treated with IV fluids, IV Zosyn, IV Vancomycin, and IV Tylenol. Admitted for obstructive uropathy, UTI, sepsis. Chart review: Afebrile this AM, Tmax 39.5 on 08/25 2130 Cr - 1.45 WBC - 16.99 Lactic acid - 3.2 UC&S pending BCx pending On IV Flagyl, Cefepime, Daptomycin CT abd/pelvis IMPRESSION: 1. Two left ureteropelvic junction calculi which measure up to 6 mm and result in mild left hydronephrosis and mild left perinephric and periureteral infiltration. Bilateral nephrolithiasis. 2. Large amount stool within the rectum and sigmoid colon with rectal wall thickening with mild perirectal infiltration and fluid suggestive of stercoral colitis. Awake, alert and resting in bed. Appears comfortable. ROS unobtainable due to cognitive status. No family at bedside. Denies pain at this time. Allergies Allergy/AdvReac Type Severity Reaction Status Date / Time metformin Allergy Mild NAUSEA Unverified 07/01/14 13:34 Cipro Allergy Unknown unknown Unverified 07/01/14 13:34 Home Medications Home Medications Medication Instructions Recorded Confirmed Type acetaminophen 650 mg NM Q4 PRN 08/26/19 08/26/19 History acetaminophen [Tylenol] 650 mg PO Q8 PRN 08/26/19 08/26/19 History amlodipine [Norvasc] 10 mg PO DAILY 08/26/19 08/26/19 History atropine 2 drp SUBLINGUAL Q4 PRN 08/26/19 08/26/19 History carbidopa-levodopa 1 tab PO TID 08/26/19 08/26/19 History cholecalciferol (vitamin D3) 10,000 unit PO DAILY 08/26/19 08/26/19 History [Vitamin D3] clonidine HCl 0.3 mg PO Q12 08/26/19 08/26/19 History levetiracetam 1,000 mg PO BID 08/26/19 08/26/19 History losartan [Cozaar] 100 mg PO DAILY 08/26/19 08/26/19 History metoprolol tartrate 200 mg PO BID 08/26/19 08/26/19 History ondansetron HCl [Zofran] 4 mg PO Q4 PRN 08/26/19 08/26/19 History uewtdyklp-khbbqnxc-imgxd-w.pet 1 applic NM UD PRN 08/26/19 08/26/19 History [Hemorrhoidal Cream] phenytoin sodium extended 100 mg PO BID 08/26/19 08/26/19 History [Dilantin Extended] polyvinyl alcohol [Artificial 1 drp OPHTHALMIC (EYE) BID PRN 08/26/19 08/26/19 History Tears (polyvin alc)] selenium sulfide 1 applic TOPICAL WESA 08/26/19 08/26/19 History sorbitol 15 ml PO BID PRN 08/26/19 08/26/19 History trazodone 25 mg PO HS 08/26/19 08/26/19 History clozapine 50 mg PO DAILY 08/27/19 08/27/19 History clozapine 300 mg PO DAILY 08/27/19 08/27/19 History Patient History Medical History Hypertension Seizure (Chronic) Social History Preferred Language: Swedish Communication Ability: Effective Communication Ability Comment: dementia Quality Assurance Monitor Body Required: No Beliefs That Will Affect Care: None Current Living Situation: Senior Living Current Living Situation Comment: [facility] current occupational status: disabled Feels Safe at Home: Yes Smoking Status: Unknown if ever smoked Review of Systems Review of Systems: Unobtainable due to cognitive status Physical Exam Constitutional: well developed, well nourished and + obese; no acute distress and not ill appearing Respiratory: no respiratory distress and no labored breathing Gastrointestinal (Abdomen): Inspection/Auscultation: abdomen normal to inspection; abdomen not distended Percussion/Palpation: abdomen soft; abdomen nontender and no guarding Skin: skin warm, slightly sweaty Neurologic: moves all extremities and awake Psychiatric: Orientation: oriented to person and cooperative Genitourinary: no CVA tenderness Results & Data Vital Signs (Past 12 Hours) Vital Signs Temp Pulse Pulse Pulse Resp BP BP 08/27/19 07:15 36.9 C 77 16 08/27/19 03:58 37.8 C H 95 H 20 08/27/19 02:41 84 08/26/19 23:32 36.9 C 83 16 110/70 08/26/19 23:00 81 16 117/65 08/26/19 22:48 38.2 C H 08/26/19 22:30 87 20 116/65 08/26/19 22:00 94 H 21 121/99 08/26/19 21:30 39.5 C H 90 31 H 153/77 H 08/26/19 21:00 89 16 160/76 H BP Pulse Ox 08/27/19 07:15 118/74 94 08/27/19 03:58 147/91 H 93 08/27/19 02:41 08/26/19 23:32 93 08/26/19 23:00 93 08/26/19 22:48 08/26/19 22:30 08/26/19 22:00 08/26/19 21:30 81 L 08/26/19 21:00 91 PG Care Time/CCT Total # of Minutes Spent Total Time Spent with Patient: Total time spent is greater than 50% in coordination of care (as documented) at patient's floor/unit and/or counseling patient: Coding Level of Care Code 89614 Inpt Consult Level 3 Diagnoses UTI (urinary tract infection) N30.00 Hematuria presence: without hematuria Urinary tract infection type: acute cystitis Sepsis A41.9 Sepsis acute organ dysfunction status: without acute organ dysfunction Sepsis type: sepsis due to unspecified organism Left ureteral calculus N20.1 (1) UTI (urinary tract infection) Hematuria presence: without hematuria Urinary tract infection type: acute cystitis Qualified Code(s): N30.00 - Acute cystitis without hematuria (2) Sepsis Sepsis acute organ dysfunction status: without acute organ dysfunction Sepsis type: sepsis due to unspecified organism Qualified Code(s): A41.9 - Sepsis, unspecified organism
[2019-08-27] MEDS ORDERED: cloNIDine HCL 0.1 MG TAB PO SCH (09:00)
[2019-08-27] MEDS ORDERED: cloZAPine 100 MG TAB PO SCH (09:00)
[2019-08-27] MEDS ORDERED: NON-FORMULARY MEDICATION (Clozapine 200 MG) PO SCH (09:00)
[2019-08-27] MEDS ORDERED: MIDAZOLAM HCL 1 MG/ML 2ML VIAL ONE (09:17)
[2019-08-27] MEDS ORDERED: fentaNYL citrate 100 MCG/2 ML VIAL ONE (09:17)
[2019-08-27] MEDS ORDERED: IOTHALAMATE MEGLUMINE II 17.2% 250 ML VIAL ONE (09:48)
--- NOTE | 2019-08-27 09:59 | Anesthesiology Consultation ---
Date of Service August 27, 2019 Assessment & Plan Chart Review Chart Review: Acceptable Risk for Surgery Consults Requested none History Surgery Operation Date: 08/27/19 09:00 Proposed Procedures p Cystoscopy, Left Stent Placement - Solitario Rossi MD Height/Weight Height: 5 ft 4 in Weight: 97.2 kg Allergies Allergy/AdvReac Type Severity Reaction Status Date / Time metformin Allergy Mild NAUSEA Unverified 07/01/14 13:34 Cipro Allergy Unknown unknown Unverified 07/01/14 13:34 Medications Home Medications Medication Instructions Recorded Confirmed Last Taken acetaminophen 650 mg MI Q4 PRN 08/26/19 08/26/19 Unknown acetaminophen [Tylenol] 650 mg PO Q8 PRN 08/26/19 08/26/19 08/26/19 amlodipine [Norvasc] 10 mg PO DAILY 08/26/19 08/26/19 Unknown atropine 2 drp SUBLINGUAL Q4 PRN 08/26/19 08/26/19 Unknown carbidopa-levodopa 1 tab PO TID 08/26/19 08/26/19 08/26/19 13:00 cholecalciferol (vitamin D3) 10,000 unit PO DAILY 08/26/19 08/26/19 Unknown [Vitamin D3] clonidine HCl 0.3 mg PO Q12 08/26/19 08/26/19 08/26/19 09:00 levetiracetam 1,000 mg PO BID 08/26/19 08/26/19 Unknown losartan [Cozaar] 100 mg PO DAILY 08/26/19 08/26/19 08/26/19 09:00 metoprolol tartrate 200 mg PO BID 08/26/19 08/26/19 Unknown ondansetron HCl [Zofran] 4 mg PO Q4 PRN 08/26/19 08/26/19 Unknown lsasakiyc-bxlhpvig-sygjk-w.pet 1 applic MI UD PRN 08/26/19 08/26/19 Unknown [Hemorrhoidal Cream] phenytoin sodium extended 100 mg PO BID 08/26/19 08/26/19 08/26/19 09:00 [Dilantin Extended] polyvinyl alcohol [Artificial 1 drp OPHTHALMIC (EYE) BID PRN 08/26/19 08/26/19 Unknown Tears (polyvin alc)] selenium sulfide 1 applic TOPICAL WESA 08/26/19 08/26/19 Unknown sorbitol 15 ml PO BID PRN 08/26/19 08/26/19 08/25/19 trazodone 25 mg PO HS 08/26/19 08/26/19 08/26/19 20:00 clozapine 50 mg PO DAILY 08/27/19 08/27/19 Unknown clozapine 300 mg PO DAILY 08/27/19 08/27/19 Unknown Active Medications Generic Name Dose Route Start Last Admin Trade Name Freq PRN Reason Stop Dose Admin Amlodipine Besylate 10 mg 08/27/19 09:00 08/27/19 08:20 Norvasc PO 09/26/19 08:59 10 mg DAILY CHINTAN Administration Carbidopa/Levodopa 1 tab 08/26/19 23:31 08/27/19 08:20 Sinement 10/100mg PO 09/25/19 23:30 1 tab TID CHINTAN Administration Clonidine HCl 0.1 mg 08/27/19 09:00 08/27/19 08:19 Catapres PO 09/26/19 08:59 0.1 mg Q12 CHINTAN Administration Clozapine 50 mg 08/27/19 09:00 08/27/19 08:50 Clozaril PO 09/26/19 08:59 50 mg DAILY CHINTAN Administration Protocol Clozapine 300 mg 08/27/19 09:00 08/27/19 08:51 Clozapine PO 09/26/19 08:59 300 mg DAILY CHINTAN Administration Protocol Heparin Sodium (Porcine) 5,000 units 08/27/19 06:00 08/27/19 05:33 Heparin Sodium (Porcine) SQ 09/26/19 05:59 5,000 units Q8 CHINTAN Administration Metronidazole 500 mg in 100 mls @ 100 mls/hr 08/27/19 00:30 08/27/19 09:23 Flagyl IV 09/06/19 00:29 Infused Q8H CHINTAN Infusion Daptomycin 425 mg/ Syringe 8.5 mls @ 4.25 mls/min 08/27/19 07:00 08/27/19 06:49 IV 09/06/19 06:59 4.25 mls/min Q24H CHINTAN Administration Protocol Lactated Ringer's 1,000 mls @ 100 mls/hr 08/27/19 08:30 08/27/19 08:17 Lr IV 09/26/19 08:29 100 mls/hr .Q10H CHINTAN Administration Cefepime HCl 1,000 mg/ Syringe 11.3 mls @ 5.5 mls/min 08/27/19 08:00 08/27/19 08:18 IV 09/06/19 07:59 5.5 mls/min Q12H CHINTAN Administration Protocol Insulin Aspart 0 units 08/26/19 23:31 08/27/19 09:04 Novolog Flexpen SC 09/25/19 23:30 Not Given ACHS CHINTAN Levetiracetam 1,000 mg 08/27/19 09:00 08/27/19 08:20 Keppra PO 09/26/19 08:59 1,000 mg BID CHINTAN Administration Metoprolol Tartrate 50 mg 08/27/19 04:15 08/27/19 05:33 Lopressor PO 09/26/19 04:14 50 mg BID CHINTAN Administration Phenytoin Sodium 100 mg 08/26/19 23:31 08/27/19 08:21 Dilantin Er PO 09/25/19 23:30 100 mg BID CHINTAN Administration Senna/Docusate Sodium 1 tab 08/27/19 00:10 08/27/19 08:20 Senokot S PO 09/26/19 00:09 1 tab QAM CHINTAN Administration Past Medical History Medical History Hypertension Seizure (Chronic) Social History Smoking Status: Unknown if ever smoked Physical Exam Vital Signs Last Vital Signs Temp 37.8 C H 08/27/19 09:52 Pulse 86 08/27/19 09:52 Resp 20 08/27/19 09:52 BP 126/71 08/27/19 09:52 Pulse Ox 93 08/27/19 09:52 Testing Laboratory Results 08/27/19 03:57 08/27/19 03:57 Hemoglobin A1c 5.9 % (4.5-5.6) H 08/26/19 20:20 Urine Color Dark Yellow 08/26/19 21:10 Urine Appearance Turbid (Clear) A 08/26/19 21:10 Urine pH 6.5 (4.5-7.5) 08/26/19 21:10 Ur Specific [place] 1.028 (1.000-1.030) 08/26/19 21:10 Urine Protein 3+ (Negative) H 08/26/19 21:10 Urine Glucose (UA) Negative (Negative) 08/26/19 21:10 Urine Ketones Trace (Negative) H 08/26/19 21:10 Urine Nitrite Negative (Negative) 08/26/19 21:10 Ur Leukocyte Esterase 3+ (Negative) H 08/26/19 21:10 Urine WBC (Auto) >30 /hpf (0-5) H 08/26/19 21:10 Urine RBC (Auto) 10-30 /hpf (0-4) H 08/26/19 21:10 U Hyaline Cast (Auto) 5-10 /lpf (0-5) H 08/26/19 21:10 U Epithel Cells (Auto) 20-30 /lpf (0-5) H 08/26/19 21:10 Urine Bacteria (Auto) 2+ (Negative) H 08/26/19 21:10 08/26/19 21:10 Urine Culture - Preliminary Urine,Clean Catch Gram negative bacilli 08/27/19 08/27/19 07:39 00:28 POC Glucose 156 H 181 H
--- NOTE | 2019-08-27 10:02 | History & Physical Bridge Note ---
Date of Service August 27, 2019 History & Physical Bridge Note I have examined the patient, reviewed the History & Physical and in the interval since the performance of the History & Physical I have noted the following changes of clinical significance: care d/w with [facility] - per staff patient able to sign own consent, daughter contacted previously as only listed family member, no POA on records and note in chart to NOT contact daugher regarding any medical care due to "family dynamic." Will proceed to OR for emergent cysto, left retrograde and left stent. OCHOA
[2019-08-27] MEDS ORDERED: ATROPINE SULFATE 0.1 MG/ML 10ML SYR IV PRN (10:03)
[2019-08-27] MEDS ORDERED: ePHEDrine sulfate 50 MG/ML AMP IV PRN (10:03)
[2019-08-27] MEDS ORDERED: KETAMINE HCL INJ 50 MG/ML 10 ML VIAL ONE (10:27)
[2019-08-27] MEDS ORDERED: PROPOFOL IV EMULSION 10 MG/ML 20 ML VIAL IV ONE (10:27)
[2019-08-27] MEDS ORDERED: LIDOCAINE HCL 2% 2 ML VIAL/AMP(20MG/ML) INFIL ONE (10:27)
[2019-08-27] MEDS ORDERED: ONDANSETRON INJ 2 MG/ML 2 ML VIAL ONE (10:27)
--- NOTE | 2019-08-27 10:50 | Operative Report ---
PG Post Operative Report Pre & Post Diagnosis Operation Date: 08/27/19 09:00 Preoperative diagnosis: Left ureteral stone and urosepsis. Postoperative diagnosis: Same. Procedure: Cystoscopy, left retrograde pyelography, left ureteral stent placement. Surgeon: Dr. Solitario Rossi. Anesthesia: Monitored anesthesia care with minimal sedation. Drains left in place: 6 [place]olan multilength stent on the left-hand side. Specimen sent pathology: None. Findings: Somewhat ptotic kidney on the left-hand side with good position of stent within the lower pole and redundant loops within the bladder. I identified the patient and participated in the time-out.: Yes Procedure Operation Date: 08/27/19 09:00 Brief history: Patient is a 63-year-old female with a worsening creatinine, febrile with a left ureteral stones and grossly infected urine who is being brought to the operating room for urgent left ureteral decompression. Patient's daughter is not able to be contacted by phone another contact i nformation is present. Care is discussed with the patient's facility which report that she does not have a power of attorney at law and typically signed her own consents. In addition, there is a note on the chart that the daughter is not to be contacted with medical matters. Patient is unable to sign the chart today. Her level of baseline cognition is unclear but it is certainly not improved with her suspected ongoing sepsis and obstructive stone. She is being brought to the operating room for urgent decompression of the left kidney. Broad-spectrum antibiotic coverage is been present since admission. Procedure: Patient was properly identified and brought into the operative suite after review of the consent in the chart. Full timeout procedure was followed. Patient was provided with minimal sedation with propofol but unfortunately had an episode of emesis without any evidence of aspiration and underwent suction for small amount of vomitus from the mouth. A small amount of ketamine was provided with improvement in her level of sedation. Case was able to be done without difficulties with minimal anesthetic provided. 22 Angolan cystoscope was placed into the bladder bladder was surveyed in its entirety demonstrated no intravesical lesions, papillary tumors or masses. Cloudy abnormal urine with apparent infection was noted with erythema and irritation of the bladder mucosa throughout. Attempts at cannulating the left ureteral orifice met with difficulties due to the level of edema and therefore a sensor tip wire preloaded with a multilength ureteral stent was simply advanced to the left upper quadrant under fluoroscopic visualization. Wire was pulled and a lower pole coil was noted with redundant coils being present within the bladder. A somewhat low appearance to the position of the kidney was appreciated and therefore a 5 Angolan open-ended was advanced over a sensor tip wire to allow for proximal opacification of the collecting system. This demonstrated the stent in good position within a ptotic collecting system. Stent removed was removed and bladder was drained. Minimal cloudy urine was appreciated draining from the left kidney and therefore a second culture was not sent. Anesthetic was reversed and patient was transferred to recovery room in stable condition. Follow-up CARE: Patient be readmitted to the floor for standard postoperative management. Will require definitive stone management in the future with ureteroscopy. Hopefully this can be delayed sufficiently to allow for improvement in the current coronavirus pandemic to that the patient be performed safely with minimal risk to herself. Await final cultures, 2 weeks of therapy for complex UTI. Surgeon Solitario Rossi MD Assistant Boiler Operator None Estimated Blood Loss 0 Findings Consistent with Post-Op Diagnosis Specimens None Description of Procedure See above I attest to the content of the Intraoperative Record and any orders documented t herein. Any exceptions are noted below.
--- NOTE | 2019-08-27 10:56 | Fluoroscopy Report ---
FL retrograde includes kub CLINICAL HISTORY: STENT PLACEMENT COMPARISON STUDY: CT of the abdomen and pelvis August 26, 2019. FLUOROSCOPY TIME: 51 seconds. FLUOROSCOPIC IMAGES: 1 FINDINGS: Fluoroscopy was provided for left retrograde exam with ureteral stent insertion. Proximal a spect of stent projects over the left renal pelvis. IMPRESSION: Fluoroscopy provided for left retrograde exam with ureteral stent insertion. ACT 112: Negative or not required by law. Electronically signed by: Olegario Willard M.D. 08/27/2019 10:55 AM
--- NOTE | 2019-08-27 11:24 | Anesthesiology Progress Note ---
Date of Service August 27, 2019 Anesthesia Post Procedure Vital Signs Vital Signs: Temp Pulse Pulse Pulse Pulse Resp BP 08/27/19 11:20 37.7 C H 95 H 25 H 08/27/19 11:10 95 H 26 H 08/27/19 11:00 95 H 24 08/27/19 10:54 37.5 C 96 H 21 08/27/19 09:52 37.8 C H 86 20 08/27/19 09:15 85 08/27/19 07:15 36.9 C 77 16 08/27/19 03:58 37.8 C H 95 H 20 08/27/19 02:41 84 08/26/19 23:32 36.9 C 83 16 08/26/19 23:00 81 16 117/65 08/26/19 22:48 38.2 C H 08/26/19 22:30 87 20 116/65 08/26/19 22:00 94 H 21 121/99 08/26/19 21:30 39.5 C H 90 31 H 153/77 H 08/26/19 21:00 89 16 160/76 H 08/26/19 20:39 89 20 141/82 H 08/26/19 18:35 37.6 C H 85 20 130/60 BP BP Pulse Ox 08/27/19 11:20 104/81 100 08/27/19 11:10 138/73 100 08/27/19 11:00 151/82 H 100 08/27/19 10:54 141/79 H 91 08/27/19 09:52 126/71 93 08/27/19 09:15 08/27/19 07:15 118/74 94 08/27/19 03:58 147/91 H 93 08/27/19 02:41 08/26/19 23:32 110/70 93 08/26/19 23:00 93 08/26/19 22:48 08/26/19 22:30 08/26/19 22:00 08/26/19 21:30 81 L 08/26/19 21:00 91 08/26/19 20:39 94 08/26/19 18:35 93 Transfer of Care Handoff Completed per policy Notes Mental Status: alert / awake / arousable and participated in evaluation Patient Amnestic to Procedure: Yes Nausea / Vomiting: adequately controlled Pain: adequately controlled Airway Patency, RR, SpO2: stable & adequate BP & HR: stable & adequate Hydration State: stable & adequate Anesthetic Complications: no major complications apparent
--- NOTE | 2019-08-27 14:05 | Hospitalist Progress Note ---
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 Currently controlled. Holding losartan Continue to monitor and manage appropriately (3) DM 2 Diet-controlled Most recent hemoglobin A1c 5.9 (4) Hypokalemia secondary to emesis Monitor and replete appropriately (5) Seizure disorder Continue home meds (6) Mood disorder/schizophrenia As per records Continue home medications left breast malignancy (CIS) as per records DVT prophylaxis. Heparin subcu Full code for now Per CM, there had been issues between patient and daughter with respect to m aking medical/health related decisions for her and patient does not want daughter making decisions for her. Will continue management. If mental status does not improve, will discuss further with CM regarding POA/guardianship steps to take Admission and Anticipated Discharge Date Admission Date: August 26, 2019 Subjective Patient seen and examined on return from OR Patient still drowsy but arousable and only oriented to person Review of Systems Review of Systems: Unobtainable due to reduced consciousness Physical Exam Constitutional: no acute distress Drowsy ENMT: external ear and nose normal, oropharynx normal On nasal oxygen Respiratory: normal respiratory effort; no respiratory distress Auscultation: + diminished lung sounds Cardiovascular: Rate/Rhythm: regular rate and regular rhythm Extremities: no pedal edema Gastrointestinal (Abdomen): normal bowel sounds, soft, nontender, no hepatosplenomegaly Neurologic: Drowsy but arousable Limited exam due to mental status Psychiatric: Drowsy but arousable. Oriented only to person Results & Data ([facility]) Vital Signs (Past 12 Hours) Vital Signs Temp Pulse Pulse Pulse Resp BP Pulse Ox 08/27/19 11:30 94 H 22 125/76 100 08/27/19 11:20 37.7 C H 95 H 25 H 104/81 100 08/27/19 11:10 95 H 26 H 138/73 100 08/27/19 11:00 95 H 24 151/82 H 100 08/27/19 10:54 37.5 C 96 H 21 141/79 H 91 08/27/19 09:52 37.8 C H 86 20 126/71 93 08/27/19 09:15 85 08/27/19 07:15 36.9 C 77 16 118/74 94 08/27/19 03:58 37.8 C H 95 H 20 147/91 H 93 08/27/19 02:41 84 Laboratory Results Short CBC 08/26/19 08/27/19 Range/Units 20:20 03:57 WBC 16.77 H 16.99 H (4.8-10.8) K/uL Hgb 12.0 11.3 L (12.0-16.0) g/dL Hct 35.7 L 33.4 L (37-47) % Plt Count 162 143 (130-400) K/uL BMP 08/26/19 08/27/19 20:20 03:57 Sodium 140 140 Potassium 3.2 L 3.3 L Chloride 107 106 Carbon Dioxide 27 25 BUN 28 H 31 H Creatinine 1.39 H 1.45 H Glucose 163 H 151 H Calcium 8.8 8.7 Cardiac Enzymes 08/26/19 Range/Units 20:20 Troponin I < 0.015 (0-0.045) ng/ml Liver Function 08/26/19 Range/Units 20:20 Total Bilirubin 0.7 (0.2-1) mg/dl AST 16 (15-37) U/L ALT 16 (12-78) U/L Alkaline Phosphatase 85 (45-117) U/L Albumin 2.6 L (3.4-5.0) gm/dl Urine 08/26/19 Range/Units 21:10 Urine Color Dark Yellow Urine Appearance Turbid A (Clear) Urine pH 6.5 (4.5-7.5) Ur Specific [place] 1.028 (1.000-1.030) Urine Protein 3+ H (Negative) Urine Glucose (UA) Negative (Negative)
[2019-08-27] MEDS: INSULIN GLARGINE SOLOSTAR 100 UNITS/ML 3 ML PEN SC SCH (20:15)
[2019-08-27] MEDS: METOPROLOL TARTRATE 100 MG TAB PO SCH (20:16)
[2019-08-27] MEDS: TRAZODONE HCL 50 MG TAB PO SCH (20:16)
[2019-08-27] MEDS: cloNIDine HCL 0.3 MG TAB PO SCH (20:16)
[2019-08-28] MEDS: DAPTOmycin 425 MG in SYRINGE 0 ML IV SCH (05:39)
[2019-08-28] MEDS: HEPARIN SOD 5,000 UNIT/0.5 ML VIAL SQ SCH ×3 (05:40→20:01)
[2019-08-28 07:11] LABS: Hematocrit (blood only) 32.2 % (37-47); Hemoglobin 10.6 g/dL (12.0-16.0); Mean Corpuscular Hemoglobin 30.4 pg (25-34); Mean Corpuscular Hgb Conc 32.9 g/dL (32-36); Mean Corpuscular Volume 92.3 fL (80-100); Mean Platelet Volume 11.7 fL (7.4-10.4); Platelet Count 158 K/uL (130-400); RDW Coefficient of Variation 12.5 % (11.5-14.5); RDW Standard Deviation 42.2 fL (36.4-46.3); Red Blood Count 3.49 M/uL (4.2-5.4); White Blood Count 11.64 K/uL (4.8-10.8)
[2019-08-28 07:58] LABS: BUN Creatinine Ratio 30.5 (10-20); Calcium 8.6 mg/dl (8.5-10.1); Creatinine Clr Calc Pharmacy 69.2 ml/min; Est GFR (African American) 73.5; Est GFR (Non-African American) 63.4; Potassium 3.2 mmol/L (3.5-5.1)
[2019-08-28] MEDS: metroNIDAZOLE 500 MG/100 ML BAG IV SCH ×2 (08:41→15:33)
[2019-08-28] MEDS: CEFEPIME 1,000 MG in SYRINGE 0 ML IV SCH (08:41)
[2019-08-28] MEDS: cloNIDine HCL 0.3 MG TAB PO SCH ×2 (08:41→19:53)
[2019-08-28] MEDS: PHENYTOIN SODIUM ER 100 MG CAP PO SCH ×2 (08:42→19:53)
[2019-08-28] MEDS: CARBIDOPA/LEVODOP 10/100MG TAB PO SCH ×3 (08:42→19:53)
[2019-08-28] MEDS: METOPROLOL TARTRATE 100 MG TAB PO SCH ×2 (08:42→19:53)
[2019-08-28] MEDS: TAMSULOSIN HCL 0.4 MG CAP PO SCH (08:43)
[2019-08-28] MEDS: AMLODIPINE BESYLATE 5 MG TAB PO SCH (08:43)
[2019-08-28] MEDS: cloZAPine 25 MG TAB PO SCH (08:43)
[2019-08-28] MEDS: DOCUSATE SODIUM/SENNA 50/8.6MG TAB PO SCH (08:44)
[2019-08-28] MEDS: cloZAPine 100 MG TAB PO SCH (08:44)
[2019-08-28] MEDS: levETIRAcetam 500 MG TAB PO SCH ×2 (08:45→19:53)
[2019-08-28] MEDS: INSULIN ASPART 100 UNITS/ML 3 ML PEN SC SCH ×4 (09:07→19:54)
--- NOTE | 2019-08-28 11:47 | Hospitalist Progress Note ---
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 Follow-up blood cultures JANUSZ resolved Keep NPO while somnolent and resume diet once more awake (2) Hypertension Blood pressure is elevated on admission. Currently controlled. Held losartan due to JANUSZ If Cr remains stable, will resume losartan Continue to monitor and manage appropriately (3) DM 2 Diet-controlled Most recent hemoglobin A1c 5.9 (4) Hypokalemia K is 3.2 today Continue to replete and monitor (5) Seizure disorder Continue home meds (6) Mood disorder/schizophrenia As per records Continue home medications left breast malignancy (CIS) as per records DVT prophylaxis. Heparin subcu Full code for now Per CM, there had been issues between patient and daughter with respect to making medical/health related decisions for her and patient does not want daughter making decisions for her. Will continue management. If mental status does not improve, will discuss further with CM regarding POA/guardianship steps to take Admission and Anticipated Discharge Date Admission Date: August 26, 2019 Subjective Patient seen and examined. Patient is somnolent health arousable and oriented to person only. Per RN patient was more alert earlier and able to take her breakfast and medications shortly went to sleep afterwards. Limited review of systems due to patient being somnolent. Physical Exam Constitutional: + well hydrated; no acute distress Eyes: PERRL, conjunctivae normal, anicteric sclerae ENMT: external ear and nose normal, oropharynx normal Respiratory: normal respiratory effort; no respiratory distress Auscultation: + diminished lung sounds Cardiovascular: RRR, no murmur, no edema Gastrointestinal (Abdomen): normal bowel sounds, soft, nontender, no hepatosplenomegaly Neurologic: Somnolent but arousable Limited exam Psychiatric: Somnolent. Oriented to person only Results & Data ([facility]) Vital Signs (Past 12 Hours) Vital Signs Temp Pulse Pulse Resp BP Pulse Ox 08/28/19 07:37 36.6 C 88 20 176/97 H 91 08/28/19 07:23 90 08/28/19 02:53 36.9 C 83 20 165/91 H 93 08/28/19 00:21 36.8 C 78 20 150/83 H 91 08/28/19 00:00 77 Laboratory Results Short CBC 08/28/19 Range/Units 06:19 WBC 11.64 H (4.8-10.8) K/uL Hgb 10.6 L (12.0-16.0) g/dL Hct 32.2 L (37-47) % Plt Count 158 (130-400) K/uL BMP 08/28/19 06:19 Sodium 140 Potassium 3.2 L Chloride 111 H Carbon Dioxide 22 BUN 29 H Creatinine 0.96 D Glucose 100 H Calcium 8.6
--- NOTE | 2019-08-28 14:21 | Urology Progress Note ---
Date of Service August 28, 2019 Assessment & Plan (1) Left ureteral calculus: Patient postop day 1 status post stent placement for septic stone with fevers. Patient is tolerating stent. Is arousable but resting. No major changes or issues. Patient has drastically improved from clinical picture prior to stent. Is undergoing supportive care with antibiotics, hydration, and medications for analgesia. Is currently resting comfortably. No severe issues or problems. We will plan to likely continue with supportive care with plans for likely intervention at a later date after resolution of UTI and infection Subjective Postop from stent placement for obstruction issues with fever. Patient is arousable but attempting to rest at this point. Had presented extremely ill. Is currently in drastically improved. Patient has been tolerating well. Has noticed some frequency and urgency. Has not had severe pain in the back and flank. Does have occasional burning and irritation. No severe episodes or major changes. No new nausea or vomiting. Had tolerated anesthesia without major problems Review of Systems Review of Systems: All systems reviewed & are unremarkable except as noted in HPI & below Physical Exam Physical Exam: General: arousable, resting comfortably HEENT: Normocephalic Atraumatic. Inspection normal. Cranial Nerves 2-12 Grossly intact. Normal inspection of face. Normal inspection of neck. Psychologic: Normal affect. Respiratory: Nonlabored. No use of accessory muscles. No tachypnea or dyspnea. Cardiovascular: No tachycardia Skin: Malo and Dry. No rashes or visible lesions. Extremities/Lymphatics: No edema Abdomen: Soft Non-distended. No rebound or guarding. Obese Results & Data Vital Signs (Past 12 Hours) Vital Signs Temp Pulse Pulse Resp BP BP Pulse Ox 08/28/19 12:03 151/87 H 08/28/19 07:37 36.6 C 88 20 176/97 H 91 08/28/19 07:23 90 08/28/19 02:53 36.9 C 83 20 165/91 H 93 PG Care Time/CCT Total # of Minutes Spent Total Time Spent with Patient: Total time spent is greater than 50% in coordination of care (as documented) at patient's floor/unit and/or counseling patient: Coding Level of Care Code 42471 Subseq Hosp Care Lvl 3 Diagnoses Left ureteral calculus N20.1
[2019-08-28] MEDS ORDERED: POTASSIUM CHLORIDE PWD 20 MEQ PACK PO ONE (14:40)
[2019-08-28] MEDS: CEFEPIME 2,000 MG in SYRINGE 7.5 ML IV SCH (19:40)
[2019-08-28] MEDS: TRAZODONE HCL 50 MG TAB PO SCH (19:53)
[2019-08-28] MEDS: INSULIN GLARGINE SOLOSTAR 100 UNITS/ML 3 ML PEN SC SCH (19:55)
[2019-08-29] MEDS: metroNIDAZOLE 500 MG/100 ML BAG IV SCH ×3 (00:03→16:39)
[2019-08-29] MEDS: HEPARIN SOD 5,000 UNIT/0.5 ML VIAL SQ SCH ×3 (05:22→22:10)
[2019-08-29 06:44] LABS: Hematocrit (blood only) 33.6 % (37-47); Hemoglobin 11.3 g/dL (12.0-16.0); Mean Corpuscular Hemoglobin 30.4 pg (25-34); Mean Corpuscular Hgb Conc 33.6 g/dL (32-36); Mean Corpuscular Volume 90.3 fL (80-100); Mean Platelet Volume 11.1 fL (7.4-10.4); Platelet Count 180 K/uL (130-400); RDW Coefficient of Variation 12.5 % (11.5-14.5); RDW Standard Deviation 41.4 fL (36.4-46.3); Red Blood Count 3.72 M/uL (4.2-5.4); White Blood Count 10.57 K/uL (4.8-10.8)
[2019-08-29 07:22] LABS: BUN Creatinine Ratio 32.5 (10-20); Calcium 8.6 mg/dl (8.5-10.1); Creatinine Clr Calc Pharmacy 88.3 ml/min; Est GFR (Non-African American) 85.4; Potassium 3.7 mmol/L (3.5-5.1)
[2019-08-29] MEDS: INSULIN ASPART 100 UNITS/ML 3 ML PEN SC SCH ×4 (07:45→20:33)
[2019-08-29] MEDS: CEFEPIME 2,000 MG in SYRINGE 7.5 ML IV SCH ×2 (07:45→20:25)
[2019-08-29] MEDS: cloZAPine 25 MG TAB PO SCH (09:09)
[2019-08-29] MEDS: AMLODIPINE BESYLATE 5 MG TAB PO SCH (09:09)
[2019-08-29] MEDS: TAMSULOSIN HCL 0.4 MG CAP PO SCH (09:09)
[2019-08-29] MEDS: cloZAPine 100 MG TAB PO SCH (09:09)
[2019-08-29] MEDS: DOCUSATE SODIUM/SENNA 50/8.6MG TAB PO SCH (09:10)
[2019-08-29] MEDS: CARBIDOPA/LEVODOP 10/100MG TAB PO SCH ×3 (09:10→20:33)
[2019-08-29] MEDS: METOPROLOL TARTRATE 100 MG TAB PO SCH ×2 (09:10→20:32)
[2019-08-29] MEDS: PHENYTOIN SODIUM ER 100 MG CAP PO SCH ×2 (09:10→20:32)
[2019-08-29] MEDS: levETIRAcetam 500 MG TAB PO SCH ×2 (09:10→20:33)
[2019-08-29] MEDS: LOSARTAN POTASSIUM 50 MG TAB PO SCH (09:11)
[2019-08-29] MEDS: cloNIDine HCL 0.3 MG TAB PO SCH ×2 (09:11→20:32)
--- NOTE | 2019-08-29 09:35 | Hospitalist Progress Note ---
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 Losartan was initially held due to JANUSZ. Blood pressure is getting better controlled now. Losartan resumed (3) DM 2 Diet-controlled Most recent hemoglobin A1c 5.9 (4) Hypokalemia K is 3.7 today (5) Seizure disorder Continue home meds (6) Mood disorder/schizophrenia As per records Continue home medications left breast malignancy (CIS) as per records DVT prophylaxis. Heparin subcu Full code for now Per CM, there had been issues between patient and daughter with respect to making medical/health related decisions for her and patient does not want daughter making decisions for her. Will continue management. If mental status does not improve, will discuss further with CM regarding POA/guardianship steps to take Admission and Anticipated Discharge Date Admission Date: August 26, 2019 Subjective Patient seen and examined. Patient is much awake and alert today Denied any complaints. Physical Exam Constitutional: + well hydrated; no acute distress Eyes: PERRL, conjunctivae normal, anicteric sclerae ENMT: external ear and nose normal, oropharynx normal Respiratory: normal respiratory effort; no respiratory distress Auscultation: + diminished lung sounds Cardiovascular: RRR, no murmur, no edema Rate/Rhythm: regular rate and regular rhythm Extremities: no pedal edema Gastrointestinal (Abdomen): normal bowel sounds, soft, nontender, no hepatosplenomegaly Neurologic: PERRL, EOMI, accommodation nl, no face palsy, no dysarthria Psychiatric: Orientation: alert Oriented to person and year only Results & Data ([place]) Vital Signs (Past 12 Hours) Vital Signs Temp Pulse Pulse Resp BP Pulse Ox Pulse Ox 08/29/19 07:43 36.6 C 83 18 156/83 H 92 03/22/20 00:56 70 08/28/19 22:23 36.6 C 69 20 137/85 93 08/28/19 22:00 95
[2019-08-29] MEDS: TRAZODONE HCL 50 MG TAB PO SCH (20:32)
[2019-08-29] MEDS: INSULIN GLARGINE SOLOSTAR 100 UNITS/ML 3 ML PEN SC SCH (20:33)
[2019-08-30] MEDS ORDERED: METOPROLOL TARTRATE 50 MG TAB PO STA (01:27)
[2019-08-30] MEDS: metroNIDAZOLE 500 MG/100 ML BAG IV SCH ×2 (01:27→08:21)
[2019-08-30 05:52] LABS: Hematocrit (blood only) 32.8 % (37-47); Hemoglobin 10.9 g/dL (12.0-16.0); Mean Corpuscular Hemoglobin 29.9 pg (25-34); Mean Corpuscular Hgb Conc 33.2 g/dL (32-36); Mean Corpuscular Volume 90.1 fL (80-100); Mean Platelet Volume 11.3 fL (7.4-10.4); Platelet Count 187 K/uL (130-400); RDW Coefficient of Variation 12.3 % (11.5-14.5); RDW Standard Deviation 40.8 fL (36.4-46.3); Red Blood Count 3.64 M/uL (4.2-5.4); White Blood Count 10.91 K/uL (4.8-10.8)
[2019-08-30 06:11] LABS: BUN Creatinine Ratio 32.1 (10-20); Calcium 8.6 mg/dl (8.5-10.1); Creatinine Clr Calc Pharmacy 100.3 ml/min; Est GFR (African American) 109.7; Est GFR (Non-African American) 94.7; Potassium 3.9 mmol/L (3.5-5.1)
[2019-08-30] MEDS: HEPARIN SOD 5,000 UNIT/0.5 ML VIAL SQ SCH (06:22)
[2019-08-30] MEDS: CEFEPIME 2,000 MG in SYRINGE 7.5 ML IV SCH (08:21)
[2019-08-30] MEDS: DOCUSATE SODIUM/SENNA 50/8.6MG TAB PO SCH (08:22)
[2019-08-30] MEDS: AMLODIPINE BESYLATE 5 MG TAB PO SCH (08:22)
[2019-08-30] MEDS: CARBIDOPA/LEVODOP 10/100MG TAB PO SCH (08:22)
[2019-08-30] MEDS: cloZAPine 100 MG TAB PO SCH (08:23)
[2019-08-30] MEDS: LOSARTAN POTASSIUM 50 MG TAB PO SCH (08:23)
[2019-08-30] MEDS: PHENYTOIN SODIUM ER 100 MG CAP PO SCH (08:23)
[2019-08-30] MEDS: levETIRAcetam 500 MG TAB PO SCH (08:23)
[2019-08-30] MEDS: TAMSULOSIN HCL 0.4 MG CAP PO SCH (08:23)
[2019-08-30] MEDS: cloZAPine 25 MG TAB PO SCH (08:23)
[2019-08-30] MEDS: INSULIN ASPART 100 UNITS/ML 3 ML PEN SC SCH ×2 (08:24→12:21)
[2019-08-30] MEDS: cloNIDine HCL 0.3 MG TAB PO SCH (08:24)
[2019-08-30] MEDS ORDERED: METOPROLOL TARTRATE 50 MG TAB PO SCH (09:00)
--- NOTE | 2019-08-30 11:11 | Discharge Summary ---
Date of Service August 30, 2019 Admission HPI Per Admitting Provider History obtained from patient and records. Limited history from patient secondary to cognitive impairment. 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 Few days history of nausea, vomiting symptoms. Patient denies abdominal pain, chest pain, S OB symptoms, dysuria, flank pain symptoms. Noted to be febrile at the custodial. At the ER, patient received Zosyn for sepsis. Medical History as above Surgical History : Could not be obtained Family History : Could not be obtained Personal/Social history : Non-smoker, no EtOH intake, custodial resident Admission Exam Per Admitting Provider GENERAL: Slightly uncomfortable, disoriented, obese, no respiratory distress SKIN: Normal color, warm HEENT: Sparse hair, pink palpebral conjunctivae, no ptosis, dry buccal mucosa NECK : Supple, short neck, no tenderness CHEST : Decreased breath sounds , no tenderness HEART : RRR, systolic murmur ABDOMEN: Some distention, nontender EXTREMITIES : Minimal LE swelling, no LE tenderness, no other conspicuous deformities noted NEUROLOGIC : Coherent but disoriented, slightly hard of hearing, chronic facial asymmetry, chronic left hemiparesis Principal Diagnosis Severe sepsis secondary to complicated UTI Bilateral nephrolithiasis with left hydronephrosis Stercoral colitis secondary to constipation Acute kidney injury Discharge Exam Constitutional + well hydrated; no acute distress Eyes PERRL, conjunctivae normal, anicteric sclerae ENMT external ear and nose normal, oropharynx normal Respiratory normal respiratory effort; no respiratory distress Auscultation: + diminished lung sounds Cardiovascular RRR, no murmur, no edema Rate/Rhythm: regular rate and regular rhythm Extremities: no pedal edema Gastrointestinal (Abdomen) normal bowel sounds, soft, nontender, no hepatosplenomegaly Neurologic PERRL, EOMI, accommodation nl, no face palsy, no dysarthria Psychiatric Orientation: alert oriented to person and place Discharge Data Allergies Allergy/AdvReac Type Severity Reaction Status Date / Time metformin Allergy Mild NAUSEA Unverified 07/01/14 13:34 Cipro Allergy Unknown unknown Unverified 07/01/14 13:34 Consultations 08/26/19 22:51 ED Decision to Admit Stat 08/27/19 00:04 Consult Urology Routine Procedures Performed Operation Date: 08/27/19 09:00 Actual Procedures p Cystoscopy, Left Retrograde Pylogram, Left Stent Placement(Left) - Solitario Rossi MD Ordered Studies 08/26/19 18:46 CT head/brain wo con Stat No intra or extra-axial mass lesions are visualized. There is no CT evidence of acute cortical infarction. There is no evidence of midline shift. There is no acute hemorrhage. No calvarial fractures are visualized. There is a cavum of septum pellucidum. There is stable ventricular dilatation. There is frontal and temporal lobe atrophy. There is minor ethmoid sinus mucosal thickening. IMPRESSION: 1. No acute intracranial findings 2. Stable ventricular dilatation 3. Stable frontal and temporal lobe atrophy 08/26/19 22:14 CT abd pelvis wo con Urgent FINDINGS: Lung bases are unremarkable. There is mild cardiomegaly. No biliary ductal dilatation is present status post cholecystectomy. Unenhanced images of the liver, spleen, adrenal glands and pancreas are unremarkable. A large amount stool within the rectum and sigmoid colon is noted. Thickening of the rectum with mild pericolonic infiltration and fluid. There is no pneumatosis, free air or portal venous gas. There is no lymphadenopathy. Two left ureteropelvic junction calculi measure up to 6 mm. These result in mild left hydronephrosis. Note is made of a 5 mm right renal calculus. A punctate left renal calculus is present. No additional ureteral calculi are present. There is no right collecting system dilatation. IMPRESSION: 1. Two left ureteropelvic junction calculi which measure up to 6 mm and result in mild left hydronephrosis and mild left perinephric and periureteral infiltration. Bilateral nephrolithiasis. 2. Large amount stool within the rectum and sigmoid colon with rectal wall thickening with mild perirectal infiltration and fluid suggestive of stercoral colitis. 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 Last fever was over 48hrs ago Has been alert and oriented for the past 48h Lactic acidosis have resolved S/P cystoscopy, left retrograde pyelography, left ureteral stent placement Urine culture growing proteus mirabilis Treated with cefepime. Now changed to keflex to complete therapy Blood cultures neg day 2 JANUSZ resolved Leukocytosis resolved (2) Hypertension Blood pressure is elevated on admission. Losartan was initially held due to JANUSZ. Blood pressure is getting better controlled now. Losartan resumed. Continue home BP meds (3) DM 2 Diet-controlled Most recent hemoglobin A1c 5.9 (4) Hypokalemia K was 3.2 Repleted. Hypokalemia resolved (5) Seizure disorder Continue home meds (6) Mood disorder/schizophrenia As per records Continue home medications Total Time Total Time Spent Total Time Spent (In Minutes): 40 Total Time Includes: Examination of the Patient, Discharge Planning, Medication Reconciliation and Communication With Other Providers Discharge Plan Discharge Items Patient Disposition: Trans Resident Long-Term Care Reason For Visit: SEPSIS Discharge Diagnosis: Severe sepsis secondary to complicated UTI Bilateral nephrolithiasis with left hydronephrosis Acute kidney injury Activity: Resume your previous activity Non-emergency contact: Primary Care Provider Call non-emergency contact if: you have any medication questions and your symptoms worsen Follow-up/Referrals: Inga Penn [Primary Care Provider] - Diet: Regular and Carb Consistent or DM2 Diet Texture: Easy to Chew Addtl Attending Provider Instructions: Ms. Roberts. You were brought to the hospital for nausea, vomiting and fevers. You were also drowsy. You were evaluated and found to have sepsis due to complete gated urinary tract infection. You also had acute kidney injury with kidney stones and obstruction. You had cystoscopy and ureteral stent placement to relieve the obstruction. Your kidney injury resolved. Your infection was treated with injection antibiotics. Please continue to take the oral antibiotics to complete treatment. Please continue to follow-up with your doctors. You will need follow up with urology It was a pleasure taking care of you. Pending Studies at Discharge: No Stand-Alone Forms: My [facility] Skilled Items Patient informed of condition?: Yes DNR: No Discharge Level of Care: Other Communicable Disease: No Discharge Prognosis: Stable Lines: None Urinary Catheter: No Medications and DC Order Prescriptions: New sennosides-docusate sodium [Senokot-S] 8.6-50 mg Tablet 1 tab PO QAM PRN (Reason: constipation) 30 Days Qty: 30 RF: 0 cephalexin 500 mg tablet 500 mg PO QID 10 Days Qty: 40 RF: 0 tamsulosin 0.4 mg Capsule 0.4 mg PO QAM 30 Days Qty: 30 RF: 0 Continued acetaminophen [Tylenol] 325 mg Tablet 650 mg PO Q8 PRN (Reason: pain 1-10, temp>101) RF: 0 acetaminophen 650 mg Suppository 650 mg AK Q4 PRN (Reason: temp>101) RF: 0 trazodone 50 mg Tablet 25 mg PO HS RF: 0 metoprolol tartrate 100 mg Tablet 200 mg PO BID RF: 0 levetiracetam 500 mg Tablet 1,000 mg PO BID RF: 0 polyvinyl alcohol [Artificial Tears (polyvin alc)] 1.4 % Drops 1 drp OPHTHALMIC (EYE) BID PRN (Reason: Dry Eyes) RF: 0 ondansetron HCl [Zofran] 4 mg Tablet 4 mg PO Q4 PRN (Reason: Nausea) RF: 0 clonidine HCl 0.3 mg Tablet 0.3 mg PO Q12 RF: 0 phenytoin sodium extended [Dilantin Extended] 100 mg Capsule 100 mg PO BID RF: 0 amlodipine [Norvasc] 10 mg Tablet 10 mg PO DAILY RF: 0 carbidopa-levodopa 10-100 mg Tablet 1 tab PO TID RF: 0 atropine 1 % Drops 2 drp sublingual Q4 PRN (Reason: Excessive Salivation) RF: 0 losartan [Cozaar] 100 mg Tablet 100 mg PO DAILY RF: 0 sorbitol 70 % Solution 15 ml PO BID PRN (Reason: ..) RF: 0 selenium sulfide 1 % Shampoo 1 applic TOPICAL WESA RF: 0 Hemorrhoidal Cream 0.25-1 % Cream 1 applic AK UD PRN (Reason: tylen) RF: 0 cholecalciferol (vitamin D3) [Vitamin D3] 125 mcg (5,000 unit) Tablet 10,000 unit PO DAILY RF: 0 clozapine 100 mg Tablet 300 mg PO DAILY RF: 0 clozapine 50 mg Tablet 50 mg PO DAILY RF: 0 Discharge Orders: Discharge Order (Routine); Ordered 08/30/19 Ordered By: Tresa Dc Admission Data Admit Date/Time: 08/26/19 22:16 Attending Provider: Tresa Dc I. Admit Provider: Oconer,De N. Primary Care Provider: Inga Penn Other Providers: De Holm ; Otis Brunner Other Interventions: Discharge Summary Assessment (RN) Last Done: 08/30/19 12:52 DC Date/Time DO NOT enter until pt leaves facility: 08/30/19 13:18
[2019-08-30 11:18] VITALS: TEMP 98.6; O2SAT 95
--- NOTE | 2019-08-30 11:55 | Urology Progress Note ---
Date of Service August 30, 2019 Assessment & Plan (1) UTI (urinary tract infection): (2) Sepsis: (3) Left ureteral calculus: 63 yo F patient with multiple comorbidities admitted for fever, sepsis, UTI, in the setting of two left UPJ stones measuring up to 6mm. -Patient s/p Left Ureteral Stent placement on 08/27/[address] Solitario Rossi. -Remains Afebrile post procedure. -Kidney function returned to baseline. -UC&S positive for Proteus, recommend antibiotic therapy for total of 14 days. -Preliminary blood culture- no growth after 48 hours. -Consider home with Flomax and pain control as needed. -Will arrange follow up with Urology service outpatient for stone management. Thank you for allowing us to participate in the acute care of Ms. Roberts. Please reconsult us with any additional questions, concerns, or changes in patient status. Subjective Patient drowsy, although response to verbal stimuli HPI difficult to obtain due to cognitive impairment Non-toxic in appearance Appears comfortable Chart Review: Afebrile WBC: 10.91 Hgb: 10.9 Cr: 0.66 UC&S (08/25) growing Proteus, transition to oral Keflex per primary team Blood Cx (08/25) preliminary no growth after 48hrs Review of Systems Constitutional: as per Subjective / HPI Genitourinary: as per Subjective / HPI Neurologic: as per Subjective / HPI Psychiatric: as per Subjective / HPI Physical Exam Constitutional: + frail appearing and comfortable; no acute distress drowsy although responds to verbal stimuli Respiratory: normal respiratory effort; no respiratory distress, no labored breathing and no audible wheezes Skin: normal color no visible rashes, lesions, or wounds Psychiatric: drowsy, oriented to person, responds to verbal stimuli, unable to assess full orientation due to patient falling asleep easily Results & Data Vital Signs (Past 12 Hours) Vital Signs Temp Pulse Pulse Resp BP BP Pulse Ox 08/30/19 11:17 37.0 C 68 20 155/80 H 95 08/30/19 09:37 75 150/87 H 08/30/19 07:44 36.5 C 76 20 191/100 H 97 08/30/19 03:41 36.6 C 72 16 152/80 H 95 08/30/19 01:09 73 172/92 H PG Care Time/CCT Total # of Minutes Spent Total Time Spent with Patient: Total time spent is greater than 50% in coordination of care (as documented) at patient's floor/unit and/or counseling patient: Coding Level of Care Code 84945 Subseq Hosp Care Lvl 2 Diagnoses UTI (urinary tract infection) N30.00 Hematuria presence: without hematuria Urinary tract infection type: acute cystitis Sepsis A41.9 Sepsis acute organ dysfunction status: without acute organ dysfunction Sepsis type: sepsis due to unspecified organism Left ureteral calculus N20.1 (1) UTI (urinary tract infection) Hematuria presence: without hematuria Urinary tract infection type: acute cystitis Qualified Code(s): N30.00 - Acute cystitis without hematuria (2) Sepsis Sepsis acute organ dysfunction status: without acute organ dysfunction Sepsis type: sepsis due to unspecified organism Qualified Code(s): A41.9 - Sepsis, unspecified organism
[2019-08-30 12:53] VITALS: BP 150/87; PULSE 73
[2019-08-30] MEDS ORDERED: cephALEXin 500 MG CAP PO SCH (13:00)
== END 2019-08-30 13:18 | DRG 854 ==
LOC: ED 18:29 → 2W 22:16

== ENCOUNTER 2020-05-09 14:15 | Inpatient (IN) ==
[2020-05-09] MEDS ORDERED: LACTATED RINGER'S 1,000 ML IV SCH ×2 (14:30→17:00)
--- NOTE | 2020-05-09 14:32 | Emergency Department Note ---
History of Present Illness General Chief complaint: Lethargic Stated complaint: Lethargic diarrhea Time Seen by Provider: 05/09/20 14:16 Source: EMS Mode of arrival: EMS Limitations: altered mental status History of Present Illness Provider complaint: Lethargy, diarrhea Onset (ago): unknown This is a 64-year-old female brought in via EMS from a local [facility] facility due to worsening mentation, lethargy, and diarrhea. Patient will open eyes to voice, will nod and shake head to a few questions, otherwise unable to provide additional history. Upon additional investigation, [facility] called charge nurse and reported that patient had recently had an ileus has been on a clear liquid diet and has had several days of nonbloody diarrhea. Patient's had poor p.o. intake overall. Outpatient labs were performed which showed an elevated white blood cell count of 20. EMS reported patient had stable vital signs in route. Had received 1 L of IV fluids during the transportation, and they had just hung and started a second liter. Pt seen during a time of high acuity and national emergency pandemic while wearing PPE. Home Medications Medication Instructions Recorded Confirmed Type Hemorrhoidal Cream 1 applic [place] DIRECTED PRN 08/26/19 05/09/20 History acetaminophen 650 mg [place] Q4H PRN MDD 3 GMS 08/26/19 05/09/20 History APAP/24 HOURS acetaminophen [Tylenol] 650 mg PO Q8H PRN MDD 3 GMS 08/26/19 05/09/20 History APAP/24 HOURS amlodipine [Norvasc] 10 mg PO HS 08/26/19 05/09/20 History atropine 2 drp SUBLINGUAL Q4H PRN 08/26/19 05/09/20 History carbidopa-levodopa 1 tab PO TID 08/26/19 05/09/20 History clonidine HCl 0.3 mg PO Q8H 08/26/19 05/09/20 History levetiracetam 750 mg PO BID 08/26/19 05/09/20 History losartan [Cozaar] 100 mg PO DAILY 08/26/19 05/09/20 History metoprolol tartrate 200 mg PO Q12H 08/26/19 05/09/20 History phenytoin sodium extended 100 mg PO BID 08/26/19 05/09/20 History [Dilantin Extended] polyvinyl alcohol [Artificial 1 drp OPHTHALMIC (EYE) BID 08/26/19 05/09/20 History Tears (polyvin alc)] selenium sulfide 1 applic TOPICAL 2XWK 08/26/19 05/09/20 History sorbitol 30 ml PO BID 08/26/19 05/09/20 History clozapine 50 mg PO DAILY 08/27/19 05/09/20 History clozapine 100 mg PO DAILY 08/27/19 05/09/20 History 2 Surendra/Cc Supplement 1 ea QID 05/09/20 05/09/20 History Nutritional Frozen Dessert 1 ea PO BID 05/09/20 History bisacodyl [Dulcolax (bisacodyl)] 10 mg [place] DIRECTED PRN 05/09/20 05/09/20 History cholecalciferol (vitamin D3) 10,000 unit PO DAILY 05/09/20 05/09/20 History [Vitamin D3] clozapine 200 mg PO DAILY 05/09/20 05/09/20 History hydrochlorothiazide 25 mg PO DAILY 05/09/20 05/09/20 History magnesium hydroxide [Milk of 30 ml PO DAILY PRN 05/09/20 05/09/20 History Magnesia] ondansetron [Zofran ODT] 4 mg TRANSLINGUAL Q4H PRN 05/09/20 05/09/20 History potassium chloride 20 meq PO QAM 05/09/20 05/09/20 History sennosides-docusate sodium [Senna 2 tab PO BID 05/09/20 05/09/20 History Plus] sodium phosphates [Fleet Enema] 118 ml [place] DIRECTED PRN 05/09/20 05/09/20 His tory tamsulosin 0.4 mg PO DAILY 05/09/20 05/09/20 History Allergies Allergy/AdvReac Type Severity Reaction Status Date / Time metformin Allergy Mild NAUSEA Verified 05/09/20 18:10 Cipro Allergy Unknown unknown Unverified 07/01/14 13:34 ciprofloxacin Allergy Unknown Unknown Verified 05/09/20 18:10 Past Med/Surg History Medical History Hypertension Seizure Seizure disorder Social History Smoking Status: Never smoker Hx Alcohol Use: No Hx Substance Use: No Preferred Language: Mauritian Communication Ability: Impaired Facility Administrator Required: No Beliefs That Will Affect Care: None Current Living Situation: [facility] Current Living Situation Comment: [facility] current occupational status: disabled Other Information That Helps Us Care for You: No Feels Safe at Home: Yes Safety Concerns: Feels Safe At This Time Assistive Devices: Walker Review of Systems Unobtainable due to cognitive status Physical Exam Vital Signs Vital Signs - 24 hr 05/09/20 14:30 05/09/20 14:40 05/09/20 14:45 Temperature 36.7 C Temperature Source Rectal Pulse Rate 68 67 71 Pulse Rate from SpO2 Sensor 67 71 Respiratory Rate 13 14 15 Respiratory Effort / Characteristics Non-Labored Blood Pressure 100/65 100/69 121/81 Blood Pressure Mean 69 79 94 Blood Pressure Position Lying Pulse Oximetry 98 99 100 Oxygen Delivery Method Room Air Sepsis Recent Fever Within 48 Hours No Sepsis New/Unexplained Change in Mental Status Yes Sepsis Action Taken by Nursing No Action Required 05/09/20 15:00 05/09/20 15:01 05/09/20 15:12 Temperature Temperature Source Pulse Rate 70 69 Pulse Rate from SpO2 Sensor 70 69 Respiratory Rate 19 15 Respiratory Effort / Characteristics Blood Pressure 110/80 Blood Pressure Mean 91 Blood Pressure Position Pulse Oximetry 100 100 100 Oxygen Delivery Method Sepsis Recent Fever Within 48 Hours Sepsis New/Unexplained Change in Mental Status Sepsis Action Taken by Nursing 05/09/20 15:15 05/09/20 15:16 05/09/20 15:30 Temperature Temperature Source Pulse Rate 68 67 70 Pulse Rate from SpO2 Sensor 68 68 71 Respiratory Rate 14 18 19 Respiratory Effort / Characteristics Blood Pressure 134/78 Blood Pressure Mean 94 Blood Pressure Position Pulse Oximetry 100 100 100 Oxygen Delivery Method Sepsis Recent Fever Within 48 Hours Sepsis New/Unexplained Change in Mental Status Sepsis Action Taken by Nursing 05/09/20 15:31 05/09/20 15:32 05/09/20 15:48 Temperature Temperature Source Pulse Rate 69 70 69 Pulse Rate from SpO2 Sensor 70 70 69 Respiratory Rate 14 13 15 Respiratory Effort / Characteristics Blood Pressure 132/78 121/70 Blood Pressure Mean 91 84 Blood Pressure Position Pulse Oximetry 100 99 99 Oxygen Delivery Method Sepsis Recent Fever Within 48 Hours Sepsis New/Unexplained Change in Mental Status Sepsis Action Taken by Nursing 05/09/20 16:00 05/09/20 16:01 05/09/20 16:15 Temperature Temperature Source Pulse Rate 70 70 69 Pulse Rate from SpO2 Sensor 69 69 Respiratory Rate 17 17 16 Respiratory Effort / Characteristics Blood Pressure 156/88 H 123/74 Blood Pressure Mean 105 91 Blood Pressure Position Pulse Oximetry 100 100 Oxygen Delivery Method Sepsis Recent Fever Within 48 Hours Sepsis New/Unexplained Change in Mental Status Sepsis Action Taken by Nursing 05/09/20 16:30 05/09/20 16:31 05/09/20 16:45 Temperature Temperature Source Pulse Rate 69 69 70 Pulse Rate from SpO2 Sensor 69 69 Respiratory Rate 17 13 16 Respiratory Effort / Characteristics Blood Pressure 138/79 135/88 Blood Pressure Mean 92 100 Blood Pressure Position Pulse Oximetry 99 99 Oxygen Delivery Method Sepsis Recent Fever Within 48 Hours Sepsis New/Unexplained Change in Mental Status Sepsis Action Taken by Nursing 05/09/20 17:06 Temperature Temperature Source Pulse Rate 70 Pulse Rate from SpO2 Sensor 70 Respiratory Rate 13 Respiratory Effort / Characteristics Blood Pressure Blood Pressure Mean Blood Pressure Position Pulse Oximetry 99 Oxygen Delivery Method Sepsis Recent Fever Within 48 Hours Sepsis New/Unexplained Change in Mental Status Sepsis Action Taken by Nursing GENERAL: ill appearing, minimal responsive, pale, minimal awareness of surroundings EYE EXAM: normal conjunctiva, PERRL and EOM's grossly intact, no scleral icterus OROPHARYNX: no exudate, no erythema, lips, buccal mucosa, and tongue normal and mucous membranes are dry NECK: supple, no nuchal rigidity, no adenopathy, non-tender LUNGS: Clear to auscultation. Normal chest wall mechanics, no w/r/r HEART: no murmurs, S1 normal and S2 normal ABDOMEN: abdomen soft, non-tender, normo-active bowel sounds, no masses, no rebound or guarding. BACK: Back is symmetrical on inspection and there is no deformity, no midline tenderness, no CVA tenderness. SKIN: no rashes and no bruising, no petechiae UPPER EXTREMITIES: upper extremities are grossly normal. nml pulses b/l, no evidence of trauma LOWER EXTREMITIES: No pitting edema. nml pulses b/l, no evidence of trauma NEURO EXAM: pt opens eyes to voice, moans, nods heads to simple questions, attempts to localize painful stimuli, cannot cooperate for any additional neuro testing Course Course 1440: Nursing checked rectal temperature, and was concerned about possible blood in the stool. A bedside Hemoccult test was performed by nursing staff and was positive. This was shown to me at bedside. 1522: Difficulty obtaining additional IV access. IV fluids still running. Patient has not yet received additional medication orders that were placed and labs are still pending. 1740: Patient now markedly more awake and alert, blood pressure has been stable since receiving a total of 3 L of IV fluids and fluids are now back down to maintenance. Additional antibiotics and Protonix drip hanging. Patient states she feels weak and tired, denies any history of C. difficile, but is markedly more alert and improved compared to my initial evaluation. Patient states she had not previously had diarrhea with her known coronavirus. Administered Medications Amlodipine Besylate (Amlodipine Besylate 5 Mg Tab) 5 mg PO HS CHINTAN Stop: 06/10/20 20:59 Last Admin: 05/11/20 17:49 Dose: 5 mg Documented by: [id number] Carbidopa/Levodopa (Carbidopa/Levodop 10/100mg Tab) 1 tab PO TID CHINTAN Stop: 06/08/20 22:16 Last Admin: 05/11/20 14:18 Dose: Not Given Documented by: [id number] Admin: 05/11/20 10:00 Dose: Not Given Documented by: [id number] Admin: 05/10/20 20:05 Dose: 1 tab Documented by: [id number] Admin: 05/10/20 13:09 Dose: 1 tab Documented by: [id number] Admin: 05/10/20 09:08 Dose: Not Given Documented by: [id number] Admin: 05/09/20 23:43 Dose: 1 tab Documented by: [id number] Clozapine (Clozapine 25 Mg Tab) 50 mg PO DAILY CHINTAN Stop: 06/09/20 08:59 Last Admin: 05/11/20 10:00 Dose: Not Given Documented by: [id number] Admin: 05/10/20 09:10 Dose: Not Given Documented by: [id number] Clozapine (Clozapine 100 Mg Tab) 300 mg PO DAILY CHINTAN Stop: 06/09/20 08:59 Last Admin: 05/11/20 10:00 Dose: Not Given Documented by: [id number] Admin: 05/10/20 09:10 Dose: Not Given Documented by: [id number] Metronidazole (Flagyl) 500 mg in 100 mls @ 100 mls/hr IV Q8H CHINTAN Stop: 05/20/20 00:00 Last Infusion: 05/11/20 17:49 Dose: 0 mls/hr Documented by: [id number] Admin: 05/11/20 16:24 Dose: 100 mls/hr Documented by: [id number] Infusion: 05/11/20 10:57 Dose: 0 mls/hr Documented by: [id number] Admin: 05/11/20 09:57 Dose: 100 mls/hr Documented by: [id number] Infusion: 05/11/20 01:16 Dose: 0 mls/hr Documented by: [id number] Admin: 05/10/20 23:57 Dose: 100 mls/hr Documented by: [id number] Infusion: 05/10/20 18:26 Dose: 0 mls/hr Documented by: [id number] Admin: 05/10/20 17:04 Dose: 100 mls/hr Documented by: [id number] Infusion: 05/10/20 10:09 Dose: 0 mls/hr Documented by: [id number] Admin: 05/10/20 08:59 Dose: 100 mls/hr Documented by: [id number] Infusion: 05/10/20 01:27 Dose: 0 mls/hr Documented by: [id number] Admin: 05/09/20 23:46 Dose: 100 mls/hr Documented by: [id number] Cefepime HCl 2,000 mg/ Syringe 20 mls @ 5.5 mls/min IV Q8@0400,1200,2000 REPLACED BY [facility]; Protocol Stop: 05/20/20 03:59 Last Admin: 05/11/20 13:31 Dose: 5.5 mls/min Documented by: [id number] Levetiracetam (Levetiracetam 250 Mg Tab) 750 mg PO BID REPLACED BY [facility] Stop: 06/08/20 22:59 Last Admin: 05/11/20 10:00 Dose: Not Given Documented by: [id number] Admin: 05/10/20 20:05 Dose: 750 mg Documented by: [id number] Admin: 05/10/20 09:09 Dose: Not Given Documented by: [id number] Admin: 05/09/20 23:43 Dose: 750 mg Documented by: [id number] Metoprolol Tartrate (Metoprolol Tartrate 50 Mg Tab) 50 mg PO Q12 REPLACED BY [facility] Stop: 06/08/20 22:59 Last Admin: 05/11/20 10:00 Dose: Not Given Documented by: [id number] Admin: 05/10/20 20:08 Dose: 50 mg Documented by: [id number] Admin: 05/10/20 09:09 Dose: Not Given Documented by: [id number] Admin: 05/09/20 23:44 Dose: 50 mg Documented by: [id number] Phenytoin Sodium (Phenytoin Sodium Er 100 Mg Cap) 100 mg PO BID CHINTAN Stop: 06/08/20 22:59 Last Admin: 05/11/20 10:00 Dose: Not Given Documented by: [id number] Admin: 05/10/20 20:06 Dose: 100 mg Documented by: [id number] Admin: 05/10/20 09:09 Dose: Not Given Documented by: [id number] Admin: 05/09/20 23:42 Dose: 100 mg Documented by: [id number] Discontinued Medications Lactated Ringer's (Lr) 1,000 mls @ 999 mls/hr IV .Q1H1M CHINTAN Stop: 05/09/20 15:30 Last Infusion: 05/09/20 17:16 Dose: 0 mls/hr Documented by: [id number] Admin: 05/09/20 15:48 Dose: 999 mls/hr Documented by: [id number] Pantoprazole Sodium (Protonix Bolus/Drip) 0 mls @ 1 mls/hr IV ONE STA Stop: 05/09/20 14:59 Last Admin: 05/09/20 15:48 Dose: 1 mls/hr Documented by: [id number] Pantoprazole Sodium 40 mg/ (Dextrose) 100 mls @ 20 mls/hr IV Q5H CHINTAN Stop: 06/08/20 15:13 Last Infusion: 05/11/20 16:20 Dose: 0 mg/hr, 0 mls/hr Documented by: [id number] Admin: 05/11/20 16:19 Dose: Not Given Documented by: [id number] Infusion: 05/11/20 16:10 Dose: 8 mg/hr, 20 mls/hr Documented by: [id number] Admin: 05/11/20 10:13 Dose: 8 mg/hr, 20 mls/hr Documented by: [id number] Infusion: 05/11/20 09:53 Dose: 0 mg/hr, 0 mls/hr Documented by: [id number] Admin: 05/11/20 04:53 Dose: 8 mg/hr, 20 mls/hr Documented by: [id number] Infusion: 05/11/20 04:53 Dose: 8 mg/hr, 20 mls/hr Documented by: [id number] Admin: 05/11/20 00:01 Dose: 8 mg/hr, 20 mls/hr Documented by: [id number] Infusion: 05/11/20 00:01 Dose: 8 mg/hr, 20 mls/hr Documented by: [id number] Admin: 05/10/20 19:16 Dose: 8 mg/hr, 20 mls/hr Documented by: [id number] Infusion: 05/10/20 18:25 Dose: 0 mg/hr, 0 mls/hr Documented by: [id number] Admin: 05/10/20 13:09 Dose: 8 mg/hr, 20 mls/hr Documented by: [id number] Infusion: 05/10/20 13:09 Dose: 8 mg/hr, 20 mls/hr Documented by: [id number] Admin: 05/10/20 11:17 Dose: Not Given Documented by: [id number] Admin: 05/10/20 08:16 Dose: 8 mg/hr, 20 mls/hr Documented by: [id number] Infusion: 05/10/20 08:16 Dose: 8 mg/hr, 20 mls/hr Documented by: [id number] Admin: 05/10/20 03:14 Dose: 8 mg/hr, 20 mls/hr Documented by: [id number] Infusion: 05/10/20 02:29 Dose: 8 mg/hr, 20 mls/hr Documented by: [id number] Admin: 05/09/20 21:29 Dose: 8 mg/hr, 20 mls/hr Documented by: [id number] Infusion: 05/09/20 21:17 Dose: 8 mg/hr, 20 mls/hr Documented by: [id number] Admin: 05/09/20 16:17 Dose: 8 mg/hr, 20 mls/hr Documented by: [id number] Pantoprazole Sodium 80 mg/ (Dextrose) 120 mls @ 400 mls/hr IV NOW ONE Stop: 05/09/20 15:15 Last Infusion: 05/09/20 16:15 Dose: 0 mls/hr Documented by: [id number] Admin: 05/09/20 15:48 Dose: 400 mls/hr Documented by: [id number] Vancomycin HCl 1,500 mg/ (Sodium Chloride) 530 mls @ 200 mls/hr IV NOW ONE Stop: 05/09/20 17:36 Last Infusion: 05/09/20 19:39 Dose: 0 mls/hr Documented by: [id number] Admin: 05/09/20 16:14 Dose: 200 mls/hr Documented by: [id number] Cefepime HCl (Maxipime) 2,000 mg in 20 mls @ 5 mls/min IV NOW STA Stop: 05/09/20 15:01 Last Admin: 05/09/20 15:57 Dose: 5 mls/min Documented by: [id number] Lactated Ringer's (Lr) 1,000 mls @ 125 mls/hr IV .Q8H [facility]INTAN Stop: 06/08/20 16:59 Last Infusion: 05/09/20 22:35 Dose: 0 mls/hr Documented by: [id number] Admin: 05/09/20 18:48 Dose: 125 mls/hr Documented by: [id number] Cefepime HCl 2,000 mg/ Syringe 20 mls @ 5.5 mls/min IV Q12H CHINTAN; Protocol Stop: 05/20/20 03:59 Last Admin: 05/11/20 04:25 Dose: 5.5 mls/min Documented by: [id number] Admin: 05/10/20 17:03 Dose: 5.5 mls/min Documented by: [id number] Admin: 05/10/20 03:36 Dose: 5.5 mls/min Documented by: [id number] Potassium Chloride/Sodium Chloride (Normal Saline W/20 Meq Kcl) 20 meq in 1,000 mls @ 100 mls/hr IV .Q10H CHINTAN Stop: 06/08/20 22:16 Last Infusion: 05/11/20 16:20 Dose: 0 mls/hr Documented by: [id number] Admin: 05/11/20 16:19 Dose: Not Given Documented by: [id number] Infusion: 05/11/20 16:09 Dose: 100 mls/hr Documented by: [id number] Infusion: 05/11/20 10:57 Dose: 100 mls/hr Documented by: [id number] Infusion: 05/11/20 09:58 Dose: 0 mls/hr Documented by: [id number] Admin: 05/11/20 06:00 Dose: 100 mls/hr Documented by: [id number] Infusion: 05/11/20 05:17 Dose: 100 mls/hr Documented by: [id number] Admin: 05/10/20 19:17 Dose: 100 mls/hr Documented by: [id number] Infusion: 05/10/20 18:59 Dose: 100 mls/hr Documented by: [id number] Admin: 05/10/20 08:59 Dose: 100 mls/hr Documented by: [id number] Infusion: 05/10/20 08:59 Dose: 100 mls/hr Documented by: [id number] Admin: 05/09/20 23:45 Dose: 100 mls/hr Documented by: [id number] Vancomycin HCl 1,000 mg/ (Sodium Chloride) 270 mls @ 135 mls/hr IV Q12H CHINTAN Stop: 05/20/20 03:59 Last Infusion: 05/11/20 06:30 Dose: 0 mls/hr Documented by: [id number] Admin: 05/11/20 04:23 Dose: 135 mls/hr Documented by: [id number] Infusion: 05/10/20 19:18 Dose: 0 mls/hr Documented by: [id number] Admin: 05/10/20 17:03 Dose: 135 mls/hr Documented by: [id number] Infusion: 05/10/20 05:55 Dose: 0 mls/hr Documented by: [id number] Admin: 05/10/20 03:35 Dose: 135 mls/hr Documented by: [id number] Ioversol (Ioversol 100ml) 94 ml IV ONCE ONE Stop: 05/09/20 17:05 Last Admin: 05/09/20 17:05 Dose: 94 ml Documented by: [id number] Critical Care Time Critical Care Time: Yes Total Critical Care Time: 48 Critical care of 48 min performed to assess and manage high likelihood of life- threatening ams and sepsis, involving labs and imaging performed with assessment to evaluate sepsis and ams diagnosis with frequent reassessment. This time includes bedside time, treatment discussions with patient/family/consultants, documentation time and excludes procedure time. Medical Decision Making Differential Diagnosis Differential Diagnosis includes but is not limited to dehydration, stroke, anemia, hypoglycemia, hyponatremia, hypernatremia, urinary tract infection, pneumonia, bronchitis, sepsis, gastroenteritis, additional abdominal pathology, metabolic abnormalities and infections. Medical Records Attestation: I reviewed the patient's medical records. Home Medications Current Medication List: was personally reviewed by me Laboratory Data Attestation: I reviewed the patient's lab results. Result diagrams: 05/11/20 03:27 05/11/20 03:27 Lab Results 05/09/20 05/09/20 05/09/20 Range/Units 14:55 15:46 15:46 WBC 14.37 H (4.8-10.8) K/uL RBC 3.76 L (4.2-5.4) M/uL Hgb 11.3 L (12.0-16.0) g/dL Hct 34.5 L (37-47) % MCV 91.8 (80-100) fL MCH 30.1 (25-34) pg MCHC 32.8 (32-36) g/dL RDW Std Deviation 44.8 (36.4-46.3) fL RDW Coeff of [place] 13.4 (11.5-14.5) % Plt Count 372 (130-400) K/uL MPV 9.4 (7.4-10.4) fL Immature Gran % (Auto) 0.8 % Neut % (Auto) 77.8 % Lymph % (Auto) 13.8 % [place] % (Auto) 7.2 % Eos % (Auto) 0.3 % Baso % (Auto) 0.1 % Neut # (Auto) 11.19 H (1.4-6.5) K/uL Lymph # (Auto) 1.98 (1.2-3.4) K/uL [place] # (Auto) 1.03 H (0.11-0.59) K/uL Eos # (Auto) 0.04 (0-0.5) K/uL Baso # (Auto) 0.01 (0-0.2) K/uL Immature Gran # (Auto) 0.12 H (0.00-0.02) K/uL PT 11.4 (9.0-12.0) Seconds INR 1.1 (0.9-1.1) APTT 28.5 (21.0-31.0) Seconds PTT Ratio 1.0 Sodium (136-145) mmol/L Potassium (3.5-5.1) mmol/L Chloride (98-107) mmol/L Carbon Dioxide (21-32) mmol/L Anion Gap (3-11) BUN (7-18) mg/dl Creatinine (0.6-1.2) mg/dl Est Cr Clr Drug Dosing ml/min Est GFR ( Amer) Est GFR (Non-Af Amer) BUN/Creatinine Ratio (10-20) Glucose (70-99) mg/dl Lactate (0.4-2.0) mmol/L Calcium (8.5-10.1) mg/dl Magnesium (1.8-2.4) mg/dl Total Bilirubin (0.2-1) mg/dl AST (15-37) U/L ALT (12-78) U/L Alkaline Phosphatase (45-117) U/L Troponin I (0-0.045) ng/ml Total Protein (6.4-8.2) gm/dl Albumin (3.4-5.0) gm/dl Globulin (2.5-4.0) gm/dl Albumin/Globulin Ratio (0.9-2) Procalcitonin (0-0.5) ng/ml Urine Color Dark Yellow Urine Appearance Turbid A (Clear) Urine pH 6.5 (4.5-7.5) Ur Specific [place] 1.021 (1.000-1.030) Urine Protein 1+ H (Negative) Urine Glucose (UA) Negative (Negative) Urine Ketones Trace H (Negative) Urine Blood 3+ H (Negative) Urine Nitrite Negative (Negative) Urine Bilirubin Negative (Negative) Urine Urobilinogen Negative (Negative) Ur Leukocyte Esterase 3+ H (Negative) Urine WBC (Auto) >30 H (0-5) /hpf Urine RBC (Auto) >30 H (0-4) /hpf U Hyaline Cast (Auto) 1-5 (0-5) /lpf U Epithel Cells (Auto) 20-30 H (0-5) /lpf Urine Bacteria (Auto) 4+ H (Negative) Urine Yeast Present A (None Prsent) COVID-19 Eval Order SARS-CoV-2, RNA, NAAT (NEGATIVE) Blood Type Antibody Screen 05/09/20 05/09/20 05/09/20 Range/Units 15:46 15:46 15:46 WBC (4.8-10.8) K/uL RBC (4.2-5.4) M/uL Hgb (12.0-16.0) g/dL Hct (37-47) % MCV (80-100) fL MCH (25-34) pg MCHC (32-36) g/dL RDW Std Deviation (36.4-46.3) fL RDW Coeff of [place] (11.5-14.5) % Plt Count (130-400) K/uL MPV (7.4-10.4) fL Immature Gran % (Auto) % Neut % (Auto) % Lymph % (Auto) % [place] % (Auto) % Eos % (Auto) % Baso % (Auto) % Neut # (Auto) (1.4-6.5) K/uL Lymph # (Auto) (1.2-3.4) K/uL [place] # (Auto) (0.11-0.59) K/uL Eos # (Auto) (0-0.5) K/uL Baso # (Auto) (0-0.2) K/uL Immature Gran # (Auto) (0.00-0.02) K/uL PT (9.0-12.0) Seconds INR (0.9-1.1) APTT (21.0-31.0) Seconds PTT Ratio Sodium 139 (136-145) mmol/L Potassium 3.4 L (3.5-5.1) mmol/L Chloride 108 H (98-107) mmol/L Carbon Dioxide 28 (21-32) mmol/L Anion Gap 3.0 (3-11) BUN 51 H (7-18) mg/dl Creatinine 0.86 (0.6-1.2) mg/dl Est Cr Clr Drug Dosing 67.5 ml/min Est GFR ( Amer) 83.3 Est GFR (Non-Af Amer) 71.9 BUN/Creatinine Ratio 59.5 H (10-20) Glucose 95 (70-99) mg/dl Lactate 0.9 (0.4-2.0) mmol/L Calcium 8.2 L (8.5-10.1) mg/dl Magnesium 2.6 H (1.8-2.4) mg/dl Total Bilirubin 0.4 (0.2-1) mg/dl AST 16 (15-37) U/L ALT 13 (12-78) U/L Alkaline Phosphatase 100 (45-117) U/L Troponin I < 0.015 (0-0.045) ng/ml Total Protein 6.9 (6.4-8.2) gm/dl Albumin 2.0 L (3.4-5.0) gm/dl Globulin 4.9 H (2.5-4.0) gm/dl Albumin/Globulin Ratio 0.4 L (0.9-2) Procalcitonin 0.24 (0-0.5) ng/ml Urine Color Urine Appearance (Clear) Urine pH (4.5-7.5) Ur Specific [place] (1.000-1.030) Urine Protein (Negative) Urine Glucose (UA) (Negative) Urine Ketones (Negative) Urine Blood (Negative) Urine Nitrite (Negative) Urine Bilirubin (Negative) Urine Urobilinogen (Negative) Ur Leukocyte Esterase (Negative) Urine WBC (Auto) (0-5) /hpf Urine RBC (Auto) (0-4) /hpf U Hyaline Cast (Auto) (0-5) /lpf U Epithel Cells (Auto) (0-5) /lpf Urine Bacteria (Auto) (Negative) Urine Yeast (None Prsent) COVID-19 Eval Order SARS-CoV-2, RNA, NAAT (NEGATIVE) Blood Type Antibody Screen 05/09/20 05/09/20 05/09/20 Range/Units 15:46 18:20 18:20 WBC (4.8-10.8) K/uL RBC (4.2-5.4) M/uL Hgb (12.0-16.0) g/dL Hct (37-47) % MCV (80-100) fL MCH (25-34) pg MCHC (32-36) g/dL RDW Std Deviation (36.4-46.3) fL RDW Coeff of [place]odia (11.5-14.5) % Plt Count (130-400) K/uL MPV (7.4-10.4) fL Immature Gran % (Auto) % Neut % (Auto) % Lymph % (Auto) % [place] % (Auto) % Eos % (Auto) % Baso % (Auto) % Neut # (Auto) (1.4-6.5) K/uL Lymph # (Auto) (1.2-3.4) K/uL [place] # (Auto) (0.11-0.59) K/uL Eos # (Auto) (0-0.5) K/uL Baso # (Auto) (0-0.2) K/uL Immature Gran # (Auto) (0.00-0.02) K/uL PT (9.0-12.0) Seconds INR (0.9-1.1) APTT (21.0-31.0) Seconds PTT Ratio Sodium (136-145) mmol/L Potassium (3.5-5.1) mmol/L Chloride (98-107) mmol/L Carbon Dioxide (21-32) mmol/L Anion Gap (3-11) BUN (7-18) mg/dl Creatinine (0.6-1.2) mg/dl Est Cr Clr Drug Dosing ml/min Est GFR ( Amer) Est GFR (Non-Af Amer) BUN/Creatinine Ratio (10-20) Glucose (70-99) mg/dl Lactate (0.4-2.0) mmol/L Calcium (8.5-10.1) mg/dl Magnesium (1.8-2.4) mg/dl Total Bilirubin (0.2-1) mg/dl AST (15-37) U/L ALT (12-78) U/L Alkaline Phosphatase (45-117) U/L Troponin I (0-0.045) ng/ml Total Protein (6.4-8.2) gm/dl Albumin (3.4-5.0) gm/dl Globulin (2.5-4.0) gm/dl Albumin/Globulin Ratio (0.9-2) Procalcitonin (0-0.5) ng/ml Urine Color Urine Appearance (Clear) Urine pH (4.5-7.5) Ur Specific [place] (1.000-1.030) Urine Protein (Negative) Urine Glucose (UA) (Negative) Urine Ketones (Negative) Urine Blood (Negative) Urine Nitrite (Negative) Urine Bilirubin (Negative) Urine Urobilinogen (Negative) Ur Leukocyte Esterase (Negative) Urine WBC (Auto) (0-5) /hpf Urine RBC (Auto) (0-4) /hpf U Hyaline Cast (Auto) (0-5) /lpf U Epithel Cells (Auto) (0-5) /lpf Urine Bacteria (Auto) (Negative) Urine Yeast (None Prsent) COVID-19 Eval Order Covid19 IDNow [facility] SARS-CoV-2, RNA, NAAT NEGATIVE (NEGATIVE) Blood Type O Positive Antibody Screen NEGATIVE Imaging Data Radiologist's Impression: XR chest 1V portable HISTORY: 64 years-old Female SEPSIS acute sepsis. COMPARISON: Chest radiograph 08/26/2019 TECHNIQUE: Portable AP view of the chest FINDINGS: Patient is rotated. [place] projects over the left lung. Cardiac silhouette is upper limits of normal in size. No pneumothorax, pleural effusion, airspace consolidation or overt pulmonary edema. Mild right hemidiaphragmatic elevation. Increased hazy density at the left lung is likely projectional/secondary to summation density. Degenerative changes of the shoulders and spine. Left shoulder rotator cuff calcific tendinosis. Mid thoracic dextroscoliosis. Cholecystectomy. IMPRESSION: No acute process. ACT 112: Negative or not required by law. The above report was generated using voice recognition software. It may contain grammatical, syntax or spelling errors. Electronically signed by: Romel Tomlinson M.D. 05/09/2020 3:35 PM ABDOMEN AND PELVIS CT WITH IV CONTRAST CT DOSE: 476.85 mGy.cm HISTORY: Acute hypertension with GI bleed and mid abdominal pain diarrhea, gi bleed, hypotension TECHNIQUE: Multiaxial CT images of the abdomen and pelvis were performed following the IV administration of 94 cc of Optiray 320, A dose lowering technique was utilized adhering to the principles of ALARA. COMPARISON STUDY: CT abdomen and pelvis 08/26/2019 FINDINGS: Chronic right hemidiaphragmatic elevation. Mild right lung base atelectasis and bronchial wall thickening. There is no pneumatosis or pneumoperitoneum. Coronary artery calcifications. Unremarkable spleen. Mild generalized pancreatic atrophy. Unremarkable adrenal glands. Cholecystectomy with likely postsurgical extrahepatic and extrahepatic biliary ductal dilation. The liver is otherwise unremarkable. Patency of the hepatic and portal veins. Not obstructing bilateral nephrolithiasis with calculi measuring up to 7 mm on the right and 8 mm on the left. Delayed left-sided nephrogram with mild left-sided hydroureteronephrosis and mild urothelial thickening of the collecting system, pelvis and ureter. A left-sided ureteral stent appears to be in satisfactory positioning. No ureteral calculi are identified. A stent coiled around a Pride catheter balloon. Irregular wall thickening of the bladder is most pronounced on the anterior superior margin measuring up to 3.2 cm transversely. Heterogeneous uterus. Cystic foci of the right adnexum measuring up to 1.3 cm. Prominent left adnexum. Calcified plaque of the abdominal aorta without aneurysm. Nonspecific prominent lymph nodes of the retroperitoneum measuring up to 8 mm. Small hiatal hernia. There is suggested malrotation of the small bowel. Moderate circumferential wall thickening of the rectum and distal sigmoid colon are noted with perirectal stranding. Additionally there is a mild wall thickening are noted in the ascending, transverse and descending colon. Moderate fecal retention. The appendix is not diagnostically visualized. Unremarkable soft tissues. Degenerative changes of the spine, pelvis and hips. No suspicious bone lesions. IMPRESSION: 1. Rectal and colon wall thickening as above suggestive of a nonspecific proctocolitis with reactive perirectal stranding. The degree of wall thickening is most pronounced within the rectum. Findings could be correlated with a follow-up colonoscopy. 2. Mild left-sided hydroureteronephrosis with delayed nephrogram and left ureteral stent. Mild left-sided urothelial enhancement may be reactive or reflect superimposed infection. 3. Nonobstructing bilateral nephrolithiasis. 4. Irregular masslike thickening of the anterior superior urinary bladder is not well evaluated secondary to partially decompressed bladder. This finding could be correlated with cystoscopy to exclude underlying urothelial malignancy. 5. Additional findings as above. ACT 112: Negative or not required by law. The above report was generated using voice recognition software. It may contain grammatical, syntax or spelling errors. Electronically signed by: Romel Tomlinson M.D. 05/09/2020 5:30 PM ECG Data Attestation: I personally reviewed and interpreted this ECG as follows: Indication: + altered mental status Rate (beats per minute): 67 Rhythm: + normal sinus ECG Intervals/blocks: + Normal QRS and + Normal QT ECG [place]: + Normal ECG ST segments: + Nonspecific ST abnormalities MDM Narrative Ill appearing [place] from local [place] with recent positive COVID test who presents due to lethargy and worsening diarrhea per Ms report. Pt underwent outpt labs yesterday which were reviewed and showed significant leukocytosis. No cultures seen from that blood draw. Pt hypotensive, pale and markedly ill appearing on arrival. EMS had given 1 L nss and another liter was just starting. I opened this liter up thru their peripheral IV during my initial assessment. Pt was difficult to obtain additional IV access on. Several attempts made by staff here and IV team called. Ultimately another line was placed. THankfully her IVf were continued including a liter of LR I initially ordered as part of the sepsis set and her BP improved and stabilized. Pt with diarrhea here, heme tested by nursing staff and was positive. Protonix drip started given unclear etiology and wasn't bright red bleeding initially. Broad spectrum antibiotics started. CXR without clear etiology and once Bp stabilized, pt sent to CT for abdominal imaging. Pt found to have colitis/proctocolitis. Stool cultures and c.diff were already pending. With rehydration, pt's mentation improved and pt was able to answer questions. Pt was rechecked multiple times and was able to answer more questions. Pt c/o abdominal pain, nausea, weakness, dizziness, denied diarrhea with her initial covid but stated it started a day or two ago. Pt made aware of all results and need for additional inpatient treatment. Protonix drip stopped given lower Gi findings were most likely the source of bleeding. CAse discussed with the hospitalist. Pt not anticoagulated. It was noted on CT pt had an indwelling ureteral stent and UA was abnormal also. Culture pending. It is unclear based on records why pt's stent was left in so long. An order was placed for continuous cardiac monitoring. The monitor shows a rate of 70 with _normal sinus_ rhythm. Impression & Plan Sepsis, UTI (urinary tract infection), S/P ureteral stent placement, Pr octocolitis with rectal bleeding, GI bleed, AMS (altered mental status) Discharge Plan Visit Data Chief Complaint: Lethargic Stated Complaint: Lethargic diarrhea ED Provider: Astrid Salinas Discharge Problem: Sepsis, UTI (urinary tract infection), S/P ureteral stent placement, Proctocolitis with rectal bleeding, GI bleed, AMS (altered mental status) Patient Disposition: Admitted As Inpatient Discharge Instructions Interventions: ED Discharge Assessment Last Done: 05/09/20 22:00 Discharge Problem: Sepsis Qualifiers: Sepsis type: sepsis due to unspecified organism Sepsis acute organ dysfunction status: with acute organ dysfunction Severe sepsis acute organ dysfunction type: encephalopathy Severe sepsis shock status: without septic shock Qualified Code(s): A41.9 - Sepsis, unspecified organism UTI (urinary tract infection) Qualifiers: Urinary tract infection type: site unspecified Hematuria presence: with hematu bill Qualified Code(s): N39.0 - Urinary tract infection, site not specified GI bleed Qualifiers: GI bleed type/associated pathology: unspecified gastrointestinal hemorrhage type Qualified Code(s): K92.2 - Gastrointestinal hemorrhage, unspecified AMS (altered mental status) Qualifiers: Altered mental status type: unspecified Qualified Code(s): R41.82 - Altered mental status, unspecified
[2020-05-09] MEDS ORDERED: PANTOprazole 80 MG in DEXTROSE 5% 100 ML IV ONE (14:58)
[2020-05-09] MEDS ORDERED: VANCOMYCIN HCL 1,500 MG in SODIUM CHLORIDE 0.9% 500 ML IV ONE (14:58)
[2020-05-09] MEDS ORDERED: VANCOMYCIN CONSULT ACTIVE PRN ×2 (14:58)
[2020-05-09] MEDS ORDERED: PANTOPRAZOLE BOLUS/DRIP 1 EA IV STA (14:58)
[2020-05-09] MEDS ORDERED: CEFEPIME 2,000 MG/20 ML VIAL IV STA (14:58)
[2020-05-09 15:08] LABS: Appearance Urine Turbid (Clear); Bacteria Urine Automated 4+ (Negative); Bilirubin Urine Negative (Negative); Blood Urine 3+ (Negative); Color Urine Dark Yellow; Epithelial Cell Urine Auto 20-30 /lpf (0-5); Glucose Urine UA Negative (Negative); Ketones Urine Trace (Negative); Leukocyte Esterase Urine 3+ (Negative); Nitrite Urine Negative (Negative); Protein Urine 1+ (Negative); RBC Urine Automated >30 /hpf (0-4); Specific Gravity Urine 1.021 (1.000-1.030); Urobilinogen Urine Negative (Negative); WBC Urine Automated >30 /hpf (0-5); pH Urine 6.5 (4.5-7.5)
--- NOTE | 2020-05-09 15:37 | XRay Report ---
XR chest 1V portable HISTORY: 64 years-old Female SEPSIS acute sepsis. COMPARISON: Chest radiograph 08/26/2019 TECHNIQUE: Portable AP view of the chest FINDINGS: Patient is rotated. Skinfold projects over the left lung. Cardiac silhouette is upper limits of brigette l in size. No pneumothorax, pleural effusion, airspace consolidation or overt pulmonary edema. Mild r ight hemidiaphragmatic elevation. Increased hazy density at the left lung is likely projectional/seco ndary to summation density. Degenerative changes of the shoulders and spine. Left shoulder rotator cu ff calcific tendinosis. Mid thoracic dextroscoliosis. Cholecystectomy. IMPRESSION: No acute process. ACT 112: Negative or not required by law. The above report was generated using voice recognition software. It may contain grammatical, syntax o r spelling errors. Electronically signed by: Romel Tomlinson M.D. 05/09/2020 3:35 PM
[2020-05-09 16:00] LABS: Basophils # (auto) 0.01 K/uL (0-0.2); Basophils % (auto) 0.1 %; Eosinophils # (auto) 0.04 K/uL (0-0.5); Eosinophils % (auto) 0.3 %; Hematocrit (blood only) 34.5 % (37-47); Hemoglobin 11.3 g/dL (12.0-16.0); Immature Granulocytes # (auto) 0.12 K/uL (0.00-0.02); Immature Granulocytes % (auto) 0.8 %; Lymphocytes # (auto) 1.98 K/uL (1.2-3.4); Lymphocytes % (auto) 13.8 %; Mean Corpuscular Hemoglobin 30.1 pg (25-34); Mean Corpuscular Hgb Conc 32.8 g/dL (32-36); Mean Corpuscular Volume 91.8 fL (80-100); Mean Platelet Volume 9.4 fL (7.4-10.4); Monocytes # (auto) 1.03 K/uL (0.11-0.59); Monocytes % (auto) 7.2 %; Neutrophils # (auto) 11.19 K/uL (1.4-6.5); Neutrophils % (auto) 77.8 %; Platelet Count 372 K/uL (130-400); RDW Coefficient of Variation 13.4 % (11.5-14.5); RDW Standard Deviation 44.8 fL (36.4-46.3); Red Blood Count 3.76 M/uL (4.2-5.4); White Blood Count 14.37 K/uL (4.8-10.8)
[2020-05-09 16:16] LABS: INR 1.1 (0.9-1.1); Partial Thromboplastin Time 28.5 Seconds (21.0-31.0); Prothrombin Time 11.4 Seconds (9.0-12.0)
[2020-05-09] MEDS: PANTOprazole 40 MG in DEXTROSE 5% 100 ML IV SCH ×2 (16:17→21:29)
[2020-05-09 16:28] LABS: Alanine Aminotransferase 13 U/L (12-78); Aspartate Aminotransferase 16 U/L (15-37); BUN Creatinine Ratio 59.5 (10-20); Blood Urea Nitrogen 51 mg/dl (7-18); Calcium 8.2 mg/dl (8.5-10.1); Carbon Dioxide 28 mmol/L (21-32); Chloride 108 mmol/L (98-107); Creatinine Clr Calc Pharmacy 67.5 ml/min; Est GFR (African American) 83.3; Est GFR (Non-African American) 71.9; Glucose 95 mg/dl (70-99); Magnesium 2.6 mg/dl (1.8-2.4); Potassium 3.4 mmol/L (3.5-5.1); Sodium 139 mmol/L (136-145)
[2020-05-09 16:33] LABS: Albumin Globulin Ratio 0.4 (0.9-2); Alkaline Phosphatase 100 U/L (45-117); Bilirubin,Total 0.4 mg/dl (0.2-1); Globulin 4.9 gm/dl (2.5-4.0); Total Protein 6.9 gm/dl (6.4-8.2); Troponin I < 0.015 ng/ml (0-0.045)
[2020-05-09] MEDS ORDERED: OPTIRAY 320 100ml IV ONE (17:04)
--- NOTE | 2020-05-09 17:32 | CT Scan Report ---
ABDOMEN AND PELVIS CT WITH IV CONTRAST CT DOSE: 476.85 mGy.cm HISTORY: Acute hypertension with GI bleed and mid abdominal pain diarrhea, gi bleed, hypotension TECHNIQUE: Multiaxial CT images of the abdomen and pelvis were performed following the IV administrat ion of 94 cc of Optiray 320, A dose lowering technique was utilized adhering to the principles of AL LAURA. COMPARISON STUDY: CT abdomen and pelvis 08/26/2019 FINDINGS: Chronic right hemidiaphragmatic elevation. Mild right lung base atelectasis and bronchial w all thickening. There is no pneumatosis or pneumoperitoneum. Coronary artery calcifications. Unremarkable spleen. Mild generalized pancreatic atrophy. Unremarkable adrenal glands. Cholecystectom y with likely postsurgical extrahepatic and extrahepatic biliary ductal dilation. The liver is otherw ise unremarkable. Patency of the hepatic and portal veins. Not obstructing bilateral nephrolithiasis with calculi measuring up to 7 mm on the right and 8 mm on the left. Delayed left-sided nephrogram wi th mild left-sided hydroureteronephrosis and mild urothelial thickening of the collecting system, pel vis and ureter. A left-sided ureteral stent appears to be in satisfactory positioning. No ureteral ca lculi are identified. A stent coiled around a Pride catheter balloon. Irregular wall thickening of th e bladder is most pronounced on the anterior superior margin measuring up to 3.2 cm transversely. Het erogeneous uterus. Cystic foci of the right adnexum measuring up to 1.3 cm. Prominent left adnexum. C alcified plaque of the abdominal aorta without aneurysm. Nonspecific prominent lymph nodes of the ret roperitoneum measuring up to 8 mm. Small hiatal hernia. There is suggested malrotation of the small bowel. Moderate circumferential wall thickening of the rectum and distal sigmoid colon are noted with perirectal stranding. Additionally there is a mild wall thickening are noted in the ascending, transverse and descending colon. Moderate fecal retention. The appendix is not diagnostically visualized. Unremarkable soft tissues. Degenerat andrey changes of the spine, pelvis and hips. No suspicious bone lesions. IMPRESSION: 1. Rectal and colon wall thickening as above suggestive of a nonspecific proctocolitis with reactive perirectal stranding. The degree of wall thickening is most pronounced within the rectum. Findings co uld be correlated with a follow-up colonoscopy. 2. Mild left-sided hydroureteronephrosis with delayed nephrogram and left ureteral stent. Mild left-s ided urothelial enhancement may be reactive or reflect superimposed infection. 3. Nonobstructing bilateral nephrolithiasis. 4. Irregular masslike thickening of the anterior superior urinary bladder is not well evaluated secon delores to partially decompressed bladder. This finding could be correlated with cystoscopy to exclude u nderlying urothelial malignancy. 5. Additional findings as above. ACT 112: Negative or not required by law. The above report was generated using voice recognition software. It may contain grammatical, syntax o r spelling errors. Electronically signed by: Romel Tomlinson M.D. 05/09/2020 5:30 PM
--- NOTE | 2020-05-09 21:52 | History & Physical Report ---
Date of Service May 09, 2020 Assessment & Plan (1) Confusion: Likely due to combination of complicated urinary tract infection with presence of left ureteral stent and hydronephrosis, and nonspecific proctocolitis. Present on Admission?: Yes (2) UTI (urinary tract infection): Urinary tract infection/left ureteral stent/left hydronephrosis- Recurrent urinary tract infection history: 07/22/2019 Proteus mirabilis 08/26/2019 Proteus mirabilis 09/07/2019 Pseudomonas aeruginosa resistant to fluoroquinolones and imipenem 09/24/2019 Pseudomonas aeruginosa pansensitive Continue cefepime 1 g IV every 12 hours begun in the ED. She did also receive vancomycin IV from the ED. Present on Admission?: Yes (3) S/P ureteral stent placement: Has most recently seen Dr. Beasley from urology, who will be consulted Continue tamsulosin Present on Admission?: Yes (4) Proctocolitis with rectal bleeding: Discontinue sorbitol 30 mg p.o. twice daily Add Flagyl 500 mg IV every 8 hours to above cefepime Present on Admission?: Yes (5) Hypertension: Reduce metoprolol tartrate from 20 mg p.o. every 12 hours to 50 mg p.o. every 12 hours. Hold losartan, HCTZ, potassium chloride and amlodipine Present on Admission?: Yes (6) Seizure disorder: Continue usual meds: Clozapine, Keppra, phenytoin Present on Admission?: Yes (7) Parkinsons: Continue carbidopa levodopa Present on Admission?: Yes History of Present Illness Chief Complaint: The patient is referred from [facility] due to increasing confusion, lethargy and diarrhea Primary Care Provider: [facility] The patient is a 64-year-old female with history of hypertension, seizure disorder, hypotension, hypoxia, respiratory distress, sepsis, left ureteral stent, and Parkinson's. She is referred from [facility] due to increasing confusion, lethargy and diarrhea. Work-up in the emergency department included a CT scan of the abdomen and pelvis which showed a nonspecific proctocolitis, left hydroureteronephrosis, left ureteral stent and thickening of the bladder wall and anterior superior area by a masslike lesion. She was COVID-19 test negative. Potassium was 3.4, BMP 2.0, WBC 14.37, and hemoglobin 11.3. Allergies Allergy/AdvReac Type Severity Reaction Status Date / Time metformin Allergy Mild NAUSEA Verified 05/09/20 18:10 Cipro Allergy Unknown unknown Unverified 07/01/14 13:34 ciprofloxacin Allergy Unknown Unknown Verified 05/09/20 18:10 Home Medications Medication Instructions Recorded Confirmed Type Hemorrhoidal Cream 1 applic WI DIRECTED PRN 08/26/19 05/09/20 History acetaminophen 650 mg WI Q4H PRN MDD 3 GMS 08/26/19 05/09/20 History APAP/24 HOURS acetaminophen [Tylenol] 650 mg PO Q8H PRN MDD 3 GMS 08/26/19 05/09/20 History APAP/24 HOURS amlodipine [Norvasc] 10 mg PO HS 08/26/19 05/09/20 History atropine 2 drp SUBLINGUAL Q4H PRN 08/26/19 05/09/20 History carbidopa-levodopa 1 tab PO TID 08/26/19 05/09/20 History clonidine HCl 0.3 mg PO Q8H 08/26/19 05/09/20 History levetiracetam 750 mg PO BID 08/26/19 05/09/20 History losartan [Cozaar] 100 mg PO DAILY 08/26/19 05/09/20 History metoprolol tartrate 200 mg PO Q12H 08/26/19 05/09/20 History phenytoin sodium extended 100 mg PO BID 08/26/19 05/09/20 History [Dilantin Extended] polyvinyl alcohol [Artificial 1 drp OPHTHALMIC (EYE) BID 08/26/19 05/09/20 History Tears (polyvin alc)] selenium sulfide 1 applic TOPICAL 2XWK 08/26/19 05/09/20 History sorbitol 30 ml PO BID 08/26/19 05/09/20 History clozapine 50 mg PO DAILY 08/27/19 05/09/20 History clozapine 100 mg PO DAILY 08/27/19 05/09/20 History 2 Surendra/Cc Supplement 1 ea QID 05/09/20 05/09/20 History Nutritional Frozen Dessert 1 ea PO BID 05/09/20 History bisacodyl [Dulcolax (bisacodyl)] 10 mg WI DIRECTED PRN 05/09/20 05/09/20 History cholecalciferol (vitamin D3) 10,000 unit PO DAILY 05/09/20 05/09/20 History [Vitamin D3] clozapine 200 mg PO DAILY 05/09/20 05/09/20 History hydrochlorothiazide 25 mg PO DAILY 05/09/20 05/09/20 History magnesium hydroxide [Milk of 30 ml PO DAILY PRN 05/09/20 05/09/20 History Magnesia] ondansetron [Zofran ODT] 4 mg TRANSLINGUAL Q4H PRN 05/09/20 05/09/20 History potassium chloride 20 meq PO QAM 05/09/20 05/09/20 History sennosides-docusate sodium [Senna 2 tab PO BID 05/09/20 05/09/20 History Plus] sodium phosphates [Fleet Enema] 118 ml WI DIRECTED PRN 05/09/20 05/09/20 History tamsulosin 0.4 mg PO DAILY 05/09/20 05/09/20 History Past Med/Surg History Medical History (Updated 05/10/20 @ 05:56 by Aris Dominguez MD) Hypertension Seizure Seizure disorder Social History Smoking Status: Never smoker Hx Alcohol Use: No Hx Substance Use: No Preferred Language: Luxembourger Communication Ability: Effective Drapery Examiner Required: No Beliefs That Will Affect Care: None Current Living Situation: Senior Living Current Living Situation Comment: evans current occupational status: disabled Other Information That Helps Us Care for You: No Feels Safe at Home: Yes Safety Concerns: Feels Safe At This Time Assistive Devices: Glasses Review of Systems Review of Systems: Unobtainable due to cognitive status Physical Exam Physical Exam: The patient is awake, limited communication, normocephalic and atraumatic, lying in bed and in no acute distress. HEENT--PERRL, EOMI, mucous membranes and oropharynx dry. Neck--supple. No JVD. No bruits. Thyroid normal, trachea midline, no adenopa thy. Heart--normal S1 and S2. No murmurs, rubs or gallops. Lungs--clear bilaterally, no respiratory distress, no accessory muscle use. Abdomen--normal bowel sounds and soft. Nontender. Nondistended. Extremities--no cyanosis or clubbing. No edema. Dermatologic--normal skin turgor, normal color, no abnormal lymph nodes, no rash. Neurologic--cranial nerves II through XII grossly intact. Rheumatologic--limited exam Psychiatric--lethargic and confused Results & Data Results & Data ([facility]) Vital Signs (Past 12 Hours) Vital Signs Temp Pulse Resp BP Pulse Ox 05/09/20 20:45 75 13 133/76 99 05/09/20 20:31 80 17 100 05/09/20 20:30 81 15 150/90 H 100 05/09/20 20:16 78 13 100 05/09/20 20:15 75 14 120/77 99 05/09/20 20:01 75 12 100 05/09/20 20:00 75 18 151/84 H 100 05/09/20 19:46 73 15 99 05/09/20 19:45 73 12 119/77 99 05/09/20 19:31 75 18 100 05/09/20 19:30 75 14 139/91 100 05/09/20 19:16 72 13 05/09/20 19:15 72 15 120/76 05/09/20 19:01 72 19 05/09/20 19:00 71 13 157/89 H 05/09/20 18:45 71 15 151/80 H 99 05/09/20 18:31 70 14 100 05/09/20 18:30 70 13 137/79 99 05/09/20 18:15 70 15 148/82 H 100 05/09/20 18:01 70 14 99 05/09/20 18:00 70 15 142/78 H 99 05/09/20 17:45 69 22 133/95 98 05/09/20 17:31 67 18 99 05/09/20 17:30 67 13 131/72 98 05/09/20 17:15 68 13 130/75 99 05/09/20 17:06 70 13 99 05/09/20 16:45 70 16 135/88 05/09/20 16:31 69 13 99 05/09/20 16:30 69 17 138/79 99 05/09/20 16:15 69 16 123/74 100 05/09/20 16:01 70 17 156/88 H 100 05/09/20 16:00 70 17 05/09/20 15:48 69 15 121/70 99 05/09/20 15:32 70 13 99 05/09/20 15:31 69 14 132/78 100 05/09/20 15:30 70 19 100 05/09/20 15:16 67 18 100 05/09/20 15:15 68 14 134/78 100 05/09/20 15:12 100 05/09/20 15:01 69 15 100 05/09/20 15:00 70 19 110/80 100 05/09/20 14:45 71 15 121/81 100 05/09/20 14:40 98.1 F 67 14 100/69 99 05/09/20 14:30 68 13 100/65 98 Laboratory Results Laboratory Results WBC 14.37 K/uL (4.8-10.8) H 05/09/20 15:46 RBC 3.76 M/uL (4.2-5.4) L 05/09/20 15:46 Hgb 11.3 g/dL (12.0-16.0) L 05/09/20 15:46 Hct 34.5 % (37-47) L 05/09/20 15:46 MCV 91.8 fL (80-100) 05/09/20 15:46 MCH 30.1 pg (25-34) 05/09/20 15:46 MCHC 32.8 g/dL (32-36) 05/09/20 15:46 RDW Std Deviation 44.8 fL (36.4-46.3) 05/09/20 15:46 RDW Coeff of Elodia 13.4 % (11.5-14.5) 05/09/20 15:46 Plt Count 372 K/uL (130-400) 05/09/20 15:46 MPV 9.4 fL (7.4-10.4) 05/09/20 15:46 Immature Gran % (Auto) 0.8 % 05/09/20 15:46 Neut % (Auto) 77.8 % 05/09/20 15:46 Lymph % (Auto) 13.8 % 05/09/20 15:46 Douglas % (Auto) 7.2 % 05/09/20 15:46 Eos % (Auto) 0.3 % 05/09/20 15:46 Baso % (Auto) 0.1 % 05/09/20 15:46 Neut # (Auto) 11.19 K/uL (1.4-6.5) H 05/09/20 15:46 Lymph # (Auto) 1.98 K/uL (1.2-3.4) 05/09/20 15:46 Douglas # (Auto) 1.03 K/uL (0.11-0.59) H 05/09/20 15:46 Eos # (Auto) 0.04 K/uL (0-0.5) 05/09/20 15:46 Baso # (Auto) 0.01 K/uL (0-0.2) 05/09/20 15:46 Immature Gran # (Auto) 0.12 K/uL (0.00-0.02) H 05/09/20 15:46 PT 11.4 Seconds (9.0-12.0) 05/09/20 15:46 INR 1.1 (0.9-1.1) 05/09/20 15:46 APTT 28.5 Seconds (21.0-31.0) 05/09/20 15:46 PTT Ratio 1.0 05/09/20 15:46 Sodium 139 mmol/L (136-145) 05/09/20 15:46 Potassium 3.4 mmol/L (3.5-5.1) L 05/09/20 15:46 Chloride 108 mmol/L (98-107) H 05/09/20 15:46 Carbon Dioxide 28 mmol/L (21-32) 05/09/20 15:46 Anion Gap 3.0 (3-11) 05/09/20 15:46 BUN 51 mg/dl (7-18) H 05/09/20 15:46 Creatinine 0.86 mg/dl (0.6-1.2) 05/09/20 15:46 Est Cr Clr Drug Dosing 67.5 ml/min 05/09/20 15:46 Est GFR ( Amer) 83.3 05/09/20 15:46 Est GFR (Non-Af Amer) 71.9 05/09/20 15:46 BUN/Creatinine Ratio 59.5 (10-20) H 05/09/20 15:46 Glucose 95 mg/dl (70-99) 05/09/20 15:46 Lactate 0.9 mmol/L (0.4-2.0) 05/09/20 15:46 Calcium 8.2 mg/dl (8.5-10.1) L 05/09/20 15:46 Magnesium 2.6 mg/dl (1.8-2.4) H 05/09/20 15:46 Total Bilirubin 0.4 mg/dl (0.2-1) 05/09/20 15:46 AST 16 U/L (15-37) 05/09/20 15:46 ALT 13 U/L (12-78) 05/09/20 15:46 Alkaline Phosphatase 100 U/L (45-117) 05/09/20 15:46 Troponin I < 0.015 ng/ml (0-0.045) 05/09/20 15:46 Total Protein 6.9 gm/dl (6.4-8.2) 05/09/20 15:46 Albumin 2.0 gm/dl (3.4-5.0) L 05/09/20 15:46 Globulin 4.9 gm/dl (2.5-4.0) H 05/09/20 15:46 Albumin/Globulin Ratio 0.4 (0.9-2) L 05/09/20 15:46 Procalcitonin 0.24 ng/ml (0-0.5) 05/09/20 15:46 Urine Color Dark Yellow 05/09/20 14:55 Urine Appearance Turbid (Clear) A 05/09/20 14:55 Urine pH 6.5 (4.5-7.5) 05/09/20 14:55 Ur Specific [place] 1.021 (1.000-1.030) 05/09/20 14:55 Urine Protein 1+ (Negative) H 05/09/20 14:55 Urine Glucose (UA) Negative (Negative) 05/09/20 14:55 Urine Ketones Trace (Negative) H 05/09/20 14:55 Urine Blood 3+ (Negative) H 05/09/20 14:55 Urine Nitrite Negative (Negative) 05/09/20 14:55 Urine Bilirubin Negative (Negative) 05/09/20 14:55 Urine Urobilinogen Negative (Negative) 05/09/20 14:55 Ur Leukocyte Esterase 3+ (Negative) H 05/09/20 14:55 Urine WBC (Auto) >30 /hpf (0-5) H 05/09/20 14:55 Urine RBC (Auto) >30 /hpf (0-4) H 05/09/20 14:55 U Hyaline Cast (Auto) 1-5 /lpf (0-5) 05/09/20 14:55 U Epithel Cells (Auto) 20-30 /lpf (0-5) H 05/09/20 14:55 Urine Bacteria (Auto) 4+ (Negative) H 05/09/20 14:55 Urine Yeast Present (None Prsent) A 05/09/20 14:55 COVID-19 Eval Order Covid19 [facility] 05/09/20 18:20 SARS-CoV-2, RNA, NAAT NEGATIVE (NEGATIVE) 05/09/20 18:20 Blood Type O Positive 05/09/20 15:46 Antibody Screen NEGATIVE 05/09/20 15:46 Diagnostic Findings [facility], [id number] XRay Report Patient: CAMILLE AYON Date: 05/09/20MR#: [id number]: [address] DRAcct ID:[id number]: HEARTHSIDEBirth Date: 1955City Zip: [place], [place] [address]Kiq: 64Location: EDSex: FRoom/Bed:Att Phy:Diagnosis: Lethargic diarrheaPri Phy: LauraMichael castilloyService Date: 05/09/20Fam Phy:Interpreting Phy: Jd TomlinsonAdmit Phy: Ordering Phy: Astrid Salinas DO cc: ~ XR chest 1V portable HISTORY: 64 years-old Female SEPSIS acute sepsis. COMPARISON: Chest radiograph 08/26/2019 TECHNIQUE: Portable AP view of the chest FINDINGS: Patient is rotated. Skinfold projects over the left lung. Cardiac silhouette is upper limits of normal in size. No pneumothorax, pleural effusion, airspace consolidation or overt pulmonary edema. Mild right hemidiaphragmatic elevation. Increased hazy density at the left lung is likely projectional/secondary to summation density. Degenerative changes of the shoulders and spine. Left shoulder rotator cuff calcific tendinosis. Mid thoracic dextroscoliosis. Cholecystectomy. IMPRESSION: No acute process. ACT 112: Negative or not required by law. The above report was generated using voice recognition software. It may contain grammatical, syntax or spelling errors. Electronically signed by: Romel Tomlinson M.D. 05/09/2020 3:35 PM Dictated: 05/09/20 1533Transcribed: 05/09/20 1533 [facility], [phone] CT Scan Report Patient: CAMILLE AYON Date: 05/09/20MR#: [id number]: [address] [facility]ITALAnna DRAcct ID:[id number]: HEARTHSIDEBirth Date: [address] Zip: [place], [place] [address]Vjt: 64Location: EDSex: FRoom/Bed:Att Phy:Diagnosis: Lethargic diarrheaPri Phy: Heartjonathan NittanyService Date: 05/09/20Fam Phy:Interpreting Phy: Jd TomlinsonAdmit Phy: Ordering Phy: Astrid Salinas DO cc: ~ ABDOMEN AND PELVIS CT WITH IV CONTRAST CT DOSE: 476.85 mGy.cm HISTORY: Acute hypertension with GI bleed and mid abdominal pain diarrhea, gi bleed, hypotension TECHNIQUE: Multiaxial CT images of the abdomen and pelvis were performed following the IV administration of 94 cc of Optiray 320, A dose lowering technique was utilized adhering to the principles of ALARA. COMPARISON STUDY: CT abdomen and pelvis 08/26/2019 FINDINGS: Chronic right hemidiaphragmatic elevation. Mild right lung base atelectasis and bronchial wall thickening. There is no pneumatosis or pneumoperitoneum. Coronary artery calcifications. Unremarkable spleen. Mild generalized pancreatic atrophy. Unremarkable adrenal glands. Cholecystectomy with likely postsurgical extrahepatic and extrahepatic biliary ductal dilation. The liver is otherwise unremarkable. Patency of the hepatic and portal veins. Not obstructing bilateral nephrolithiasis with calculi measuring up to 7 mm on the right and 8 mm on the left. Delayed left-sided nephrogram with mild left-sided hydroureteronephrosis and mild urothelial thickening of the collecting system, pelvis and ureter. A left-sided ureteral stent appears to be in satisfactory positioning. No ureteral calculi are identified. A stent coiled around a Pride catheter balloon. Irregular wall thickening of the bladder is most pronounced on the anterior superior margin measuring up to 3.2 cm transversely. Heterogeneous uterus. Cystic foci of the right adnexum measuring up to 1.3 cm. Prominent left adnexum. Calcified plaque of the abdominal aorta without aneurysm. Nonspecific prominent lymph nodes of the retroperitoneum measuring up to 8 mm. Small hiatal hernia. There is suggested malrotation of the small bowel. Moderate circumferential wall thickening of the rectum and distal sigmoid colon are noted with perirectal stranding. Additionally there is a mild wall thickening are noted in the ascending, transverse and descending colon. Moderate fecal retention. The appendix is not diagnostically visualized. Unremarkable soft tissues. Degenerative changes of the spine, pelvis and hips. No suspicious bone lesions. IMPRESSION: 1. Rectal and colon wall thickening as above suggestive of a nonspecific proctocolitis with reactive perirectal stranding. The degree of wall thickening is most pronounced within the rectum. Findings could be correlated with a follow-up colonoscopy. 2. Mild left-sided hydroureteronephrosis with delayed nephrogram and left ureteral stent. Mild left-sided urothelial enhancement may be reactive or reflect superimposed infection. 3. Nonobstructing bilateral nephrolithiasis. 4. Irregular masslike thickening of the anterior superior urinary bladder is not well evaluated secondary to partially decompressed bladder. This finding could be correlated with cystoscopy to exclude underlying urothelial malignancy. 5. Additional findings as above. ACT 112: Negative or not required by law. The above report was generated using voice recognition software. It may contain grammatical, syntax or spelling errors. Electronically signed by: Romel Tomlinson M.D. 05/09/2020 5:30 PM Dictated: 05/09/20 1719Transcribed: 05/09/20 1719 Code Status & VTE Plan Code Status Full code VTE Prophylaxis Plan VTE Prophylaxis will be ordered: Yes PG Care Time/CCT Total # of Minutes Spent Total Time Spent with Patient: Total time spent is greater than 50% in coordination of care (as documented) at patient's floor/unit and/or counseling patient: Coding Level of Care Code 97395 Initial Inpt Care Lvl 3 Diagnoses Confusion R41.0 UTI (urinary tract infection) N30.00 Hematuria presence: without hematuria Urinary tract infection type: acute cystitis S/P ureteral stent placement Z96.0 Proctocolitis with rectal bleeding K52.9; K62.5 Hypertension I10 Seizure disorder G40.909 Parkinsons G20 (1) UTI (urinary tract infection) Hematuria presence: without hematuria Urinary tract infection type: acute cystitis Qualified Code(s): N30.00 - Acute cystitis without hematuria
[2020-05-09] MEDS ORDERED: ACETAMINOPHEN 325 MG TAB PO PRN (22:17)
[2020-05-09] MEDS ORDERED: ONDANSETRON INJ 2 MG/ML 2 ML VIAL IV PRN (22:17)
[2020-05-09] MEDS ORDERED: PHENYLEPH PRAMOXIN GLYCR W PET PR PRN (22:17)
[2020-05-09] MEDS ORDERED: ATROPINE SULFATE 1% OP SOLN 2 ML BTL SL PRN (22:17)
--- NOTE | 2020-05-09 22:46 | Pharmacy Report ---
Pharmacy Abx Dose Short Note - Date of Service May 09, 2020 - Assessment & Plan Assessment 64 year old F receiving cefepime/vancomycin/Flagyl for treatment of AMS Day # 1 of antimicrobial therapy. Plan Vancomycin Patient meets criteria for vancomycin AUC dosing nomogram AUC/SANDOR is the preferred PK/PD target for vancomycin * Target AUC/SANDOR = 400-600 * AUC guided dosing is effective and associated with decreased risk of nephrotoxicity Pharmacy will continue to follow and will adjust dose/frequency as necessary. Thank you.
[2020-05-09] MEDS: PHENYTOIN SODIUM ER 100 MG CAP PO SCH (23:42)
[2020-05-09] MEDS: levETIRAcetam 250 MG TAB PO SCH (23:43)
[2020-05-09] MEDS: CARBIDOPA/LEVODOP 10/100MG TAB PO SCH (23:43)
[2020-05-09] MEDS: METOPROLOL TARTRATE 50 MG TAB PO SCH (23:44)
[2020-05-09] MEDS: NSS + 20MEQ KCL 20 MEQ/1,000 ML BAG IV SCH (23:45)
[2020-05-09] MEDS: metroNIDAZOLE 500 MG/100 ML BAG IV SCH (23:46)
[2020-05-10] MEDS: PANTOprazole 40 MG in DEXTROSE 5% 100 ML IV SCH ×5 (03:14→19:16)
[2020-05-10] MEDS: VANCOMYCIN HCL 1,000 MG in SODIUM CHLORIDE 0.9% 250 ML IV SCH ×2 (03:35→17:03)
[2020-05-10] MEDS: CEFEPIME 2,000 MG in SYRINGE 0 ML IV SCH ×2 (03:36→17:03)
[2020-05-10] MEDS: metroNIDAZOLE 500 MG/100 ML BAG IV SCH ×3 (08:59→23:57)
[2020-05-10] MEDS: NSS + 20MEQ KCL 20 MEQ/1,000 ML BAG IV SCH ×2 (08:59→19:17)
[2020-05-10] MEDS: CARBIDOPA/LEVODOP 10/100MG TAB PO SCH ×4 (09:00→20:05)
[2020-05-10] MEDS ORDERED: cloZAPine 100 MG TAB PO SCH (09:00)
[2020-05-10] MEDS: METOPROLOL TARTRATE 50 MG TAB PO SCH ×3 (09:00→20:08)
[2020-05-10] MEDS: levETIRAcetam 250 MG TAB PO SCH ×3 (09:01→20:05)
[2020-05-10] MEDS: cloZAPine 100 MG TAB PO SCH ×2 (09:01→09:10)
[2020-05-10] MEDS: cloZAPine 25 MG TAB PO SCH ×2 (09:01→09:10)
[2020-05-10] MEDS: PHENYTOIN SODIUM ER 100 MG CAP PO SCH ×3 (09:01→20:06)
--- NOTE | 2020-05-10 10:39 | Urology Consultation ---
Date of Consultation May 10, 2020 Assessment & Plan (1) Confusion: (2) UTI (urinary tract infection): (3) S/P ureteral stent placement: 64 year-old female patient, with multiple comorbidities, admitted with worsening confusion, proctocolitis, and presumed UTI. -Patient afebrile. -Labs reviewed - creatinine stable and white count improved. -Urine culture with high counts of multiple organisms. -CT abd/pelvis reviewed - retained ureteral stent. -Continue with supportive care and antibiotic therapy. -Recommend NPO after midnight for anticipated surgical intervention tomorrow. -Plan for cystoscopy, left retrograde pyelogram and left stent exchange, possible left ureteroscopy, laser lithotripsy, stone basketing, possible ureteral dilation depending on findings. -OR notified. Chest x-ray and EKG in chart. COVID test negative 05/09/20. -Coordinated with case management regarding information for patient's primary contact to discuss update. -Updated provided to patient's sister, Hillary Spring, via telephone. All questions answered. -Will continue to follow while inpatient. 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 According to admission notes, patient had prior ileus and had been on a clear liquid diet with several days of nonbloody diarrhea. Patient was admitted to hospital with confusion, UTI, and pr octocolitis. Urology consulted due to UTI with left ureteral stent. Patient known to [facility] urology - history of obstructing stones. Patient with hospital admission in August of 2019 secondary to sepsis, UTI, and obstructing stones in which she underwent emergent cystoscopy and left ureteral stent placement with Dr. Solitario Rossi 08/27/19. After procedure, patient was not seen in follow-up with our office for stone management. Chart review: Afebrile 05/09 labs reviewed - Wbc 14.37 (21.45 on admission) Hgb 11.3 Creatinine 0.86 Urinalysis on admission with +3 leukocytes, >30 wbc, >30 rbc, +4 bacteria, negative nitrates. Urine culture 05/09 - more than three types of organisms present, all high counts. Repeat collection recommended. Imaging CT abd/pelvis with IV contrast - 1. Rectal and colon wall thickening as above suggestive of a nonspecific proctocolitis with reactive perirectal stranding. The degree of wall thickening is most pronounced within the rectum. Findings could be correlated with a follow-up colonoscopy. 2. Mild left-sided hydroureteronephrosis with delayed nephrogram and left ureteral stent. Mild left-sided urothelial enhancement may be reactive or refl ect superimposed infection. 3. Nonobstructing bilateral nephrolithiasis. 4. Irregular masslike thickening of the anterior superior urinary bladder is not well evaluated secondary to partially decompressed bladder. This finding could be correlated with cystoscopy to exclude underlying urothelial malignancy. 5. Additional findings as above. Patient examined at bedside today - she is a poor historian. She is alert to person only during time of exam. She does fall asleep easily. Does answer simple questions and follow simple commands. Reports pain in her abdomen. States she is having diarrhea and nausea. When asked if she had flank pain, her response was "no". She does not know if she has fevers or chills. Pride catheter intact. No known hematuria. She reports no other symptoms. She is unsure of family history. Of note: Prior note from surgeon for H&P addendum in August 2019 - "care d/w with [facility] - per staff patient able to sign own consent, daughter contacted previously as only listed family member, no POA on records and note in chart to NOT contact daughter regarding any medical care due to "family dynamic."" Allergies Allergy/AdvReac Type Severity Reaction Status Date / Time metformin Allergy Mild NAUSEA Verified 05/09/20 18:10 Cipro Allergy Unknown unknown Unverified 07/01/14 13:34 ciprofloxacin Allergy Unknown Unknown Verified 05/09/20 18:10 Home Medications Medication Instructions Recorded Confirmed Type Hemorrhoidal Cream [address] DIRECTED PRN 08/26/19 05/09/20 History acetaminophen [address] Q4H PRN MDD 3 GMS 08/26/19 05/09/20 History APAP/24 HOURS acetaminophen [Tylenol] 650 mg PO Q8H PRN MDD 3 GMS 08/26/19 05/09/20 History APAP/24 HOURS amlodipine [Norvasc] 10 mg PO HS 08/26/19 05/09/20 History atropine 2 drp SUBLINGUAL Q4H PRN 08/26/19 05/09/20 History carbidopa-levodopa 1 tab PO TID 08/26/19 05/09/20 History clonidine HCl 0.3 mg PO Q8H 08/26/19 05/09/20 History levetiracetam 750 mg PO BID 08/26/19 05/09/20 History losartan [Cozaar] 100 mg PO DAILY 08/26/19 05/09/20 History metoprolol tartrate 200 mg PO Q12H 08/26/19 05/09/20 History phenytoin sodium extended 100 mg PO BID 08/26/19 05/09/20 History [Dilantin Extended] polyvinyl alcohol [Artificial 1 drp OPHTHALMIC (EYE) BID 08/26/19 05/09/20 History Tears (polyvin alc)] selenium sulfide 1 applic TOPICAL 2XWK 08/26/19 05/09/20 History sorbitol 30 ml PO BID 08/26/19 05/09/20 History clozapine 50 mg PO DAILY 08/27/19 05/09/20 History clozapine 100 mg PO DAILY 08/27/19 05/09/20 History 2 Surendra/Cc Supplement 1 ea QID 05/09/20 05/09/20 History Nutritional Frozen Dessert 1 ea PO BID 05/09/20 History bisacodyl [Dulcolax (bisacodyl)] [address] DIRECTED PRN 05/09/20 05/09/20 History cholecalciferol (vitamin D3) 10,000 unit PO DAILY 05/09/20 05/09/20 History [Vitamin D3] clozapine 200 mg PO DAILY 05/09/20 05/09/20 History hydrochlorothiazide 25 mg PO DAILY 05/09/20 05/09/20 History magnesium hydroxide [Milk of 30 ml PO DAILY PRN 05/09/20 05/09/20 History Magnesia] ondansetron [Zofran ODT] 4 mg TRANSLINGUAL Q4H PRN 05/09/20 05/09/20 History potassium chloride 20 meq PO QAM 05/09/20 05/09/20 History sennosides-docusate sodium [Senna 2 tab PO BID 05/09/20 05/09/20 History Plus] sodium phosphates [Fleet Enema] [address] DIRECTED PRN 05/09/20 05/09/20 History tamsulosin 0.4 mg PO DAILY 05/09/20 05/09/20 History Patient History Medical History Hypertension Seizure Seizure disorder Social History Smoking Status: Never smoker Hx Alcohol Use: No Hx Substance Use: No Preferred Language: Angolan Communication Ability: Impaired Rf Technician Required: No Beliefs That Will Affect Care: None Current Living Situation: Correction Current Living Situation Comment: evans current occupational status: disabled Other Information That Helps Us Care for You: No Feels Safe at Home: Yes Safety Concerns: Feels Safe At This Time Assistive Devices: Walker Review of Systems Review of Systems: ROS difficult to obtain due to orientation status. Constitutional: as per Subjective / HPI Gastrointestinal: as per Subjective / HPI Genitourinary: as per Subjective / HPI Neurologic: as per Subjective / HPI Physical Exam Constitutional: + frail appearing, cooperative and comfortable; no acute distress Chronically ill appearing ENMT: Ears: no external ear abnormality Nose: no external nose abnormality Neck: normal visual inspection and trachea midline Respiratory: normal respiratory effort; no respiratory distress, no cough and no audible wheezes Cardiovascular: Extremities: no calf tenderness and no edema Gastrointestinal (Abdomen): Inspection/Auscultation: abdomen normal to inspection; abdomen not distended Percussion/Palpation: + abdomen tender (Tender to lower abdomen to palpation) and abdomen soft; no guarding Skin: No visible rashes, lesions, or wounds noted. Neurologic: moves all extremities and awake Psychiatric: Orientation: alert, oriented to person and cooperative; + not oriented to place and + not oriented to time Genitourinary: no CVA tenderness Pride catheter intact draining jodi ntrated yellow urine. No gross hematuria. Results & Data ([facility]) Vital Signs (Past 12 Hours) Vital Signs Temp Pulse Resp BP Pulse Ox 05/10/20 08:19 36.5 C 83 18 155/79 H 98 05/10/20 00:00 36.5 C 83 18 119/77 97 PG Care Time/CCT Total # of Minutes Spent Total Time Spent with Patient: Total time spent is greater than 50% in coordination of care (as documented) at patient's floor/unit and/or counseling patient: Coding Level of Care Code 59976 Initial Inpt Care Lvl 3 Diagnoses Confusion R41.0 UTI (urinary tract infection) N30.00 Hematuria presence: without hematuria Urinary tract infection type: acute cystitis S/P ureteral stent placement Z96.0 (1) UTI (urinary tract infection) Hematuria presence: without hematuria Urinary tract infection type: acute cystitis Qualified Code(s): N30.00 - Acute cystitis without hematuria
--- NOTE | 2020-05-10 14:13 | Electrocardiogram Report ---
Test Reason : Blood Pressure : / mmHG Vent. Rate : 067 BPM Atrial Rate : 067 BPM P-R Int : 166 ms QRS Dur : 090 ms QT Int : 434 ms P-R-T Axes : 052 044 052 degrees QTc Int : 458 ms Normal sinus rhythm Normal ECG When compared with ECG of 26-AUG-2019 18:58, Non-specific change in ST segment in Lateral leads Nonspecific T wave abnormality no longer evident in Inferior leads Nonspecific T wave abnormality, improved in Anterolateral leads Confirmed by Reddy Medina ([id number]) on 05/10/2020 2:12:34 PM Referred By: Marifer Penn Confirmed By:Davidson Medina
--- NOTE | 2020-05-10 23:23 | Hospitalist Progress Note ---
Date of Service May 10, 2020 Assessment & Plan (1) Confusion: Likely due to combination of complicated urinary tract infection with presence of left ureteral stent and hydronephrosis, and nonspecific proctocolitis. Will be NPO after midnight and will have urological procedure in AM: cystoscopy, left retrograde pyelogram and left stent exchange, possible left ureteroscopy, laser lithotripsy, stone basketing, possible ureteral dilation depending on findings. (2) UTI (urinary tract infection): Urinary tract infection/left ureteral stent/left hydronephrosis- Recurrent urinary tract infection history: 07/22/2019 Proteus mirabilis 08/26/2019 Proteus mirabilis 09/07/2019 Pseudomonas aeruginosa resistant to fluoroquinolones and imipenem 09/24/2019 Pseudomonas aeruginosa pansensitive Continue cefepime 1 g IV every 12 hours begun in the ED. She did also receive vancomycin IV from the ED. (3) S/P ureteral stent placement: Has most recently seen Dr. Beasley from urology, who will be consulted Continue tamsulosin (4) Proctocolitis with rectal bleeding: Patient had large BM. will continue antibiotics as below. Discontinue sorbitol 30 mg p.o. twice daily Add Flagyl 500 mg IV every 8 hours to above cefepime (5) Hypertension: Reduce metoprolol tartrate from 20 mg p.o. every 12 hours to 50 mg p.o. every 12 hours. Hold losartan, HCTZ, potassium chloride and amlodipine (6) Seizure disorder: Continue usual meds: Clozapine, Keppra, phenytoin (7) Parkinsons: Continue carbidopa levodopa Admission and Anticipated Discharge Date Admission Date: May 09, 2020 Subjective Patient is able to verbalize that she is not in any pain or discomfort at this time. Patient had a large BM as per nursig. Review of Systems Review of Systems: All systems reviewed & are unremarkable except as noted in HPI & below Physical Exam Physical Exam: The patient is awake, limited communication, normocephalic and atraumatic, lying in bed and in no acute distress. HEENT--PERRL, EOMI, mucous membranes and oropharynx dry. Neck--supple. No JVD. No bruits. Thyroid normal, trachea midline, no adenopathy. Heart--normal S1 and S2. No murmurs, rubs or gallops. Lungs--clear bilaterally, no respiratory distress, no accessory muscle use. Abdomen--normal bowel sounds and soft. Nontender. Nondistended. Extremities--no cyanosis or clubbing. No edema. Dermatologic--normal skin turgor, normal color, no abnormal lymph nodes, no rash. Neurologic--cranial nerves II through XII grossly intact. Rheumatologic--limited exam Psychiatric--lethargic and confused Results & Data Results & Data ([facility]) Vital Signs (Past 12 Hours) Vital Signs Temp Pulse Resp BP Pulse Ox 05/10/20 20:06 89 154/90 H 05/10/20 16:01 36.6 C 87 18 148/84 H 98 PG Care Time/CCT Total # of Minutes Spent Total Time Spent with Patient: Total time spent is greater than 50% in coordination of care (as documented) at patient's floor/unit and/or counseling patient: Coding Level of Care Code 30905 Subseq Hosp Care Lvl 3 Diagnoses Confusion R41.0 UTI (urinary tract infection) N30.00 Hematuria presence: without hematuria Urinary tract infection type: acute cystitis S/P ureteral stent placement Z96.0 Proctocolitis with rectal bleeding K52.9; K62.5 Hypertension I10 Seizure disorder G40.909 Parkinsons G20 (1) UTI (urinary tract infection) Hematuria presence: without hematuria Urinary tract infection type: acute cystitis Qualified Code(s): N30.00 - Acute cystitis without hematuria
[2020-05-11] MEDS: PANTOprazole 40 MG in DEXTROSE 5% 100 ML IV SCH ×4 (00:01→16:19)
[2020-05-11] MEDS ORDERED: VANCOMYCIN TROUGH ONE (03:30)
[2020-05-11] MEDS: VANCOMYCIN HCL 1,000 MG in SODIUM CHLORIDE 0.9% 250 ML IV SCH (04:23)
[2020-05-11] MEDS: CEFEPIME 2,000 MG in SYRINGE 0 ML IV SCH ×3 (04:25→20:44)
[2020-05-11] MEDS: NSS + 20MEQ KCL 20 MEQ/1,000 ML BAG IV SCH ×2 (06:00→16:19)
--- NOTE | 2020-05-11 07:41 | Urology Progress Note ---
Date of Service May 11, 2020 Assessment & Plan (1) Confusion: (2) UTI (urinary tract infection): (3) S/P ureteral stent placement: 64 year-old female patient, with multiple comorbidities, admitted with worsening confusion, proctocolitis, and presumed UTI. -Patient remains afebrile. -Labs ordered and pending. -Urine culture with high counts of multiple organisms. -Continue with supportive care and antibiotic therapy. -Will plan to proceed with surgical intervention today. -Keep NPO. -Plan for cystoscopy, left retrograde pyelogram and left stent exchange, possible left ureteroscopy, laser lithotripsy, stone basketing, possible ureteral dilation depending on findings. -OR previously notified. Chest x-ray and EKG in chart. COVID test negative 05/09/20. -Patient currently covered preoperatively with IV Vancomycin and IV Cefepime. Also on IV Metronidazole. -Updated provided to patient's sister, Hillary Spring, via telephone who is agreeable to consenting for procedure on patient's behalf. -Risks and benefits of the procedure were discussed as per consent and to be reviewed by Dr. Brunner. All questions answered. -Will continue to follow while inpatient. Admission and Anticipated Discharge Date Admission Date: May 09, 2020 Supervising Physician Co-Signing Physician Notes Agree with above. Plan for OR to remove the current stent, clear ureter of all stone debris and potentially place a new stent. Subjective Patient more awake and alert this am. She reports she is feeling "much better". Does appear to continue to be disoriented, however answers questions appropriately. Denies abdominal or flank pain. Tolerating catheter. She does not believe she has had any fevers or chills. Discussed surgical intervention, patient agreeable to proceed and says "Hillary must say yes". Has been NPO since midnight for planned procedure. Chart review: Afebrile Labs ordered and pending. Urine culture showing high counts mixed organisms. Preliminary blood culture x1 with gram negative bacilli. Patient currently on IV Vancomycin, IV Cefepime, IV Metronidazole. Denies additional urologic concerns today. Review of Systems Review of Systems: ROS difficult to obtain due to cognitive status. Constitutional: as per Subjective / HPI Gastrointestinal: as per Subjective / HPI Genitourinary: as per Subjective / HPI Neurologic: as per Subjective / HPI Physical Exam Constitutional: + frail appearing, cooperative and comfortable; no acute distress ENMT: Ears: no external ear abnormality Neck: normal visual inspection and trachea midline Respiratory: normal respiratory effort, + cough and able to speak in complete sentences; no respiratory distress and no audible wheezes Cardiovascular: Extremities: no calf tenderness and no edema Gastrointestinal (Abdomen): Inspection/Auscultation: abdomen normal to inspection; abdomen not distended Percussion/Palpation: abdomen soft; abdomen nontender and no guarding Neurologic: moves all extremities and awake Psychiatric: Orientation: alert, oriented to person and cooperative; + not oriented to place and + not oriented to time Genitourinary: no CVA tenderness Pride catheter intact draining concentrated yellow urine. No visible hematuria. Results & Data ([facility]) Vital Signs (Past 12 Hours) Vital Signs Temp Pulse Resp BP Pulse Ox 05/10/20 23:02 36.8 C 71 16 164/76 H 98 05/10/20 20:06 89 154/90 H PG Care Time/CCT Total # of Minutes Spent Total Time Spent with Patient: Total time spent is greater than 50% in coordination of care (as documented) at patient's floor/unit and/or counseling patient: Coding Level of Care Code 44036 Subseq Hosp Care Lvl 2 Diagnoses Confusion R41.0 UTI (urinary tract infection) N30.00 Hematuria presence: without hematuria Urinary tract infection type: acute cystitis S/P ureteral stent placement Z96.0 (1) UTI (urinary tract infection) Hematuria presence: without hematuria Urinary tract infection type: acute cystitis Qualified Code(s): N30.00 - Acute cystitis without hematuria
[2020-05-11 08:01] LABS: Basophils # (auto) 0.01 K/uL (0-0.2); Basophils % (auto) 0.1 %; Eosinophils # (auto) 0.16 K/uL (0-0.5); Eosinophils % (auto) 1.5 %; Hematocrit (blood only) 29.4 % (37-47); Hemoglobin 9.8 g/dL (12.0-16.0); Immature Granulocytes # (auto) 0.15 K/uL (0.00-0.02); Immature Granulocytes % (auto) 1.4 %; Lymphocytes # (auto) 1.69 K/uL (1.2-3.4); Lymphocytes % (auto) 15.7 %; Mean Corpuscular Hemoglobin 30.2 pg (25-34); Mean Corpuscular Volume 90.5 fL (80-100); Mean Platelet Volume 9.3 fL (7.4-10.4); Monocytes # (auto) 0.88 K/uL (0.11-0.59); Monocytes % (auto) 8.2 %; Neutrophils % (auto) 73.1 %; Platelet Count 314 K/uL (130-400); RDW Standard Deviation 43.4 fL (36.4-46.3); Red Blood Count 3.25 M/uL (4.2-5.4); White Blood Count 10.79 K/uL (4.8-10.8)
[2020-05-11 08:17] LABS: Mean Corpuscular Hgb Conc 33.3 g/dL (32-36)
[2020-05-11 08:20] LABS: BUN Creatinine Ratio 34.8 (10-20); Calcium 8.2 mg/dl (8.5-10.1); Creatinine Clr Calc Pharmacy 88.2 ml/min; Est GFR (African American) 110.6; Est GFR (Non-African American) 95.5; Potassium 3.3 mmol/L (3.5-5.1)
--- NOTE | 2020-05-11 09:49 | Anesthesiology Consultation ---
Date of Service May 11, 2020 Assessment & Plan (1) Encounter for pre-operative examination: Chart Review Chart Review: data entry technician initiated History Surgery Operation Date: 05/11/20 13:50 Proposed Procedures p Cystoscopy, Left Retrograde, Stent Exchange, Possible Ureteroscopy and Laser Lithotripsy - Otis Brunner MD Height/Weight Height: 5 ft 4.5 in Weight: 69 kg Allergies Allergy/AdvReac Type Severity Reaction Status Date / Time metformin Allergy Mild NAUSEA Verified 05/09/20 18:10 Cipro Allergy Unknown unknown Unverified 07/01/14 13:34 ciprofloxacin Allergy Unknown Unknown Verified 05/09/20 18:10 Medications Home Medications Medication Instructions Recorded Confirmed Last Taken Hemorrhoidal Cream 1 applic SC DIRECTED PRN 08/26/19 05/09/20 Unknown acetaminophen 650 mg SC Q4H PRN MDD 3 GMS 08/26/19 05/09/20 Unknown APAP/24 HOURS acetaminophen [Tylenol] 650 mg PO Q8H PRN MDD 3 GMS 08/26/19 05/09/20 08/26/19 APAP/24 HOURS amlodipine [Norvasc] 10 mg PO HS 08/26/19 05/09/20 05/08/20 20:00 atropine 2 drp SUBLINGUAL Q4H PRN 08/26/19 05/09/20 Unknown carbidopa-levodopa 1 tab PO TID 08/26/19 05/09/20 05/09/20 12:00 clonidine HCl 0.3 mg PO Q8H 08/26/19 05/09/20 05/09/20 08:00 levetiracetam 750 mg PO BID 08/26/19 05/09/20 05/09/20 09:00 losartan [Cozaar] 100 mg PO DAILY 08/26/19 05/09/20 05/09/20 09:00 metoprolol tartrate 200 mg PO Q12H 08/26/19 05/09/20 05/09/20 09:00 phenytoin sodium extended 100 mg PO BID 08/26/19 05/09/20 05/09/20 08:00 [Dilantin Extended] polyvinyl alcohol [Artificial 1 drp OPHTHALMIC (EYE) BID 08/26/19 05/09/20 05/09/20 09:00 Tears (polyvin alc)] selenium sulfide 1 applic TOPICAL 2XWK 08/26/19 05/09/20 Unknown sorbitol 30 ml PO BID 08/26/19 05/09/20 05/09/20 08:00 clozapine 50 mg PO DAILY 08/27/19 05/09/20 05/09/20 clozapine 100 mg PO DAILY 08/27/19 05/09/20 05/09/20 09:00 2 Surendra/Cc Supplement 1 ea QID 05/09/20 05/09/20 05/09/20 12:00 Nutritional Frozen Dessert 1 ea PO BID 05/09/20 05/09/20 10:00 bisacodyl [Dulcolax (bisacodyl)] 10 mg SC DIRECTED PRN 05/09/20 05/09/20 Unknown cholecalciferol (vitamin D3) 10,000 unit PO DAILY 05/09/20 05/09/20 05/09/20 09:00 [Vitamin D3] clozapine 200 mg PO DAILY 05/09/20 05/09/20 05/09/20 09:00 hydrochlorothiazide 25 mg PO DAILY 05/09/20 05/09/20 05/09/20 08:00 magnesium hydroxide [Milk of 30 ml PO DAILY PRN 05/09/20 05/09/20 Unknown Magnesia] ondansetron [Zofran ODT] 4 mg TRANSLINGUAL Q4H PRN 05/09/20 05/09/20 Unknown potassium chloride 20 meq PO QAM 05/09/20 05/09/20 05/09/20 08:00 sennosides-docusate sodium [Senna 2 tab PO BID 05/09/20 05/09/20 05/09/20 08:00 Plus] sodium phosphates [Fleet Enema] 118 ml SC DIRECTED PRN 05/09/20 05/09/20 Unknown tamsulosin 0.4 mg PO DAILY 05/09/20 05/09/20 05/09/20 08:00 Active Medications Generic Name Dose Route Start Last Admin Trade Name Freq PRN Reason Stop Dose Admin Carbidopa/Levodopa 1 tab 05/09/20 22:17 05/10/20 20:05 Carbidopa/Levodop 10/100mg Tab PO 06/08/20 22:16 1 tab TID CHINTAN Administration Clozapine 50 mg 05/10/20 09:00 05/10/20 09:10 Clozapine 25 Mg Tab PO 06/09/20 08:59 Not Given DAILY CHINTAN Clozapine 300 mg 05/10/20 09:00 05/10/20 09:10 Clozapine 100 Mg Tab PO 06/09/20 08:59 Not Given DAILY CHINTAN Pantoprazole Sodium 40 mg/ 100 mls @ 20 mls/hr 05/09/20 15:14 05/11/20 04:53 Dextrose IV 06/08/20 15:13 8 mg/hr Q5H CHINTAN 20 mls/hr Administration 8 MG/HR Cefepime HCl 2,000 mg/ Syringe 20 mls @ 5.5 mls/min 05/10/20 04:00 05/11/20 04:25 IV 05/20/20 03:59 5.5 mls/min Q12H CHINTAN Administration Protocol Metronidazole 500 mg in 100 mls @ 100 mls/hr 05/10/20 00:00 05/11/20 01:16 Flagyl IV 05/20/20 00:00 Infused Q8H CHINTAN Infusion Potassium Chloride/Sodium Chloride 20 meq in 1,000 mls @ 100 mls/hr 05/09/20 23:00 05/11/20 06:00 Normal Saline W/20 Meq Kcl IV 06/08/20 22:16 100 mls/hr .Q10H CHINTAN Administration Vancomycin HCl 1,000 mg/ 270 mls @ 135 mls/hr 05/10/20 04:00 05/11/20 06:30 Sodium Chloride IV 05/20/20 03:59 Infused Q12H CHINTAN Infusion Levetiracetam 750 mg 05/09/20 23:00 05/10/20 20:05 Levetiracetam 250 Mg Tab PO 06/08/20 22:59 750 mg BID CHINTAN Administration Metoprolol Tartrate 50 mg 05/09/20 23:00 05/10/20 20:08 Metoprolol Tartrate 50 Mg Tab PO 06/08/20 22:59 50 mg Q12 CHINTAN Administration Phenytoin Sodium 100 mg 05/09/20 23:00 05/10/20 20:06 Phenytoin Sodium Er 100 Mg Cap PO 06/08/20 22:59 100 mg BID CHINTAN Administration NPO Date Last Intake of Fluids: 05/10/20 Time Last Intake of Fluids: 23:59 Date Last Intake of Solids: 05/10/20 Time Last Intake of Solids: 23:59 Past Medical History Medical History Hypertension Seizure Seizure disorder Social History Smoking Status: Never smoker Hx Alcohol Use: No Hx Substance Use: No Physical Exam Vital Signs Last Vital Signs Temp 98.2 F 05/10/20 23:02 Pulse 71 05/10/20 23:02 Resp 16 05/10/20 23:02 BP 164/76 H 05/10/20 23:02 Pulse Ox 98 05/10/20 23:02 Testing Laboratory Results 05/11/20 03:27 05/11/20 03:27 PT 11.4 Seconds (9.0-12.0) 05/09/20 15:46 INR 1.1 (0.9-1.1) 05/09/20 15:46 APTT 28.5 Seconds (21.0-31.0) 05/09/20 15:46 Urine Color Dark Yellow 05/09/20 14:55 Urine Appearance Turbid (Clear) A 05/09/20 14:55 Urine pH 6.5 (4.5-7.5) 05/09/20 14:55 Ur Specific [place] 1.021 (1.000-1.030) 05/09/20 14:55 Urine Protein 1+ (Negative) H 05/09/20 14:55 Urine Glucose (UA) Negative (Negative) 05/09/20 14:55 Urine Ketones Trace (Negative) H 05/09/20 14:55 Urine Nitrite Negative (Negative) 05/09/20 14:55 Ur Leukocyte Esterase 3+ (Negative) H 05/09/20 14:55 Urine WBC (Auto) >30 /hpf (0-5) H 05/09/20 14:55 Urine RBC (Auto) >30 /hpf (0-4) H 05/09/20 14:55 U Hyaline Cast (Auto) 1-5 /lpf (0-5) 05/09/20 14:55 U Epithel Cells (Auto) 20-30 /lpf (0-5) H 05/09/20 14:55 Urine Bacteria (Auto) 4+ (Negative) H 05/09/20 14:55 Blood Type O Positive 05/09/20 15:46 Antibody Screen NEGATIVE 05/09/20 15:46 05/09/20 15:46 Aerobic Blood Culture - Preliminary Blood Gram negative bacilli Anaerobic Blood Culture - Preliminary No growth in Anaerobic bottle after 24 hours. 05/09/20 19:13 Aerobic Blood Culture - Preliminary Blood No growth in Aerobic bottle after 24 hours. Anaerobic Blood Culture - Preliminary No growth in Anaerobic bottle after 24 hours. 05/09/20 14:55 Urine Culture - Final Urine,Straight Cath More than three types of organisms present, all high counts. Repeat collection recommended. No further identifications or sensitivities to follow. Electrocardiogram Date: 05/09/20 Normal sinus rhythm, rate 67 bpm Normal ECG When compared with ECG of 26-AUG-2019 18:58, Non-specific change in ST segment in Lateral leads Nonspecific T wave abnormality no longer evident in Inferior leads Nonspecific T wave abnormality, improved in Anterolateral leads Confirmed by Reddy Medina ([id number]) on 05/10/2020 2:12:34 PM Chest X-Ray Date: 05/09/20 Findings: + NAD
[2020-05-11] MEDS: metroNIDAZOLE 500 MG/100 ML BAG IV SCH ×2 (09:57→16:24)
[2020-05-11] MEDS: cloZAPine 100 MG TAB PO SCH ×2 (09:59→10:00)
[2020-05-11] MEDS: levETIRAcetam 250 MG TAB PO SCH ×3 (09:59→20:45)
[2020-05-11] MEDS: METOPROLOL TARTRATE 50 MG TAB PO SCH ×3 (09:59→20:45)
[2020-05-11] MEDS: PHENYTOIN SODIUM ER 100 MG CAP PO SCH ×3 (09:59→20:44)
[2020-05-11] MEDS: CARBIDOPA/LEVODOP 10/100MG TAB PO SCH ×4 (10:00→20:45)
[2020-05-11] MEDS: cloZAPine 25 MG TAB PO SCH ×2 (10:00)
[2020-05-11] MEDS ORDERED: ONDANSETRON INJ 2 MG/ML 2 ML VIAL ONE (13:07)
[2020-05-11] MEDS ORDERED: PROPOFOL IV EMULSION 10 MG/ML 20 ML VIAL IV ONE (13:07)
[2020-05-11] MEDS ORDERED: DEXAMETHASONE SOD INJ 4 MG/ML VIAL ONE (13:07)
[2020-05-11] MEDS ORDERED: MIDAZOLAM HCL 1 MG/ML 2ML VIAL ONE (13:07)
[2020-05-11] MEDS ORDERED: ePHEDrine sulfate 50 MG/ML SYR ONE (13:07)
[2020-05-11] MEDS ORDERED: PHENYLEPHRINE 100MCG/ML 5ML SYR ONE (13:07)
[2020-05-11] MEDS ORDERED: LIDOCAINE HCL 2% 2 ML VIAL/AMP(20MG/ML) INFIL ONE (13:07)
[2020-05-11] MEDS ORDERED: fentaNYL citrate 100 MCG/2 ML VIAL ONE (13:07)
[2020-05-11] MEDS ORDERED: fentaNYL citrate 100 MCG/2 ML VIAL IV PRN (13:58)
[2020-05-11] MEDS ORDERED: ONDANSETRON INJ 2 MG/ML 2 ML VIAL IV PRN (13:58)
[2020-05-11] MEDS ORDERED: ePHEDrine sulfate 50 MG/ML AMP IV PRN (13:58)
[2020-05-11] MEDS ORDERED: ATROPINE SULFATE 0.1 MG/ML 10ML SYR IV PRN (13:58)
--- NOTE | 2020-05-11 14:55 | Operative Report ---
PG Post Operative Report Pre & Post Diagnosis Operation Date: 05/11/20 13:50 Pre: retained ureteral stent (left) Post: retained ureteral stent (left) <No data on this case meets the specified criteria> I identified the patient and participated in the time-out.: Yes Procedure Operation Date: 05/11/20 13:50 Procedure: cystoscopy, left ureteral stent removal; left ureteroscopy <No data on this case meets the specified criteria> Surgeon Reddy Brunner MD Nitrate Operator none Estimated Blood Loss 0 Findings Consistent with Post-Op Diagnosis Specimens none Description of Procedure The patient was identified in the preoperative holding area, appropriate informed consents were reviewed and completed and the patient was transferred to the operative suite. Upon arrival, appropriate antibiotics and anesthesia were administered and the patient was placed in dorsal lithotomy position and prepped and draped in sterile fashion. To begin the case to pass a 22 Portuguese cystoscope with 30 degree lens. Inspection revealed healthy appearing bladder. A left ureteral stent was visualized protruding from the orifice. There was minimal inflammation of the periureteral tissue. Her stent was not encrusted with stone. There were no other abnormalities appreciated. The distal aspect of the stent was grasped with a flexible grasper and withdrawn to the meatus under fluoroscopic guidance. I attempted to intubate it with a sensor wire, however there was some debris within the lumen of the stent and I elected to abort attempts to move a wire retrograde. I reentered the bladder and passed a wire adjacent to the stent. I then withdrew the stent with gentle traction and it was withdrawn without difficulty or resistance. I then elected to pass a semirigid ureteroscope into the bladder and ultimately into the left ureter. I was able to guide this through the ureter into the kidney without difficulty. There were no strictures, there were no stones and there was no significant inflammation. It was a wide caliber ureter. After confirming I saw no stones within the ureter or other occlusive anatomy, I elected to withdraw the scope and leave her stent free. The wire was withdrawn and she was extubated and taken to the PACU in stable condition. Of note, I did place a fresh 16 Portuguese catheter prior to concluding the case. I attest to the content of the Intraoperative Record and any orders documented therein. Any exceptions are noted below.
--- NOTE | 2020-05-11 14:57 | Fluoroscopy Report ---
FL KUB HISTORY: 64 years-old Female LT CYSTO/LASER/STENT EXCHANGE COMPARISON: CT abdomen and pelvis 05/09/2020 TECHNIQUE: One spot fluoroscopic image of the abdominal left upper quadrant was obtained utilizing 1. 5 seconds fluoroscopy time FINDINGS: Left-sided ureteroscope with guidewire is noted overlying the expected location of the left renal pel vis. Nephrolithiasis without ureteral calculi identified. IMPRESSION: Fluoroscopic assistance as above. ACT 112: Negative or not required by law. The above report was generated using voice recognition software. It may contain grammatical, syntax o r spelling errors. Electronically signed by: Romel Tomlinson M.D. 05/11/2020 2:55 PM
--- NOTE | 2020-05-11 15:20 | Anesthesiology Progress Note ---
Date of Service May 11, 2020 Anesthesia Post Procedure Vital Signs Vital Signs: Temp Pulse Pulse Resp BP Pulse Ox 05/11/20 14:56 97.5 F L 88 12 133/80 98 05/11/20 13:45 98.4 F 89 18 165/94 H 99 05/11/20 08:30 97.7 F 83 18 168/96 H 97 05/10/20 23:02 98.2 F 71 16 164/76 H 98 05/10/20 20:06 89 154/90 H 05/10/20 16:01 97.9 F 87 18 148/84 H 98 Transfer of Care Handoff Completed per policy Notes Mental Status: alert / awake / arousable and participated in evaluation Patient Amnestic to Procedure: Yes Nausea / Vomiting: adequately controlled Pain: adequately controlled Airway Patency, RR, SpO2: stable & adequate BP & HR: stable & adequate Hydration State: stable & adequate Anesthetic Complications: no major complications apparent and Pt Satisfied with anesthetic care
--- NOTE | 2020-05-11 16:10 | Hospitalist Progress Note ---
Date of Service May 11, 2020 Assessment & Plan (1) UTI (urinary tract infection): Urinary tract infection, left ureteral stent, & left hydronephrosis. - Continue cefepime & metronidazole - To OR today for stent replacement, lithotripsy (2) Bacteremia: Blood culture on 05/09 with Gram(-) bacilli. - As above for UTI (3) Confusion: Likely infectious encephalopathy due to combination of complicated urinary tract infection and bacteremia. - Improving today (4) S/P ureteral stent placement: Has most recently seen Dr. Beasley from urology, who was be consulted. - Continue tamsulosin - Procedure as above (5) Hypertension: BP was 170/95 today. - Continue metoprolol - Restart amlodipine & losartan - Hold HCTZ & KCl (6) Proctocolitis with rectal bleeding: CT a/p on 05/09 showed rectal and colon wall thickening as above suggestive of a non-specific proctocolitis. - Patient had large BM on 05/09. - Abx as above - Discontinued sorbitol - Follow stool culture from 05/09 (7) Seizure disorder: No seizures noted inpatient. - Continue usual meds: clozapine, Keppra, phenytoin (8) Parkinsons: Stable at present time. - Continue carbidopa-levodopa - Monitor for Parkinsonism symptoms (9) DVT prophylaxis: SCDs - Consider heparin after procedure if no bleeding seen Admission and Anticipated Discharge Date Admission Date: May 09, 2020 Subjective Easily wakes up. Reports she is doing "better" today. Reports no fevers/chills, chest pain, shortness of breath, abdominal pain, nausea, or vomiting. Physical Exam Constitutional: WD/WN, vitals as above Eyes: EOM intact bilaterally; no conjunctival abnormality ENMT: external ear and nose normal, oropharynx normal Neck: trachea midline, no thyromegaly normal visual inspection Respiratory: normal respiratory effort, lungs clear to auscultation no respiratory distress Cardiovascular: RRR, no murmur, no edema Gastrointestinal (Abdomen): Inspection/Auscultation: abdomen normal to inspection; abdomen not distended Musculoskeletal: no cyanosis or clubbing, extremities motor strength 5/5 Skin: no rashes, warm and dry Neurologic: moves all extremities and awake Psychiatric: Orientation: alert, oriented to person and cooperative Results & Data Results & Data ([facility]) Vital Signs (Past 12 Hours) Vital Signs Temp Pulse Pulse Resp BP Pulse Ox 05/11/20 15:50 72 16 170/96 H 98 05/11/20 15:35 36.4 C L 74 14 163/95 H 98 05/11/20 15:25 75 13 158/94 H 98 05/11/20 15:15 77 12 147/92 H 99 05/11/20 15:05 77 12 140/91 99 05/11/20 14:56 36.4 C L 88 12 133/80 98 05/11/20 13:45 36.9 C 89 18 165/94 H 99 05/11/20 08:30 36.5 C 83 18 168/96 H 97 PG Care Time/CCT Total # of Minutes Spent Total Time Spent with Patient: Total time spent is greater than 50% in c oordination of care (as documented) at patient's floor/unit and/or counseling patient: Coding Level of Care Code 38082 Subseq Hosp Care Lvl 3 Diagnoses UTI (urinary tract infection) N30.00 Hematuria presence: without hematuria Urinary tract infection type: acute cystitis Bacteremia R78.81 Confusion R41.0 S/P ureteral stent placement Z96.0 Hypertension I10 Proctocolitis with rectal bleeding K52.9; K62.5 Seizure disorder G40.909 Parkinsons G20 DVT prophylaxis Z29.9 (1) UTI (urinary tract infection) Hematuria presence: without hematuria Urinary tract infection type: acute cystitis Qualified Code(s): N30.00 - Acute cystitis without hematuria
[2020-05-11] MEDS ORDERED: amLODIPine BESYLATE 5 MG TAB PO SCH (21:00)
[2020-05-12] MEDS: metroNIDAZOLE 500 MG/100 ML BAG IV SCH ×3 (00:18→16:02)
[2020-05-12] MEDS: CEFEPIME 2,000 MG in SYRINGE 0 ML IV SCH ×2 (03:40→12:43)
[2020-05-12 05:59] LABS: Hematocrit (blood only) 30.9 % (37-47); Hemoglobin 10.3 g/dL (12.0-16.0); Mean Corpuscular Hemoglobin 29.7 pg (25-34); Mean Corpuscular Hgb Conc 33.3 g/dL (32-36); Mean Platelet Volume 9.1 fL (7.4-10.4); Platelet Count 264 K/uL (130-400); RDW Standard Deviation 41.8 fL (36.4-46.3); Red Blood Count 3.47 M/uL (4.2-5.4); White Blood Count 10.52 K/uL (4.8-10.8)
[2020-05-12 06:24] LABS: Albumin Level 1.6 gm/dl (3.4-5.0); BUN Creatinine Ratio 22.8 (10-20); Calcium 7.5 mg/dl (8.5-10.1); Creatinine Clr Calc Pharmacy 85.5 ml/min; Est GFR (African American) 109.5; Est GFR (Non-African American) 94.5; Magnesium 1.5 mg/dl (1.8-2.4); Potassium 3.3 mmol/L (3.5-5.1)
[2020-05-12 06:37] LABS: Albumin Globulin Ratio 0.4 (0.9-2); Bilirubin,Total 0.3 mg/dl (0.2-1); Globulin 3.7 gm/dl (2.5-4.0); Phosphorus 1.3 mg/dl (2.5-4.9); Total Protein 5.3 gm/dl (6.4-8.2)
--- NOTE | 2020-05-12 08:02 | Urology Progress Note ---
Date of Service May 12, 2020 Assessment & Plan (1) Confusion: (2) UTI (urinary tract infection): (3) S/P ureteral stent placement: 64 year-old female patient, with multiple comorbidities, admitted with worsening confusion, proctocolitis, and UTI. -POD #1 cystoscopy, left ureteral stent removal, and left ureteroscopy. -Patient remains afebrile. -Labs reviewed - creatinine stable and white count normalized. -Urine culture with high counts of multiple organisms. -Blood culture growing Klebsiella Pneumoniae. -Continue with supportive care and antibiotic therapy per primary team. -No additional acute intervention required at this time. -Will arrange outpatient follow-up with urology service once discharge. Thank you for allowing us to participate in the acute care of Mrs. Roberts. Please reconsult us with additional questions, concerns or changes in patient status. Admission and Anticipated Discharge Date Admission Date: May 09, 2020 Subjective POD #1 cystoscopy, left ureteral stent removal and left ureteroscopy. Patient examined, reports she feels "good". No reported issues overnight. Denies any pain. Tolerating cedeño catheter. Patient requests to go back to sleep and rest. Chart review: Afebrile. Wbc 10.52 Hgb 10.3 Creatinine 0.65 Urine culture showing high counts mixed organisms. Preliminary blood culture x1 with Klebsiella pneumoniae. Patient currently on IV Cefepime and IV Metronidazole. Denies additional urologic concerns today. Review of Systems Constitutional: as per Subjective / HPI; no fever and no chills Gastrointestinal: as per Subjective / HPI; no nausea and no vomiting Genitourinary: as per Subjective / HPI Physical Exam Constitutional: cooperative and comfortable; no acute distress and not ill appearing Respiratory: normal respiratory effort and able to speak in complete sentences; no respiratory distress and no audible wheezes Gastrointestinal (Abdomen): Inspection/Auscultation: abdomen normal to inspection; abdomen not distended Percussion/Palpation: abdomen soft; abdomen nontender and no guarding Neurologic: Easily arousable. Psychiatric: Orientation: alert, oriented to person and cooperative; + not oriented to place and + not oriented to time Genitourinary: no CVA tenderness Cedeño catheter intact draining clear yellow urine. Results & Data ([facility]) Vital Signs (Past 12 Hours) Vital Signs Temp Pulse Resp BP BP Pulse Ox 05/12/20 07:12 36.5 C 83 18 172/80 H 96 05/11/20 22:26 36.6 C 70 20 145/82 H 98 PG Care Time/CCT Total # of Minutes Spent Total Time Spent with Patient: Total time spent is greater than 50% in coordination of care (as documented) at patient's floor/unit and/or counseling patient: Coding Level of Care Code 97484 Subseq Hosp Care Lvl 2 Diagnoses Confusion R41.0 UTI (urinary tract infection) N39.0; R31.9 Hematuria presence: with hematuria Urinary tract infection type: site unspecified S/P ureteral stent placement Z96.0 (1) UTI (urinary tract infection) Hematuria presence: with hematuria Urinary tract infection type: site unspecified Qualified Code(s): N39.0 - Urinary tract infection, site not specified; R31.9 - Hematuria, unspecified
[2020-05-12] MEDS ORDERED: LOSARTAN POTASSIUM 50 MG TAB PO SCH (09:00)
[2020-05-12] MEDS ORDERED: POTASSIUM CHLORIDE CRTAB 20 MEQ TABCR PO SCH (09:00)
--- NOTE | 2020-05-12 09:02 | Anesthesiology Progress Note ---
Date of Service May 12, 2020 Anesthesia Post Procedure Vital Signs Vital Signs: Temp Pulse Pulse Resp BP BP Pulse Ox 05/12/20 07:12 36.5 C 83 18 172/80 H 96 05/11/20 22:26 36.6 C 70 20 145/82 H 98 05/11/20 19:02 36.5 C 94 H 16 144/87 H 98 05/11/20 17:04 36.3 C L 69 16 172/95 H 99 05/11/20 16:35 36.4 C L 74 16 174/93 H 99 05/11/20 16:00 36.4 C L 72 18 170/92 H 100 05/11/20 15:50 72 16 170/96 H 98 05/11/20 15:35 36.4 C L 74 14 163/95 H 98 05/11/20 15:25 75 13 158/94 H 98 05/11/20 15:15 77 12 147/92 H 99 05/11/20 15:05 77 12 140/91 99 05/11/20 14:56 36.4 C L 88 12 133/80 98 05/11/20 13:45 36.9 C 89 18 165/94 H 99 Transfer of Care Handoff Completed per policy Notes Mental Status: alert / awake / arousable (Patient was asleep when I visited.) Nausea / Vomiting: adequately controlled Pain: adequately controlled Airway Patency, RR, SpO2: stable & adequate BP & HR: stable & adequate Hydration State: stable & adequate Anesthetic Complications: no major complications apparent
[2020-05-12] MEDS: cloZAPine 25 MG TAB PO SCH (10:10)
[2020-05-12] MEDS: cloZAPine 100 MG TAB PO SCH (10:11)
[2020-05-12] MEDS: CARBIDOPA/LEVODOP 10/100MG TAB PO SCH ×2 (10:11→14:30)
[2020-05-12] MEDS: METOPROLOL TARTRATE 50 MG TAB PO SCH (10:12)
[2020-05-12] MEDS: levETIRAcetam 250 MG TAB PO SCH (10:13)
[2020-05-12] MEDS: PHENYTOIN SODIUM ER 100 MG CAP PO SCH (10:13)
--- NOTE | 2020-05-12 13:49 | Hospitalist Progress Note ---
Date of Service May 12, 2020 Assessment & Plan (1) UTI (urinary tract infection): Urinary tract infection, left ureteral stent, & left hydronephrosis. - To OR on 05/11 for stent replacement, lithotripsy - Blood culture growing moses-sensitive Klebsiella on 05/09 -> Switch to ceftriaxone (2) Bacteremia: Blood culture on 05/09 with moses-sensitive Klebsiella. - As above for UTI (3) Confusion: Likely infectious encephalopathy due to combination of complicated urinary tract infection and bacteremia. - Resolved today (4) S/P ureteral stent placement: Has most recently seen Dr. Beasley from urology, who was be consulted. - Continue tamsulosin - Procedure as above (5) Hypertension: BP was 170/80 today. - Continue metoprolol - Restarted amlodipine & losartan on 05/12 - Restart HCTZ & KCl (6) Proctocolitis with rectal bleeding: CT a/p on 05/09 showed rectal and colon wall thickening as above suggestive of a non-specific proctocolitis. - Patient had large BM on 05/09. - Stool culture from 05/09 is negative. - Abx as above - Discontinued sorbitol (7) Seizure disorder: No seizures noted inpatient. - Continue usual meds: clozapine, Keppra, phenytoin (8) Parkinsons: Stable at present time. - Continue carbidopa-levodopa - Monitor for Parkinsonism symptoms (9) DVT prophylaxis: Heparin 5,000 units SQ Q12h Admission and Anticipated Discharge Date Admission Date: May 09, 2020 Subjective Peppy today. She is very happy today and reports she is doing well. Reports no fevers/chills, chest pain, shortness of breath, abdominal pain, nausea, or vomiting. Physical Exam Constitutional: WD/WN, vitals as above Eyes: EOM intact bilaterally; no conjunctival abnormality ENMT: external ear and nose normal, oropharynx normal Neck: trachea midline, no thyromegaly normal visual inspection Respiratory: normal respiratory effort, lungs clear to auscultation no respiratory distress Cardiovascular: RRR, no murmur, no edema Gastrointestinal (Abdomen): Inspection/Auscultation: abdomen normal to inspection; abdomen not distended Musculoskeletal: no cyanosis or clubbing, extremities motor strength 5/5 Skin: no rashes, warm and dry Neurologic: moves all extremities and awake Psychiatric: Orientation: alert, oriented to person and cooperative Results & Data Results & Data ([facility]) Vital Signs (Past 12 Hours) Vital Signs Temp Pulse Resp BP Pulse Ox 05/12/20 07:12 36.5 C 83 18 172/80 H 96 PG Care Time/CCT Total # of Minutes Spent Total Time Spent with Patient: Total time spent is greater than 50% in coordination of care (as documented) at patient's floor/unit and/or counseling patient: Coding Level of Care Code 77422 Subseq Hosp Care Lvl 2 Diagnoses UTI (urinary tract infection) N39.0; R31.9 Hematuria presence: with hematuria Urinary tract infection type: site unspecified Bacteremia R78.81 Confusion R41.0 S/P ureteral stent placement Z96.0 Hypertension I10 Proctocolitis with rectal bleeding K52.9; K62.5 Seizure disorder G40.909 Parkinsons G20 DVT prophylaxis Z29.9 (1) UTI (urinary tract infection) Hematuria presence: with hematuria Urinary tract infection type: site unspecified Qualified Code(s): N39.0 - Urinary tract infection, site not specified; R31.9 - Hematuria, unspecified
[2020-05-12] MEDS ORDERED: cefTRIAXone SODIUM 1,000 MG in DEXTROSE 5% 50 ML IV SCH (16:00)
--- NOTE | 2020-05-12 16:17 | Discharge Summary ---
Date of Service May 12, 2020 Admission HPI Per Admitting Provider The patient is a 64-year-old female with history of hypertension, seizure disorder, hypotension, hypoxia, respiratory distress, sepsis, left ureteral stent, and Parkinson's. She is referred from [facility] due to increasing confusion, lethargy and diarrhea. Work-up in the emergency department included a CT scan of the abdomen and pelvis which showed a nonspecific proctocolitis, left hydroureteronephrosis, left ureteral stent and thickening of the bladder wall and anterior superior area by a masslike lesion. She was COVID-19 test negative. Potassium was 3.4, BMP 2.0, WBC 14.37, and hemo globin 11.3. Principal Diagnosis Klebsiella bacteremia Discharge Exam Constitutional WD/WN, vitals as above Eyes EOM intact bilaterally; no conjunctival abnormality ENMT external ear and nose normal, oropharynx normal Neck trachea midline, no thyromegaly normal visual inspection Respiratory normal respiratory effort, lungs clear to auscultation no respiratory distress Cardiovascular RRR, no murmur, no edema Gastrointestinal (Abdomen) Inspection/Auscultation: abdomen normal to inspection; abdomen not distended Musculoskeletal no cyanosis or clubbing, extremities motor strength 5/5 Skin no rashes, warm and dry Neurologic moves all extremities and awake Psychiatric Orientation: alert, oriented to person and cooperative Discharge Data Allergies Allergy/AdvReac Type Severity Reaction Status Date / Time metformin Allergy Mild NAUSEA Verified 05/09/20 18:10 Cipro Allergy Unknown unknown Unverified 07/01/14 13:34 ciprofloxacin Allergy Unknown Unknown Verified 05/09/20 18:10 Consultations 05/09/20 19:46 ED Decision to Admit Stat 05/09/20 22:17 Consult Case Management - Discharge Planning Routine 05/10/20 05:53 Consult Urology Routine Procedures Performed Operation Date: 05/11/20 13:50 Actual Procedures p Cystoscopy, Left Ureteroscopy (Left) - Otis Brunner MD Ordered Studies 05/09/20 14:58 CT abd pelvis IV con only Stat 05/11/20 13:50 FL KUB Routine FL fluoroscopy <1hr Routine Hospital Course (1) UTI (urinary tract infection): Urinary tract infection, left ureteral stent, & left hydronephrosis. - To OR on 05/11 for stent replacement, lithotripsy -> No new stent needed. Ureter was clear. - Blood culture grew moses-sensitive Klebsiella on 05/09 -> Switched to cefdinir x 8 more days for a total of 10+ days of antibiotics. Follow up with urology in 2 weeks. (2) Bacteremia: Blood culture on 05/09 with moses-sensitive Klebsiella. - As above for UTI (3) Confusion: Likely infectious encephalopathy due to combination of complicated urinary tract infection and bacteremia. - Resolved today (4) S/P ureteral stent placement: Has most recently seen Dr. Beasley from urology, who was be consulted. - Continue tamsulosin - Procedure as above (5) Hypertension: BP was 145/80 today. - Continue metoprolol - Restarted amlodipine & losartan on 05/12 - Restart HCTZ & KCl (6) Proctocolitis with rectal bleeding: CT a/p on 05/09 showed rectal and colon wall thickening as above suggestive of a non-specific proctocolitis. - Patient had large BM on 05/09. - Stool culture from 05/09 is negative. - Abx as above (7) Seizure disorder: No seizures noted inpatient. - Continue usual meds: clozapine, Keppra, phenytoin (8) Parkinsons: Stable at present time. - Continue carbidopa-levodopa - Monitor for Parkinsonism symptoms (9) DVT prophylaxis: Heparin 5,000 units SQ Q12h Total Time Total Time Spent Total Time Spent (In Minutes): 35 Discharge Plan Discharge Items Patient Disposition: Trans Resident Long-Term Care Reason For Visit: PROCTOCOLITIS,UTI Discharge Diagnosis: Urinary tract infection with bacteremia Activity: Resume your previous activity Non-emergency contact: Primary Care Provider and Urologist Call non-emergency contact if: your symptoms worsen and your temperature is above 101 Follow-up/Referrals: Marifer Penn [Primary Care Provider] - Diet: Heart Healthy Addtl Attending Provider Instructions: Ms. Roberts was admitted with altered mental status from a UTI that got into her bloodstream. She was treated with antibiotics and got much better. She will be discharged on 8 more days of antibiotics and will need to follow up with urology in 1-2 weeks. Pending Studies at Discharge: No Stand-Alone Forms: My [employer] Skilled Items Patient informed of condition?: Yes DNR: No Discharge Level of Care: Skilled Communicable Disease: No Discharge Prognosis: Improving Lines: None Urinary Catheter: No Medications and DC Order Prescriptions: New cefdinir 300 mg capsule 300 mg PO BID Qty: 16 RF: 0 Continued acetaminophen [Tylenol] 325 mg Tablet 650 mg PO Q8H MDD 3 GMS APAP/24 HOURS PRN (Reason: Fever Or Pain) RF: 0 acetaminophen 650 mg Suppository 650 mg CA Q4H MDD 3 GMS APAP/24 HOURS PRN (Reason: Temp>101) RF: 0 levetiracetam 500 mg Tablet 750 mg PO BID RF: 0 polyvinyl alcohol [Artificial Tears (polyvin alc)] 1.4 % Drops 1 drp OPHTHALMIC (EYE) BID RF: 0 clonidine HCl 0.3 mg Tablet 0.3 mg PO Q8H RF: 0 phenytoin sodium extended [Dilantin Extended] 100 mg Capsule 100 mg PO BID RF: 0 amlodipine [Norvasc] 10 mg Tablet 10 mg PO HS RF: 0 carbidopa-levodopa 10-100 mg Tablet 1 tab PO TID RF: 0 atropine 1 % Drops 2 drp sublingual Q4H PRN (Reason: Excessive Salivation) RF: 0 losartan [Cozaar] 100 mg Tablet 100 mg PO DAILY RF: 0 sorbitol 70 % Solution 30 ml PO BID RF: 0 selenium sulfide 1 % Shampoo 1 applic TOPICAL [id number] RF: 0 Hemorrhoidal Cream 0.25-1 % Cream 1 applic CA DIRECTED PRN (Reason: Pain/Itching) RF: 0 clozapine 100 mg Tablet 100 mg PO DAILY RF: 0 clozapine 50 mg Tablet 50 mg PO DAILY RF: 0 tamsulosin 0.4 mg Capsule 0.4 mg PO DAILY RF: 0 hydrochlorothiazide 25 mg Tablet 25 mg PO DAILY RF: 0 clozapine 200 mg Tablet 200 mg PO DAILY RF: 0 cholecalciferol (vitamin D3) [Vitamin D3] 125 mcg (5,000 unit) Tablet 10,000 unit PO DAILY RF: 0 potassium chloride 20 mEq Tablet Extended Release 20 meq PO QAM RF: 0 Senna Plus 8.6-50 mg Capsule 2 tab PO BID RF: 0 Nutritional Frozen Dessert 1 ea PO BID RF: 0 ondansetron 4 mg Tablet,Disintegrating 4 mg translingual Q4H PRN (Reason: Nausea And Vomiting) RF: 0 2 Surendra/Cc Supplement 1 ea QID RF: 0 magnesium hydroxide [Milk of Magnesia] 400 mg/5 mL Suspension 30 ml PO DAILY PRN (Reason: Constipation) RF: 0 bisacodyl [Dulcolax (bisacodyl)] 10 mg Suppository 10 mg CA DIRECTED PRN (Reason: Constipation) RF: 0 Fleet Enema 19-7 gram/118 mL Enema 118 ml CA DIRECTED PRN (Reason: Constipation) RF: 0 Changed metoprolol tartrate 100 mg Tablet 100 mg PO Q12H Qty: 0 RF: 0 Discharge Orders: Discharge Order (Routine); Ordered 05/12/20 Ordered By: Kalen Rossi Admission Data Admit Date/Time: 05/09/20 20:22 Attending Provider: Kalen Rossi Admit Provider: Aris Dominguez Primary Care Provider: Marifer Penn Other Providers: Fili, ; Aris Dominguez ; Kenyon Beasley Other Interventions: Discharge Summary Assessment (RN) Last Done: 05/12/20 14:44 Coding Level of Care Code D/C Day Management >30 mins Diagnoses UTI (urinary tract infection) N39.0; R31.9 Hematuria presence: with hematuria Urinary tract infection type: site unspecified Bacteremia R78.81 Confusion R41.0 S/P ureteral stent placement Z96.0 Hypertension I10 Proctocolitis with rectal bleeding K52.9; K62.5 Seizure disorder G40.909 Parkinsons G20 DVT prophylaxis Z29.9
[2020-05-12] MEDS ORDERED: HEPARIN SOD 5,000 UNIT/0.5 ML VIAL SQ SCH (21:00)
--- NOTE | 2020-05-19 12:08 | Coding Query ---
CODING QUERY To promote full compliance with coding requirements relating to patient care, provider participation is requested in all cases of rn chronic uncertainty. Please assist us with the question(s) below: Coding Question(s): Sepsis is documented on the ER H&P and Bacteremia is documented on the 05/11/20 Progress Note and on Discharge Summary. Due to conflicting documentation, please clarify below, in your clinical opinion. ( ) Sepsis. Please specify the source below: ( x ) likely due to UTI ( ) likely due to Other: Please Specify ( ) Unknown likely source ( ) Bacteremia ( x ) likely due to UTI ( ) likely due to Other: Please Specify ( ) Unknown likely source ( ) Other: Please Specify Physician's Response(s): Thank you Lilian Rawls Principal Diagnosis: "that condition established after study, to be chiefly responsible for occasioning the admission of the patient to the hospital for care." Co-Existing Principal Diagnosis: "when two or more diagnoses equally meet the criteria for principal diagnosis as determined by the circumstances of admission, diagnostic work up, and/or therapy provided, and the Alphabetic Index, Tabular List, or another coding guideline does not provide sequencing direction, any one of the diagnoses may be sequenced first." "When the physician has documented what appears to be a current diagnosis in the body of the record, but has not included the diagnosis in the final diagnostic statement, the physician should be asked whether the diagnosis should be added." (Source Coding Clinic 2 QTR90. p3-4) SAQIB
--- NOTE | 2020-05-19 12:12 | Coding Query ---
CODING QUERY To promote full compliance with coding requirements relating to patient care, provider participation is requested in all cases of plumbing foreman uncertainty. Please assist us with the question(s) below: Coding Question(s): There is documentation of UTI S/P ureteral stent placement. Please specify below, in your clinical opinion. ( ) UTI is likely a postprocedural complication ( x ) UTI is Not a postprocedural complication ( ) Other: Please Specify Physician's Response(s): She had a stent in place for several months. The UTI was not a result of the stent,but simply occurred in the setting of a stent already in place. Thank you Lilian Rawls Principal Diagnosis: "that condition established after study, to be chiefly responsible for occasioning the admission of the patient to the hospital for care." Co-Existing Principal Diagnosis: "when two or more diagnoses equally meet the criteria for principal diagnosis as determined by the circumstances of admission, diagnostic work up, and/or therapy provided, and the Alphabetic Index, Tabular List, or another coding guideline does not provide sequencing direction, any one of the diagnoses may be sequenced first." "When the physician has documented what appears to be a current diagnosis in the body of the record, but has not included the diagnosis in the final diagnostic statement, the physician should be asked whether the diagnosis should be added." ([facility] 2 QTR90. p3-4) SAQ[facility]
== END 2020-05-12 18:34 | DRG 872 ==
LOC: ED 14:15 → 3W 20:22 → SUATTDRO 20:22 → 3W 22:00